=== PATIENT | male | born 1985 | race Caucasian/White ===

== ENCOUNTER 2016-03-21 10:10 | Inpatient (IN) | payer OTHER ==
[2016-03-21] VITALS (12 sets, daily range): BP systolic 77–133; BP diastolic 52–67; PULSE 64–98; RESP 16–22; O2SAT 62–98
[~2016-03-21] VITALS: Ht 172.7 cm; Wt 80.9 kg
[~2016-03-21 10:10] MED LIST: POTA10TA19 PO
--- NOTE | 2016-03-21 11:02 | ED.REPORT ---
HPI-Chest Pain Under 40 Date of Service Mar 21, 2016 ED Provider: Kirk Eubanks MD 30 year old male with a history of renal tubular acidosis, and hypokalemia presents to the ER via EMS with 24-48 hours of left substernal chest pain sudden in onset, worsening today, he has been generally fatigued, somnolent. Patient denies recent immobilization, swelling of the lower extremities, any family history of cardiac problems, history of MT, and illicit drug use. Recently he stopped taking his prescribed potassium supplements. Discussion with the patient's mother he has stopped taking all of his medications because he "no longer wishes to live". The patient admits to suicidal ideation. Nursing Notes Stated Complaint: CHEST PAIN Chief Complaint: Chest Pain-Non Cardiac Nature Nursing Notes Reviewed: Yes Allergies: Coded Allergies: No Known Allergies (Unverified , 02/14/13) Scheduled Potassium Citrate-Expunged Drug, Do Not Renew (Hmpscx-U-Acrbiyao Drug, Do Not Renew!) 10 Meq Tablet.sa 10 MEQ PO QID Miscellaneous Medications Buspirone (Buspirone) 10 Mg Tablet Citalopram (Citalopram) 20 Mg Tablet Potassium Chloride (Potassium Chloride Powder) 20 Meq Packet Spironolactone (Spironolactone) 25 Mg Tablet Trazodone (Trazodone) 100 Mg Tablet General Time Seen by MD: 11:01 Chief Complaint Chest pain Hx Obtained From: Patient Arrived By: Ambulance Sudden in Onset?: Yes Onset Occurred: Yesterday Symptom Duration: Since onset Location: : Chest left: Substernal Quality: Pressure Severity: Current: Moderate Severity: Maximum: Moderate Similar Sx Previous: Yes Past Medical History Past Medical History Renal tubular acidosis Hypokalemia Smoking History Unknown if Ever Smoker Social History Drug Use: THC Ambulatory Status Independent Review of Systems Constitutional: Denies: Chills, Fever Respiratory: Denies: Non-productive cough, Shortness of breath Cardiovascular: Reports: Chest pain GI: Reports: Abdominal pain, Nausea Musculoskeletal: Denies: Back pain, Extremity pain, Extremity swelling, Neck pain Skin: Denies Diaphoresis Complete sys rev & neg: except as marked. Physical Exam Initial Vital Signs Vital Signs (First) Date Time Temp Pulse Resp B/P Pulse Ox O2 Delivery O2 Flow Rate FiO2 03/21/16 11:01 36.5 64 16 104/64 97 Nasal Cannula 2 Initial VS: Reviewed Head / Eyes: Atraumatic, Normocephalic Extremities: Vascular intact, Neuro intact, No swelling, No tenderness Skin: Warm, Dry, No cyanosis Neurologic: Alert, Oriented, Nonfocal General/Constitutional: Awake, Well appearing, Well developed, Well nourished Alertness: Positive: Somnolent Respiratory / Chest: Breath sounds NL, Breath sounds = bilat, No respiratory distress, No rales, No rhonchi, No wheezing, No chest tenderness Cardiovascular: Heart rate NL, Regular rhythm, Heart sounds NL, No murmurs, Peripheral circulation NL, Pulses = bilaterally, No gross BP differential Neck: Supple, Full range of motion, No swelling, Non-tender, No masses, No JVD ENT: Airway patent Mouth: Positive: Mucous membranes dry Interpretation & Diagnostics Lab Results Interpretation Result Diagram: 03/21/16 1131 03/21/16 1619 Test 03/21/16 11:31 03/21/16 14:05 03/21/16 16:19 White Blood Count 29.4th/mm3 (3.8-10.1) Red Blood Count 6.62mil/mm3 (4.40-5.80) Hemoglobin 20.1g/dL (13.8-17.2) Hematocrit 52.0% (41.0-50.0) Mean Corpuscular Volume 76.3fL (81-100) Mean Corpuscular Hemoglobin 30.4pg (27.0-35.0) Mean Corpuscular Hemoglobin Concent 39.8% (32.0-37.0) Red Cell Distribution Width 15.1% (12.3-15.4) Platelet Count 503bil/L (150-400) Neutrophils (%) (Auto) 83.2% (40-74) Lymphocytes (%) (Auto) 6.7% (14-46) Monocytes (%) (Auto) 8.4% (4-12) Eosinophils (%) (Auto) 0.2% (0-5) Basophils (%) (Auto) 0.1% (0-3) Prothrombin Time 10.6sec (8.1-12.5) Prothromb Time International Ratio 0.99ratio Lactic Acid Level 3.0mmol/L (0.4-2.0) Phosphorus Level 1.3mg/dL (2.5-4.9) Total Bilirubin 0.9mg/dL (0.0-1.2) Aspartate Amino Transf (AST/SGOT) 52U/L (0-50) Alanine Aminotransferase (ALT/SGPT) 76U/L (0-44) Alkaline Phosphatase 114U/L (25-150) Troponin T 0.149ug/L (0.0-0.011) Total Protein 8.2g/dL (6.4-8.4) Albumin 4.1g/dL (3.4-5.0) Prealbumin 27mg/dL (20-40) Lipase 98U/L (13-60) Hold Minor Top Tube Received (Received) Urine Color Yellow (YELLOW) Urine Appearance Clear (CLEAR,HAZY) Urine pH 8.0 (5.0-8.0) Urine Specific [place] 1.015 (1.003-1.035) Urine Protein 100mg/dL (NEG,TRACE) Urine Glucose (UA) Negativemg/dL (NEGATIVE) Urine Ketones Negativemg/dL (NEGATIVE) Urine Occult Blood Large (NEGATIVE) Urine Nitrite Negative (NEGATIVE) Urine Bilirubin Negative (NEGATIVE) Urine Urobilinogen Normalmg/dL (NORMAL) Urine Leukocyte Esterase Negative (NEGATIVE) Urine RBC 0-2/hpf (0-2) Urine WBC 0-5/hpf (0-5) Urine Epithelial Cells Occasional/hpf (NONE-MOD) Urine Crystals None seen (NONE SEEN) Urine Bacteria Few/hpf (NONE-FEW) Urine Hyaline Casts None/lpf (NONE) Urine Granular Casts Occasional (NONE SEEN) Urine Waxy Casts None seen (NONE SEEN) Urine Red Blood Cell Casts None seen (NONE SEEN) Urine White Blood Cell Casts None seen (NONE SEEN) Urine Mucus None seen (None Seen) Urine Trichomonas None seen (NONE SEEN) Urine Yeast None (NONE SEEN) Urinalysis Comment None Urine Culture Reflexed Not indicated Urine Random Creatinine 45mg/dL (24-392) Urine Random Sodium 30mEq/L Urine Random Potassium 19.0mEq/L Total Creatine Kinase 828U/L (21-232) Sodium Level 129mEq/L (134-144) Potassium Level 1.5mEq/L (3.5-5.2) Chloride Level 92mEq/L (97-108) Carbon Dioxide Level 18mmol/L (18-29) Blood Urea Nitrogen 15mg/dL (6-20) Creatinine 1.35mg/dL (0.76-1.27) Estimat Glomerular Filtration Rate 67mL/min (>59) Glucose Level 143mg/dL (60-99) Calcium Level 8.4mg/dL (8.5-10.1) Magnesium Level 3.1mg/dL (1.6-2.6) ECG Interpretation ECG Interpretation: Sinus rhythm, rate 61 ST elevation of greater than 2mm anterolateral leads with biphasic appearing T waves throughout. Prolonged MN interval and QT interval. Patient is in 2:1 block. No prior ECG available for comparison. Time: 11:21 Interpreted by: ED physician Re-Eval/Medical Decision Med Decision/Clinical Course In summary, the patient is a 30-year-old male with a known history of renal tubular acidosis and a history of severe hypokalemia for which he has been prescribed potassium supplementation. He presents to the emergency department with generalized chest pain, fatigue, weakness and not taking any of his medications including potassium supplementation in the setting of suicidal ideation. Upon arrival the patient was borderline hypotensive with EKG obtained as above the demonstrated anterolateral ST depressions, 2-1 atrioventricular block and U waves consistent with severe hypokalemia. IV access was obtained, IV fluids were administered and IV potassium repletion was immediately started based upon history and EKG changes. The patient was maintained on continuous cardiac monitoring. Initial laboratory studies were notable as below: Troponin 0.149 K+ 1.5 WBC 29.37 Hct 52 Platelet count 503 Coagulation studies normal Sodium 126 BUN 16 Creatinine 1.3 Mildly elevated transaminases Glucose 146 Lipase 98 UDS positive for THC, opiates. UA positive for blood, without signs of infection. We obtained a previous ECG from [facility] dated 02/25/2016 that demonstrated a similar 2:1 AV block. With IV fluid resuscitation, IV potassium and IV magnesium and the patient's blood pressure stabilized. He reported significant improvement. The patient made statements that he stopped taking his medications because he no longer wanted to live. The social staff worker became involved however given the patient's ongoing immediate medical needs. Psychiatric evaluation was deferred. The patient was discussed with nephrology as well as the admitting hospitalist and he was accepted for further management. Pt was additionally reviewed with cardiology. We discussed the patient's elevated troponin however this was not felt to be due to a focal lesion and they did not feel that he was a candidate for heparinization or cardiac catheterization at this time. Patient remained in the ED for full. Of time during which serial reassessments were reassuring. The patient's vital signs stabilized. The patient when underwent ongoing IV and oral potassium repletion. Pt was admitted to the intensive care unit for further management. Source of Hx: Old records Re-Evaluation/Progress : Time of Eval: 12:16 Re-Evaluation/Progress Note: Mother is now present, at bedside. She reports aggressive noncompliance with his medications and concern for patient's psychiatric history. Consultation #1: Consulted With: Cardiology Call Returned at: 11:37 Software Maintenance Engineer: Will see patient Note: Agrees to consult. Consultation #2: Referral / Consult Name: Duane Mata MD Consulted With: Hospitalist Call Returned at: 11:48 Software Maintenance Engineer: Agrees with eval, Agrees with plan, Accepts admit Counseled Regarding: Diagnosis, Lab results, Need for admission Discharge & Departure Primary Impression: Chest pain Chest pain type: other chest pain Qualified Code: R07.89 - Other chest pain Additional Impressions: Hypokalemia Renal tubular acidosis Hypomagnesemia Hypotension Hypotension type: unspecified hypotension type Qualified Code: I95.9 - Hypotension, unspecified Suicidal ideation Noncompliance with medication regimen Acute kidney injury Leukocytosis Leukocytosis type: unspecified Qualified Code: D72.829 - Elevated white blood cell count, unspecified Severe dehydration Disposition: ADMITTED TO HOSPITAL Discharge Condition All VS Reviewed: Yes Condition: Stable Referrals: NOPCP (PCP) Crit Care Except Billable Proc Time Spent: >225 minutes Services Performed: Patient management by me, Time spent at bedside, Reviewing test results, Reviewing imaging, Discussing patient care, Documentation in record, Time with fam/surrogate Critical Care Notes: Stabilization, management of IV drips, discussion with family and consultants, reassessment. Ander Attestation Portions of this note were transcribed by Mike Randhawa. I, Dr. Eubanks, personally performed the history, physical exam and medical decision-making; I reviewed and confirmed the accuracy of the information in the transcribed note. Signed by: Ander Rios, 03/21/2016 and 13:23 Kirk Eubanks MD Mar 21, 2016 11:02 MIKE RANDHAWA Mar 21, 2016 11:22
[2016-03-21] MEDS ORDERED: Potassium Chloride Inj 30 MEQ in Dextrose 5% 100 ML IV ONE ×2 (11:20→18:05)
[2016-03-21] MEDS: D5 0.9% NaCl + KCl 20 mEq/L 1,000 ML IV SCH ×2 (11:20→15:00)
[2016-03-21] MEDS ORDERED: Potassium Chloride Inj 30 MEQ in Dextrose 5% 500 ML IV ONE (11:27)
[2016-03-21 11:41] LABS: BASOPHILS % (AUTO) 0.1 % (0-3); EOSINOPHILS % (AUTO) 0.2 % (0-5); MONOCYTES % (AUTO) 8.4 % (4-12); Mean Corpuscular Hemoglobin 30.4 pg (27.0-35.0); Mean Corpuscular Volume 76.3 fL (81-100); NEUTROPHILS % (AUTO) 83.2 % (40-74); Platelet Count 503 bil/L (150-400)
[2016-03-21 12:02] LABS: INR 0.99 ratio
[2016-03-21] MEDS ORDERED: Heparin 5,000 Unit/mL Inj IVPUSH ONE (12:15)
[2016-03-21] MEDS ORDERED: Heparin 25K Unit/500mL 0.45 NS 25,000 UNIT in IV Premix 1 EACH IV ONE (12:15)
[2016-03-21] MEDS ORDERED: 0.9% Sodium Chloride 1,000 ML IV ONE ×2 (12:20→12:40)
[2016-03-21 12:24] LABS: Magnesium 2.4 mg/dL (1.6-2.6)
[2016-03-21 12:35] LABS: TROPONIN T 0.149 ug/L (0.0-0.011)
[2016-03-21] MEDS ORDERED: Magnesium Sulf 2 Gm/50mL Water 2 GM in IV Premix 1 EACH IV ONE (12:35)
[2016-03-21] MEDS ORDERED: Sucralfate 100 mg/mL 10 mL Suspension PO ONE (13:20)
[2016-03-21] MEDS ORDERED: Senna-Docusate 8.6-50 mg Tablet PO PRN (13:30)
[2016-03-21] MEDS ORDERED: Polyethylene Glycol (PEG) 17 Gm Powder PO PRN (13:30)
[2016-03-21] MEDS ORDERED: Lactated Ringer's 1,000 ML IV SCH (13:30)
[2016-03-21] MEDS ORDERED: Alum-Mag Hydrox-Simeth 30 mL Suspension PO PRN (13:30)
[2016-03-21] MEDS ORDERED: Potassium Chloride 20 mEq SR Tablet PO ONE (13:40)
--- NOTE | 2016-03-21 13:50 | DRSVH ---
PROCEDURE: X-RAY CHEST ONE VIEW ([id number]) INDICATIONS: leukocytosis TECHNIQUE: One view of the chest was acquired. COMPARISON: None. FINDINGS: Surgical changes and devices: None. Lungs and pleura: No pleural effusions or pneumothorax. There is mild atelectasis at the left base m edially. This could represent early infiltrate. Remainder of lungs clear. Mediastinum: Mediastinal contours appear normal. Heart size is normal. Bones and chest wall: No suspicious bony lesions. Overlying soft tissues appear unremarkable. IMPRESSION: Left basilar atelectasis/infiltrate, correlate clinically for pneumonia. Dictated by: Luis Domínguez M.D. on 03/21/2016 at 13:47 Approved by: Luis Domínguez M.D. on 03/21/2016 at 13:48
[2016-03-21] MEDS ORDERED: Potassium Phos (mEq) Inj 20 MEQ in Dextrose 5% 250 ML IV ONE (14:20)
[2016-03-21] MEDS ORDERED: SPIR25TA3 (14:40)
[2016-03-21] MEDS ORDERED: TRAZ-118 (14:40)
[2016-03-21] MEDS ORDERED: POTA20PA12 (14:40)
[2016-03-21] MEDS ORDERED: BUSP10TA2 (14:40)
[2016-03-21] MEDS ORDERED: CITA20TA11 (14:40)
[2016-03-21 14:45] LABS: APPEARANCE,URINE CLEAR (CLEAR,HAZY); COLOR,URINE YELLOW (YELLOW); OCCULT BLOOD,URINE LARGE (NEGATIVE); UROBILINOGEN,URINE NORMAL (NORMAL)
--- NOTE | 2016-03-21 15:40 | PCM.HPMED ---
Subjective Date of Service Mar 21, 2016 Primary Provider: Admitting Physician: Primary Care Physician: Michael Attending Physician: Chief Complaint: Chest pain, malaise, generalized body aches History of Present Illness: Feliberto Concepcion is a 30 year old male with past medical history significant for proximal renal tubular acidosis and depression who presents with chest pain, malaise, and generalized body aches. Patient has had numerous hospitalizations over the last year with similar symptoms. He states he has been hospitalized over 12 times in the last year. Records from [facility] show that he has had a long history of medication noncompliance and discharging from the hospital against medical advice. Most recent hospitalization was 02/25/16-12/05 for hypokalemia of less than 1.5. Today patient states that the chest pain is substernal and feels like a pressure. He denies any diaphoresis but does endorse nausea, vomiting, and shortness of breath. Chest pain is not relieved by positioning or exacerbated by deep breaths. He states he has had similar chest pain in the past but this is the worst it has ever been. He states the myalgias and malaise have been increasing in intensity over the last 3-4 days. He has had increased urination over the last few days but has had poor oral intake specifically fluids. He denies any sick contacts. Denies dizziness, lightheadedness, fever, chills, dysuria, diarrhea, constipation. Approximately a year ago the patient had been following with Dr. Auguste for his renal tubular acidosis. Due to noncompliance patient has not been seen recently. He states last primary care visit was with Suzette Alvarenga over a year ago. He also was followed by a psychiatrist at [place] but has not been seen in over a year. Patient states he has no desire to follow-up as "nothing seems to help his situation." He states his medication noncompliance is due to the taste and side effects of medications. Patient reports that he is fine with dying but has not actively attempted a suicide attempt besides stopping medications. Patient is currently homeless along with his parents. On presentation to the ED patient's vitals were temperature 36.5, pulse 64, respiratory rate 16, blood pressure 104/64, oxygen saturation 97% on 2 L nasal cannula. Initial labs revealed white blood cell count 29.4, hemoglobin 20.1, hematocrit 52.0, sodium 126, potassium 1.5, carbon dioxide 14, BUN 16, creatinine 1.3 to, and troponin T of 0.149. EKG was significant for U waves consistent with severe hypokalemia in 2-1 atrioventricular block. UDS positive for THC and opiates. Patient was given 30 mEq of potassium chloride 2, magnesium sulfate 2 g, and 2 L NS. Review of Systems: Comprehensive review of systems was conducted with the patient and found to be negative except as noted above in HPI. Allergies Coded Allergies: No Known Allergies (Unverified , 02/14/13) Home Medications Has not taken home medications for the past 12 months. States he was prescribed spironolactone, potassium citrate, magnesium, propranolol, trazodone, Celexa, and BuSpar. PMH Renal tubular acidosis Depression Anxiety Tobacco use Surgical History None Family History Significant cardiovascular disease present on maternal and paternal side. Mother - no known health concerns Father - diabetes Patient has a cousin who has a similar renal disease that is seen by a forklift material handler in [place]. Social History Occupation: unemployed Hx Alcohol Use: Yes (occasional) Hx Substance Use: Yes (daily marijuana use) Hx Tobacco Use: Yes (one pack per day) Smoking Status: Current Every Day Smoker Living Arrangement: Homeless Exam Vital Signs Vital Sign - Last Date Time Temp Pulse Resp B/P Pulse Ox O2 Delivery O2 Flow Rate FiO2 03/21/16 12:47 91 17 101/59 97 Room Air 2 03/21/16 11:01 36.5 Exam General: No acute distress, well-developed, well-nourished, appropriately interactive, poor hygiene HEENT: Normocephalic, atraumatic. External ears without defect. Pupils equal, round, and reactive to light and accommodation. Anicteric sclerae, moist conjunctivae, and no lid lag. Oropharynx free of erythema and cobble stoning. Mucous membranes dry. Neck: Supple with full range of motion. No jugular venous distension. No bruits. No lymphadenopathy or thyromegaly. Cardiovascular: Regular rate and rhythm with no murmurs, rubs, or gallops appreciated Pulmonary: Clear to auscultation bilaterally with no crackles, wheezes, or rhonchi. Normal respiratory effort with no use of accessory muscles. Abdomen: Bowel tones present. Soft, diffuse tenderness, nondistended. No hepatosplenomegaly or masses appreciated. Extremities: No clubbing, cyanosis, edema, or lymphadenopathy appreciated. Skin: Normal temperature, turgor, and texture; no rash, ulcers, or subcutaneous nodules appreciated. Neurological: Cranial nerves grossly intact. Normal muscle strength, tone, and bulk. Reflexes, coordination, and sensory function within normal limits. No known gait impairment. Psychiatric: Alert and oriented to person, place, and time. Lab and Diagnostics Labs Laboratory Tests Test 03/21/16 14:05 Urine Color Yellow Urine Appearance Clear Urine pH 8.0 Urine Specific [place] 1.015 Urine Protein 100mg/dL Urine Glucose (UA) Negativemg/dL Urine Ketones Negativemg/dL Urine Occult Blood Large Urine Nitrite Negative Urine Bilirubin Negative Urine Urobilinogen Normalmg/dL Urine Leukocyte Esterase Negative Urine RBC 0-2/hpf Urine WBC 0-5/hpf Urine Epithelial Cells Occasional/hpf Urine Crystals None seen Urine Bacteria Few/hpf Urine Hyaline Casts None/lpf Urine Granular Casts Occasional Urine Waxy Casts None seen Urine Red Blood Cell Casts None seen Urine White Blood Cell Casts None seen Urine Mucus None seen Urine Trichomonas None seen Urine Yeast None Urinalysis Comment None Urine Culture Reflexed Not indicated Urine Random Creatinine 45mg/dL Urine Random Sodium 30mEq/L Urine Random Potassium 19.0mEq/L UDS positive for THC and opiates. Result Diagram: 03/21/16 1131 03/21/16 1131 X-Rays, CTs and MRIs X-RAY CHEST ONE VIEW IMPRESSION: Left basilar atelectasis/infiltrate, correlate clinically for pneumonia. Dictated by: Luis Domínguez M.D. on 03/21/2016 at 13:47 Approved by: Luis Domínguez M.D. on 03/21/2016 at 13:48 12-lead ECG Sinus rhythm rate of 61 U waves present Assessment & Plan Feliberto Concepcion is a 30 year old male with past medical history significant for proximal renal tubular acidosis and depression who presents with chest pain, malaise, and generalized body aches. Admitted for severe hypokalemia. 1. Severe Hypokalemia, present on admission. Active. - Etiology secondary to renal tubular acidosis and medication noncompliance. - On admission potassium 1.5 and magnesium 2.4 - U waves present on EKG. - Potassium 30 mEq 2 replaced through peripheral line in ED. - Repeat potassium pending. - Monitor on telemetry. - Nephrology consulted. Appreciate time and expertise. 2. Renal tubular acidosis, present on admission. Active. - Patient was followed by Dr. Auguste, nephrology, but has not been seen in approximately year and is noncompliant with medications over the last 12 months. - Patient states she was supposed to be taking potassium and magnesium supplements along with spironolactone and propranolol. - Patient will need to be restarted on home medication regimen that he can be compliant with upon discharge. - Urinalysis and additional urine studies pending. -will hold off bicarbonate drip given severe hypokalemia - Nephrology consulted. Appreciate time and expertise 3. Chest pain due to suspected demand ischemia , present on admission. Active. - Likely secondary to hypokalemia and demand ischemia. - Initial troponin elevated at 0.149. Trending troponins 3. - EKG showed U-waves. - Metoprolol 12.5 mg twice a day. - Chest pain relieved with morphine. - Chest x-ray showed no acute cardiopulmonary process. - Echocardiogram planned for today. - Electrolyte management as above. 4. Leukocytosis, present on admission. Active. - Prior records from [facility] show persistent leukocytosis of unknown etiology. Patient has never completed a workup due to noncompliance. - On admission WBC 29.4. Patient is hemoconcentrated at this time. - Procalcitonin pending. - Repeat labs and we will continue to monitor. -will hold off empiric antibiotics 5. Elevated lactic acid, present on admission. Active. - Lactic acid of 3.0. - Fluids as above. - We will repeat. 6. Concern for suicidal thoughts, present on admission. Active. - Patient states he is fine with dying. He has been noncompliant with medications but no other attempts at suicide. - We will medically stabilized patient initially and then consider psychiatric evaluation. 7. Depression, present on admission. Chronic. - Patient states he was seen [facility] but has not followed up with them in over a year. - He has not taken his medications in over a year. - Medications included BuSpar, Celexa, and trazodone. 8. Hypovolemic, present on admission. Active. - Patient states she has had poor by mouth intake. - Fluids as above. - CBC appears hemoconcentrated. - We will continue to monitor. 9. Tobacco use, present on admission. Active. - Nicotine patch 21 mg daily. 10.hyponatremia,acute -hypovolumic -fluid replacement as above -continue monitor 11.Jonathan -prerenal -IV fluids as above dvt ppx ;lovenox Patient is admitted under inpatient status with expected length of stay greater than 2 minutes due to severity of presenting symptoms, risk of adverse event, and complexity of treatment plan. GI Prophylaxis: Not indicated VTE Prophylaxis: Sub-Q Enoxaparin Resuscitation Status: CPR: Attempt Resuscitation Time spent 60 minutes Attending Statement patient seen and examined with Dr Mays, I agree with the history,exam, impression and plan as outlined above GABO MAYS DO Mar 21, 2016 13:05 Duane Mata MD Mar 21, 2016 16:08
[2016-03-21 17:12] LABS: Magnesium 3.1 mg/dL (1.6-2.6)
[2016-03-21] MEDS ORDERED: Potassium Chloride 20 mEq/15 mL 15mL Oral Soln PO ONE ×2 (17:40→18:05)
[2016-03-21] MEDS ORDERED: KCL IV ONE (17:45)
[2016-03-21] MEDS ORDERED: [UNRECOGNIZED DRUG - OTHER] IV ONE (17:45)
[2016-03-21] MEDS ORDERED: Mag Sulf 4 Gm/100 mL IV Premix (Mag < 1.6 & Creat < 2) IV ONE (18:35)
[2016-03-21] MEDS ORDERED: Potassium Chloride 20 mEq/15 mL Oral Soln (K < 3 Creat <2) TUBE SCH (18:35)
[2016-03-21] MEDS ORDERED: Mag Sulf 2 Gm/50mL IV Premix(Mag < 1.6 & Creat > 2) IV ONE (18:35)
--- NOTE | 2016-03-21 18:36 | PCM.CHPMED ---
Subjective Date of Service: Mar 21, 2016 Provider requesting consult: Kirk Eubanks MD Primary Physician: Admitting Physician: Primary Care Physician: Suzette Alvarenga PA-C Attending Physician: Admit Status: From the Emergency Department, Full Admit Chief Complaint: Chief Complaint: Proximal RTA type II. . History of Present Illness: Nephrology consultation note: Attending Dr. Aguirre Feliberto Concepcion is a 30-year-old male with a past medical history significant for proximal renal tubular acidosis type II with associated hypokalemia who presents [facility] emergency department with complaints of nausea, vomiting, generalized weakness, myalgias and chest pain. The patient reports that he began having generalized weakness with myalgias 2-3 days ago which have been worsening in intensity. He reports that he had nausea and vomiting 4 episodes yesterday with mild diffuse abdominal pain. He had a mild episode of chest pain yesterday that resolved. He reports the chest pain became really "bad "today around 9:30 AM. He describes the chest pain as pressure-like sensation that is located substernally. The chest pain does not radiate. He had associated shortness of breath and diaphoresis. He reports he has had chest pain like this in the past but this is the worst episode he has had. He also reports suicidal ideation without a plan and denies ever attempting to commit suicide in the past. Additionally, he reports that he has been hearing voices, specifically hearing a radio playing in the background all day or hearing someone say something and he continues to hear it repeatedly all day, as well as, delusions. He reports he is homeless and lives out of his vehicle. He has had decreased PO intake and has not taken his medications for over one month. He also reports increased urination despite not drinking much fluid. He denies headache, lightheadedness or dizziness, current shortness of breath, fever, chills, dysuria, diarrhea or constipation. He denies recent NSAID use. He has no rashes. Of note, the patient has had numerous hospitalizations over the last year with similar symptoms. He states he has been hospitalized over 12 times in the last year. Records from [facility] show that he has had a long history of medication noncompliance and discharging from the hospital against medical advice. Most recent hospitalization was 02/25/16-02/29/16 for hypokalemia of less than 1.5. From Dr. Sanchez's note: Approximately a year ago the patient had been following with Dr. Auguste for his renal tubular acidosis. Due to noncompliance patient has not been seen recently. He states last primary care visit was with Suzette Alvarenga over a year ago. He also was followed by a psychiatrist at [place] but has not been seen in over a year. Patient states he has no desire to follow-up as "nothing seems to help his situation." He states his medication noncompliance is due to the taste and side effects of medications. Patient reports that he is fine with dying but has not actively attempted a suicide attempt besides stopping medications. Patient is currently homeless along with his parents. On presentation to the ED patient's vitals were temperature 36.5, pulse 64, respiratory rate 16, blood pressure 104/64, oxygen saturation 97% on 2 L nasal cannula. Initial labs revealed white blood cell count 29.4, hemoglobin 20.1, hematocrit 52.0, sodium 126, potassium 1.5, carbon dioxide 14, BUN 16, creatinine 1.3 to, and troponin T of 0.149. EKG was significant for U waves consistent with severe hypokalemia in 2-1 atrioventricular block. UDS positive for THC and opiates. Patient was given 30 mEq of potassium chloride 2, magnesium sulfate 2 g 1, 1 L NS, and 1 L D5W KCl. . Review of Systems: A comprehensive review of systems was conducted with the patient and found to be negative except as above in the History of Present Illness. . PMH Past Medical History 1. Proximal renal tubular acidosis type II. 2. Depression likely with psychotic features. 3. Anxiety. . Surgical History None. . Home Medications The patient reports he has not taken these medications in over one month: Unknown doses of: Risperidone, BuSpar, Celexa, and propanolol. Potassium citrate 10 mEq 4 times a day. . Allergies: Coded Allergies: No Known Allergies (Unverified , 02/14/13) Family History Family History Mother with unknown type of arthritis otherwise healthy. Father with diabetes mellitus type II and depression. One biological brother who is healthy. One biological sister who was diagnosed with Gittelman syndrome, however, likely RTA. Half-brother who has unknown type of arthritis. Half-sister who is healthy. . Social History Occupation: unemployed Hx Alcohol Use: Yes (occasional)Hx Substance Use: Yes (daily marijuana use)Hx Tobacco Use: Yes (1 PPD 12 years) Smoking Status: Current Every Day Smoker Living Arrangement: Homeless Additional Information The patient is single and has never been . He has no children of his own. He is currently applying for Social Security. He reports in ninth or 10th grade level of education. He currently is homeless and lives out of his vehicle and [place]. . Exam Vital Signs Vital Sign - Last Date Time Temp Pulse Resp B/P Pulse Ox O2 Delivery O2 Flow Rate FiO2 03/21/16 16:20 36.7 98 18 98/52 98 Nasal Cannula 1 General: Alert, Oriented X3, Cooperative Head: Normal Eyes: PERRLA, EOMI Nose: Dry membranes Mouth: Mouth Normal, Mucous Membranes Dry Neck: No Thyromegaly Chest & Lungs: Clear to auscultation & percussion, No adventitious breath sounds Cardiovascular: Regular Rate/Rhythm, Normal S1, Normal S2, No Murmurs/Rubs/ Gallops Pulses: NL carotid, radial, femoral, DP, PT Abdomen: Tender (mild, diffuse), Non-distended, No masses, No hepatosplenomegaly, Soft Genitourinary: Blood Absent Extremities: No cyanosis/clubbing/edma bilat Neurological: Grossly Neurologically Intact, Normal Speech, Strength Normal 4/ 4 ext, Sensation Intact Lab and Diagnostics Labs Item Value Date Time Urine Color Yellow 03/21/16 1405 Urine Appearance Clear 03/21/16 1405 Urine pH 8.0 03/21/16 1405 Urine Specific [place] 1.015 03/21/16 1405 Urine Protein 100 mg/dL 03/21/16 1405 Urine Glucose (UA) Negative mg/dL 03/21/16 1405 Urine Ketones Negative mg/dL 03/21/16 1405 Urine Occult Blood Large 03/21/16 1405 Urine Nitrite Negative 03/21/16 1405 Urine Bilirubin Negative 03/21/16 1405 Urine Urobilinogen Normal mg/dL 03/21/16 1405 Urine Leukocyte Esterase Negative 03/21/16 1405 Urine RBC 0-2 /hpf 03/21/16 1405 Urine WBC 0-5 /hpf 03/21/16 1405 Urine Epithelial Cells Occasional /hpf 03/21/16 1405 Urine Crystals None seen 03/21/16 1405 Urine Bacteria Few /hpf 03/21/16 1405 Urine Hyaline Casts None /lpf 03/21/16 1405 Urine Granular Casts Occasional 03/21/16 1405 Urine Waxy Casts None seen 03/21/16 1405 Urine White Blood Cell Casts None seen 03/21/16 1405 Urine Red Blood Cell Casts None seen 03/21/16 1405 Urine Mucus None seen 03/21/16 1405 Urine Trichomonas None seen 03/21/16 1405 Urine Yeast None 03/21/16 1405 Urinalysis Comment None 03/21/16 1405 Urine Culture Reflexed Not indicated 03/21/16 1405 Urine Random Creatinine 45 mg/dL 03/21/16 1405 Urine Random Sodium 30 mEq/L 03/21/16 1405 Urine Random Potassium 19.0 mEq/L 03/21/16 1405 Item Value Date Time Calcium Level 8.8 mg/dL 03/21/16 1131 Magnesium Level 2.4 mg/dL 03/21/16 1131 Total Bilirubin 0.9 mg/dL 03/21/16 1131 Aspartate Amino Transf (AST/SGOT) 52 U/L H 03/21/16 1131 Alanine Aminotransferase (ALT/SGPT) 76 U/L H 03/21/16 1131 Alkaline Phosphatase 114 U/L 03/21/16 1131 Troponin T 0.149 ug/L *H 03/21/16 1131 Total Protein 8.2 g/dL 03/21/16 1131 Albumin 4.1 g/dL 03/21/16 1131 Lipase 98 U/L H 03/21/16 1131 Prealbumin 27 mg/dL 03/21/16 1131 Phosphorus Level 1.3 mg/dL L 03/21/16 1131 Lactic Acid Level 3.0 mmol/L H 03/21/16 1131 Result Diagram: 03/21/16 1131 03/21/16 1619 X-Rays, CTs and MRIs X-RAY CHEST ONE VIEW IMPRESSION: Left basilar atelectasis/infiltrate, correlate clinically for pneumonia. Dictated by: Luis Domínguez M.D. on 03/21/2016 at 13:47 Approved by: Luis Domínguez M.D. on 03/21/2016 at 13:48 . 12-lead ECG EKG: Sinus rhythm, heart rate 61, normal axis, prolonged MO interval and QT interval, 2-1 AV block, ST elevation greater than 2 mm in anterior leads, u waves. . Assessment & Plan Assessment Feliberto Concepcion is a 30-year-old male with a past medical history significant for proximal renal tubular acidosis type II with associated hypokalemia who presents [facility] emergency department with complaints of nausea, vomiting, generalized weakness, myalgias and chest pain. Impression: 1. Proximal renal tubular acidosis type II. 2. Anion gap metabolic acidosis secondary to lactic acidosis with a underlying non-anion gap metabolic acidosis. 3. Elevated troponin. 4. Acute kidney injury multifactorial and secondary to prerenal azotemia ( hypovolemia) and proximal RTA type II. 5. Suicidal ideation. 6. 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 7. Anxiety. 8. Medication non-compliance. Recommendations: The patient presented with severe hypokalemia secondary to proximal renal tubular acidosis type II. He likely has a familial history with a biological sister who has similar symptoms and has been diagnosed with Gittelman's which is conversely RTA as well. He may need a genetic workup in the future. He will need aggressive fluid resuscitation, as well as, potassium repletion. Recommend avoiding sodium as this will only cause him to excrete and lose more potassium. Also recommend avoiding sodium bicarbonate as this will increase filtration of sodium bicarbonate above the reabsorption capacity and a bicarbonate diuresis will ensue, as well as, enhanced potassium excretion. Will check other electrolytes including phosphate and uric acid as this may represent a Fanconi syndrome. In regards to his elevated troponin and lactic acidosis this is likely secondary to demand ischemia from severe hypokalemia. - Switch IV fluids to D5W with 40 mEq KCl at a rate of 125 mL/hr. - Ordered potassium phosphate 30 mmol concentrated in 250 mL D5W. - Ordered spironolactone 25 mg to be given now and to start daily. - Ordered phosphate, uric acid and urine protein/creatinine ratio. - Placed patient on a 1500 mL fluid restriction. - We will need to recheck a BMP in approximately 4 hours. The above was discussed in detail with Dr. Aguirre of nephrology and he agrees with the assessment and plan. Thank you for this most interesting consult. We will continue to follow along with you. Problems: GI Prophylaxis: Not indicated VTE Prophylaxis: Sub-Q Enoxaparin Resuscitation Status: CPR: Attempt Resuscitation Diya Chery DO Mar 21, 2016 18:36
[2016-03-21] MEDS ORDERED: Potassium Phos (mMol) Inj 30 MMOL in Dextrose 5% 250 ML IV ONE (18:50)
--- NOTE | 2016-03-21 20:15 | NUR ---
Pt admitted from ED to CCU. Transferred from [facility] to bed with some assist. Pt is more weak than normal. A/O x3 but a little demanding at times. RA sats are 97% but pt is insisting on wearing oxygen, states " it makes me feel comfortable". o2 at 2 lpm via NC for pt comfort. Tele: normal sinus rhythm with occ. pvc's. Denies chest pain at this time. Pt appears to have some type of mild contractures to hands but is able to rehab liaison cup and other items. VSS. Will continue to monitor pt closely.
[2016-03-22] VITALS (8 sets, daily range): BP systolic 16–125; BP diastolic 54–70; PULSE 83–106; RESP 15–30; O2SAT 95–99
--- NOTE | 2016-03-22 00:52 | NUR ---
spoke with dr. benavides about replacing potassium. wants to write orders and replace as we get labs back. not to use protocols at this time, she will just write orders. Will start with protocols in am if needed.
[2016-03-22 02:49] LABS: BASOPHILS % (AUTO) 0.1 % (0-3); EOSINOPHILS % (AUTO) 0.3 % (0-5); MONOCYTES % (AUTO) 9.2 % (4-12); Mean Corpuscular Hemoglobin 30.6 pg (27.0-35.0); Mean Corpuscular Volume 77.1 fL (81-100); NEUTROPHILS % (AUTO) 82.8 % (40-74); Platelet Count 461 bil/L (150-400)
[2016-03-22 03:57] LABS: Magnesium 2.4 mg/dL (1.6-2.6); Phosphorus 3.6 mg/dL (2.5-4.9)
[2016-03-22] MEDS ORDERED: Potassium Chloride Inj 30 MEQ in Dextrose 5% 500 ML IV ONE (05:20)
--- NOTE | 2016-03-22 07:22 | NUR ---
Thirst/anx Pt c/o thirst all night, anxious about fluid restriction. Medicated with ativan per pt request and MD orders, and using small amounts of ice chips to moisten mouth. Both effective in keeping pt comfortable.
[2016-03-22] MEDS ORDERED: Potassium Chloride 20 mEq SR Tablet PO ONE ×3 (07:50→22:55)
[2016-03-22] MEDS ORDERED: Sodium Chloride LOK Flush 10 mL Syringe IVFLUSH PRN ×2 (07:50)
--- NOTE | 2016-03-22 09:50 | DRSVH ---
[facility] [address] [place] [address] Echocardiogram Report Name: LEI OCHOA Study Date: 03/22/2016 Height: 68 in Hospital Exam Location: [facility] Weight: 185 lb Gender: Male BSA: 2.0 m2 : 1985 Age: 30 yrs BP: 124/64 mm Hg Reason For Study: HYPOTENSION, HYPOKALEMIA Ordering Physician: HOSPITALIST [facility] Performed By: Wade Ellis Referring Physician: GABO MAYS Interpretation Summary The ejection fraction is estimated to be 65-70%. There is a trivial pericardial effusion noted. There is no significant valvular heart disease. Procedure: A two-dimensional transthoracic echocardiogram with color flow and Doppler was performed. The study quality was technically adequate. There is no prior echocardiogram noted for this patient. The patient was in normal sinus rhythm during the exam. Left Ventricle: The left ventricle is normal in size. Left ventricular wall thickness is borderline increased. The ejection fraction is estimated to be 65-70%. Left ventricular wall motion is normal. Right Ventricle: The right ventricle is normal in size, thickness and function. Atria: The left atrial size is normal. Right atrial size is normal. The interatrial septum is intact with no evidence for an atrial septal defect. Mitral Valve: The mitral valve is normal. There is trace mitral regurgitation. Aortic Valve: The aortic valve is normal in structure and function. No aortic regurgitation is present. Tricuspid Valve: The tricuspid valve is normal. Pulmonary artery pressures cannot be estimated because of the lack of a measurable TR jet velocity. Pulmonic Valve: The pulmonic valve leaflets are thin and pliable; valve motion is normal. There is a trace or physiologic amount of pulmonic regurgitation. Great Vessels: The aortic root is normal size. The dimensions of the ascending aorta are normal. The pulmonary artery is normal size. The IVC is of normal diameter and collapses greater than 50% with a sniff. This suggests a low right atrial pressure of 3 mm Hg. Pericardium/ Pleura There is a trivial pericardial effusion noted. There is no pleural effusion. MMode/2D Measurements & Calculations LVIDd: 4.4 cm RA long axis LVOT diam: 2.2 cm LVIDs: 2.4 cm LA A2 area: 12.2 cm AoV Opening FS: 46.2 % LA A4 area: 12.6 cm RA area IVSd: 0.95 cm LA length (vol) Ao root diam LVPWd: 0.99 cm : 15.0 cm LA vol: 29.0 ml RA vol asc Aorta Diam LA vol index : 43.5 ml RA Ao Arch Diam (Prox : 14.7 ml/m2 : 22.0 mm2 Trans): 2.3 cm LV art. diameter/BSA LV sys. diameter/BSA (cm/m^2): 2.2 (cm/m^2): 1.2 Doppler Measurements & Calculations Ao V2 max MV E max rene MV E/A: 1.4 PA V2 max : 154.7 cm/sec : 75.6 cm/sec Med Peak E' Rene : 110.4 cm/sec Ao max P.6 mmHg MV A max rene PA mean PG Ao mean P.9 mmHg : 54.4 cm/sec E/E' med: 14.1 : 2.9 mmHg LVOT Max Rene Lat Peak E' Rene : 126.3 cm/sec E/E' lat: 7.2 LIANET(I,D): 3.2 cm E/e' average sev ratio: 0.88 MV A dur: 0.12 sec MV dec time: 0.18 sec Ao V2 mean LV V1 max PG PA V2 mean : 105.1 cm/sec : 81.4 cm/sec Ao V2 VTI: 21.6 cmLV V1 VTI: 19.1 cm PA pr(Accel) : 46.3 mmHg LIANET(V,D): 3.0 cm2 LIANET indexed to [facility] (cm^2/m^2): 1.6 Electronically signed by: Davie Hoyos on Reading Physician:03/22/2016 09:49 AM
--- NOTE | 2016-03-22 09:52 | NUR ---
Social Work: Brief Note Data: Pt is a 30 y/o male admitted for RTA/hypokalemia. Pt's PCP is Dr Alvarenga, pt's insurance is [employer]. EMR reviewed. POT FISHER met with pt and confirmed that pt is homeless. Pt states he sometimes stays with family or friends, and usually has a roof over his head, but that he does not have a home. Pt states he is connected with [facility] in [place]. POT FISHER offered homelessness resources, pt declined. No further d/c planning needs anticipated at this time. POT FISHER will continue to follow if needs arise. Assessment: Pt who is independent at baseline, homeless. Plan: Pt will d/c back to community or home with a family member when medically stable. No further d/c planning needs anticipated at this time. POT FISHER will continue to follow if needs arise. FLASH James
[2016-03-22 13:11] LABS: TROPONIN T 0.117 ug/L (0.0-0.011)
[2016-03-22] MEDS ORDERED: KCl 40 mEq/D5W 500 mL 40 MEQ in IV Premix 500 EACH IV ONE (13:15)
[2016-03-22] MEDS: Potassium Chloride 20 mEq SR Tablet PO SCH ×8 (14:00→20:14)
--- NOTE | 2016-03-22 14:25 | PCM.PNMED ---
Subjective Date of Service Mar 22, 2016 Subjective Feliberto Concepcion is a 30 year old male with past medical history significant for proximal renal tubular acidosis and depression who presents with chest pain, malaise, and generalized body aches. Admitted for severe hypokalemia. Hospital day 2. Overnight: Patient transferred to floor and asking for increased pain medication. Patient given Ativan and morphine alternating every 2 hours. Today: Patient is lying in bed. Continues to request something to drink. Patient has one functional peripheral line and has refused PICC placement. Oral and IV potassium continue to be administered. Patient endorses diffuse muscular pain but denies chest pain, shortness of breath, nausea, or palpitations. Remaining review of systems negative. Exam Vital Signs Vital Sign - Last Date Time Temp Pulse Resp B/P Pulse Ox O2 Delivery O2 Flow Rate FiO2 03/22/16 04:42 36.4 83 20 125/66 96 Nasal Cannula 1.00 Intake and Output 03/21/16 03/21/16 03/22/16 Cumulative From/Thru 15:00 23:00 07:00 03/21/16 11:01 - 03/22/16 05:54 Intake Total 3740 ml 460 ml 1488 ml 5688 ml Output Total 700 ml 1200 ml 1325 ml 3225 ml Balance 3040 ml -740 ml 163 ml 2463 ml Intake Oral 240 ml 460 ml 200 ml 900 ml IV Total 3500 ml 1288 ml 4788 ml Output Urine Total 700 ml 1200 ml 1325 ml 3225 ml Exam General: No acute distress, well-developed, well-nourished, poor hygiene HEENT: Normocephalic, atraumatic. External ears without defect. Pupils equal, round, and reactive to light and accommodation. Anicteric sclerae, moist conjunctivae, and no lid lag. Oropharynx free of erythema and cobble stoning. Mucous membranes moist. Neck: Supple with full range of motion. No jugular venous distension. No bruits. No lymphadenopathy or thyromegaly. Cardiovascular: Regular rate and rhythm with no murmurs, rubs, or gallops appreciated Pulmonary: Clear to auscultation bilaterally with no crackles, wheezes, or rhonchi. Normal respiratory effort with no use of accessory muscles. Abdomen: Bowel tones present. Soft, diffuse tenderness, nondistended. No hepatosplenomegaly or masses appreciated. Extremities: No clubbing, cyanosis, edema, or lymphadenopathy appreciated. Skin: Normal temperature, turgor, and texture; no rash, ulcers, or subcutaneous nodules appreciated. Neurological: Cranial nerves grossly intact. Normal muscle strength, tone, and bulk. Reflexes, coordination, and sensory function within normal limits. No known gait impairment. Psychiatric: Alert and oriented to person, place, and time. Lab and Diagnostics Result Diagram: 03/22/166 03/22/166 X-Rays, CTs and MRIs X-RAY CHEST ONE VIEW IMPRESSION: Left basilar atelectasis/infiltrate, correlate clinically for pneumonia. Dictated by: Luis Domínguez M.D. on 03/21/2016 at 13:47 Approved by: Luis Domínguez M.D. on 03/21/2016 at 13:48 12-lead ECG Sinus rhythm rate of 61 U waves present Cardiac Echo Impressions Echocardiogram Report Interpretation Summary The ejection fraction is estimated to be 65-70%. There is a trivial pericardial effusion noted. There is no significant valvular heart disease. Electronically signed by: Davie Hoyos on Reading Physician:03/22/2016 09:49 AM Assessment & Plan Feliberto Concepcion is a 30 year old male with past medical history significant for proximal renal tubular acidosis and depression who presents with chest pain, malaise, and generalized body aches. Admitted for severe hypokalemia. Hospital day 2. 1. Severe Hypokalemia, present on admission. Active. - Etiology secondary to renal tubular acidosis and medication noncompliance. - On admission potassium 1.5 and magnesium 2.4 - U waves present on EKG. - Spironolactone 25 mg daily. - Amiloride 5 mg BID. - Potassium continuing to be replaced orally and intravenously via peripheral line . patient refused PICC line and we are unable to replace potassium as fast as we wanted - Monitor on telemetry. - Nephrology consulted. Appreciate time and expertise. 2. Proximal renal tubular acidosis, present on admission. Active. - Patient was followed by Dr. Auguste, nephrology, but has not been seen in approximately year and is noncompliant with medications over the last 12 months. - Patient states she was supposed to be taking potassium and magnesium supplements along with spironolactone and propranolol. - Patient will need to be restarted on home medication regimen that he can be compliant with upon discharge. - Nephrology consulted. Appreciate time and expertise 3. Chest pain due to suspected demand ischemia , present on admission. Resolved. - Likely secondary to hypokalemia and demand ischemia. - Initial troponin elevated at 0.149. Troponins trending down. - EKG showed U-waves. - Metoprolol 12.5 mg twice a day.c/w ASA - Chest x-ray showed no acute cardiopulmonary process. - Echocardiogram unremarkable. Results above. - Electrolyte management as above. 4. Leukocytosis, present on admission. Active. - Prior records from [facility] show persistent leukocytosis of unknown etiology. Patient has never completed a workup due to noncompliance. - On admission WBC 29.4. Patient is hemoconcentrated at this time. - Procalcitonin 0.43. - Blood smear and path review pending. - Repeat labs and we will continue to monitor. - Will hold off empiric antibiotics 5. Elevated lactic acid, present on admission. Resolved. - Lactic acid of 3.0. Normalized. 6. Concern for suicidal thoughts, present on admission. Active. - Patient states he is fine with dying but has no active thoughts or plans. He has been noncompliant with medications but no other attempts at suicide. - We will medically stabilized patient initially and then consider psychiatric evaluation. 7. Depression, present on admission. Chronic. - Patient states he was [facility] but has not followed up with them in over a year. - He has not taken his medications in over a year. - Medications included BuSpar, Celexa, and trazodone. 8. Tobacco use, present on admission. Active. - Nicotine patch 21 mg daily. 9. Hypovolemic hyponatremia, present on admission. Active. - Patient states he has had poor by mouth intake. - CBC appears hemoconcentrated. - Continue monitor. 10. Acute kidney injury, present on admission. Active. - Prerenal. - Treatment as above. High risk medications: morphine and lorazepam Disposition: Discharge pending potassium and electrolyte replacement and leukocytosis work up. Pain Evaluation: Adequate Pain Control GI Prophylaxis: Not indicated VTE Prophylaxis: Sub-Q Enoxaparin VTE Mechanical Devices: Intermittant Pneumatic CD Resuscitation Status: CPR: Attempt Resuscitation Attending Statement patient seen and examined with Dr Mays, I agree with the history,exam, impression and plan as outlined above GABO MAYS DO Mar 22, 2016 06:56 Duane Mata MD Mar 22, 2016 16:49
--- NOTE | 2016-03-22 16:55 | PCM.PNMED ---
Subjective Date of Service Mar 22, 2016 Subjective Nephrology Progress Note: Attending Dr. 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 Hospital day #2. Overnight: The patient had an episode of anxiety and was given Ativan. Otherwise there are no acute events. Telemetry overnight: Sinus rhythm, heart rate 80s, with occasional PVCs. The patient is resting in bed comfortably and in no acute distress. The patient reports that he feels rather sad. He also endorses myalgias that are improving, as well as, thirst that is chronic in nature and he feels is related to his depression. Otherwise he has no complaints. He denies headache, chest pain, palpitations, shortness of breath, abdominal pain, nausea, vomiting, fever , chills, dysuria, diarrhea or constipation. He is voiding and eliminating without difficulty. Exam Vital Signs Vital Sign - Last Date Time Temp Pulse Resp B/P Pulse Ox O2 Delivery O2 Flow Rate FiO2 03/22/16 12:00 36.8 91 24 114/70 99 Nasal Cannula 2.00 Intake and Output 03/21/16 03/21/16 03/22/16 Cumulative From/Thru 15:00 23:00 07:00 03/21/16 11:01 - 03/22/16 05:54 Intake Total 3740 ml 460 ml 1488 ml 5688 ml Output Total 700 ml 1200 ml 1325 ml 3225 ml Balance 3040 ml -740 ml 163 ml 2463 ml Intake Oral 240 ml 460 ml 200 ml 900 ml IV Total 3500 ml 1288 ml 4788 ml Output Urine Total 700 ml 1200 ml 1325 ml 3225 ml Exam General: Young gentleman lying in bed and in no acute distress, well-developed, well-nourished, appropriately interactive. HEENT: Normocephalic, atraumatic. External ears without defect. Pupils equal, round, and reactive to light. No band keratopathy. Anicteric sclerae, moist conjunctivae, and no lid lag. Oropharynx free of erythema and cobble stoning with moist mucosa. Neck: Supple with full range of motion. No lymphadenopathy or thyromegaly. Cardiovascular: Regular rate and rhythm with no murmurs, rubs, or gallops appreciated Pulmonary: Clear to auscultation bilaterally with no crackles, wheezes, or rhonchi. Normal respiratory effort with no use of accessory muscles. Abdomen: Soft, mild tenderness to palpation diffusely, nondistended, bowel sounds present. No hepatosplenomegaly or masses appreciated. Extremities: No clubbing, cyanosis, or edema. Skin: Normal temperature, turgor, and texture; no rash, ulcers, or subcutaneous nodules appreciated. Neurological: Cranial nerves grossly intact. Psychiatric: Flat affect. Depressed mood. . IVs and Medications Medications Reviewed: Medications were reviewed in detail Lab and Diagnostics Item Value Date Time Troponin T 0.149 ug/L *H 03/21/16 1131 Troponin T 0.136 ug/L *H 03/21/16 2033 Troponin T 0.090 ug/L *H 03/22/16 0236 Troponin T 0.117 ug/L *H 03/22/16 1207 Result Diagram: 03/22/16 0236 03/22/16 1207 Microbiology MRSA screen pending. . X-Rays, CTs and MRIs X-RAY CHEST ONE VIEW IMPRESSION: Left basilar atelectasis/infiltrate, correlate clinically for pneumonia. Dictated by: Luis Domínguez M.D. on 03/21/2016 at 13:47 Approved by: Luis Domínguez M.D. on 03/21/2016 at 13:48 . 12-lead ECG EKG: Sinus rhythm, heart rate 61, normal axis, prolonged AK interval and QT interval, 2-1 AV block, ST elevation greater than 2 mm in anterior leads, u waves. . Cardiac Echo Impressions Echocardiogram Report Interpretation Summary The ejection fraction is estimated to be 65-70%. There is a trivial pericardial effusion noted. There is no significant valvular heart disease. Electronically signed by: Davie Hoyos on Reading Physician:03/22/2016 09:49 AM . 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 Hospital day #2. 1. Proximal renal tubular acidosis type II. 2. Mixed anion gap metabolic acidosis secondary to lactic acidosis and non- anion gap metabolic acidosis secondary to proximal RTA type II. 3. Elevated troponin. 4. Mild acute kidney injury multifactorial and secondary to prerenal azotemia ( hypovolemia) and proximal RTA type II. 5. Hypophosphatemia. Resolved. 6. Suicidal ideation. 7. 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 8. Anxiety. 9. Medication non-compliance. Recommendations: The patient presented with severe hypokalemia secondary to proximal renal tubular acidosis type II. He likely has a genetic component as he has a biological sister who has similar symptoms and has been diagnosed with Gittelman 's which is conversely likely RTA as well. He may need a genetic workup in the future. He will need aggressive fluid resuscitation, as well as, potassium repletion. Recommend avoiding sodium as this will only cause him to excrete and lose more potassium. Also recommend avoiding sodium bicarbonate as this will increase filtration of sodium bicarbonate above the reabsorption capacity and a bicarbonate diuresis will ensue, as well as, enhanced potassium excretion. Will check other electrolytes including phosphate and uric acid as this may represent a Fanconi syndrome. In regards to his elevated troponin and lactic acidosis this is likely secondary to demand ischemia from severe hypokalemia. - Started amiloride 5 mg twice a day to block ENaC channel in DCT and consequently sodium reabsorption/potassium excretion. - Continue IV fluids with D5W 40 mEq KCl at a rate of 125 mL/hr. - Continue aggressive potassium repletion with a KCl 40 mEq IV 1, and KCl 40 mEq PO 4 doses every 30 minutes. We will repeat a potassium level 2 hours after. - Continue spironolactone 25 mg daily. - Continue to monitor magnesium and phosphate daily. - Continue 1500 mL fluid restriction. - Continue to monitor potassium level periodically throughout the next several days as we aggressively replete. - Renal function slowly improving and returning to baseline. Continue to monitor urine output and renal function daily. . GI Prophylaxis: Not indicated VTE Prophylaxis: Sub-Q Enoxaparin VTE Mechanical Devices: Intermittant Pneumatic CD Resuscitation Status: CPR: Attempt Resuscitation Attending Statement She was seen and examined along with the internal medicine resident Dr. Chery, patient continues to have persistent hypokalemia despite nearly around-the- clock potassium supplementation. May be a component of psychogenic polydipsia which may be adding to the hypokalemia. Discussed therapeutic plan is as detailed above. Diya Chery DO Mar 22, 2016 16:55 Jose J Aguirre DO Mar 22, 2016 18:16
[2016-03-22 17:14] LABS: TROPONIN T 0.109 ug/L (0.0-0.011)
[2016-03-22 17:15] LABS: Magnesium 2.1 mg/dL (1.6-2.6)
[2016-03-22] MEDS: Ondansetron 2 mg/mL 2 mL Inj IVPUSH PRN (17:34)
[2016-03-22] MEDS ORDERED: KCl 40 mEq/D5W 500 mL 40 MEQ in IV Premix 1 EACH IV SCH (18:00)
--- NOTE | 2016-03-22 18:36 | NUR ---
Peripheral line/K+ replacement/noncompliance Pt's 2 PIV that were infusing the potassium this AM started started getting red, puffy and painful. D/Cd them, put hot packs on and called IV therapy. Pt refusing PICC line, so 2 PIV replaced by IV therapy. Pt tolerating IV K+ at rate of 131 with no trouble. Pt taking oral K+ per order, but not very happy about it. In afternoon, pt's K+ still critically low, went into room with MD and discussed with patient the need to place a PICC because of risk of such low potassium and high risk of cardiac arrhythmias. Also discussed it with patient and parents present per his request. Pt kept asking why we couldn't just put more lines in with more potassium and didn't seem to understand when we explained that it had to go in at a fairly slow rate with a lot of fluid in order to not ruin the veins and cause more problems. He finally consented to a PICC with his parents present and helping him understand the importance of getting the IV K+ in quickly. Finally he decided to get the PICC, but he didn't want to take his PO K+ until he was done with PICC placement. Report passed to oncoming RN. Frequent rounding continues. IV ativan given PRN anxiety.
--- NOTE | 2016-03-22 19:20 | DRSVH ---
PROCEDURE: X-RAY PICC LINE PLACEMENT BY NURSE ([id number]) INDICATIONS: PICC line placement COMPARISON: None. FINDINGS: PICC was placed by the intravenous therapy team from the right side. Fluoroscopic spot fi lm demonstrates tip of PICC in the distal SVC. IMPRESSION: Tip of PICC lies within the distal SVC. Dictated by: Kayy Monteolngo MD, PhD on 03/22/2016 at 19:18 Approved by: Kayy Montelongo MD, PhD on 03/22/2016 at 19:18
[2016-03-22] MEDS: KCl 40 mEq/100 mL (CENTRAL) 40 MEQ in IV Premix 1 EACH IV SCH (20:11)
[2016-03-22 22:40] LABS: Phosphorus 3.9 mg/dL (2.5-4.9)
[2016-03-22] MEDS ORDERED: KCl 40 mEq/100 mL (CENTRAL) 40 MEQ in IV Premix 1 EACH IV ONE (22:55)
[2016-03-23] MEDS: KCl 40 mEq/100 mL (CENTRAL) 40 MEQ in IV Premix 1 EACH IV SCH ×6 (01:31→23:14)
[2016-03-23 01:43] LABS: Magnesium 2.2 mg/dL (1.6-2.6)
[2016-03-23 03:40] VITALS: BP 100/59; PULSE 83; RESP 17; O2SAT 97
[2016-03-23 05:49] LABS: BASOPHILS % (AUTO) 0.1 % (0-3); EOSINOPHILS % (AUTO) 0.8 % (0-5); MONOCYTES % (AUTO) 9.9 % (4-12); Mean Corpuscular Hemoglobin 30.4 pg (27.0-35.0); Mean Corpuscular Volume 79.4 fL (81-100); NEUTROPHILS % (AUTO) 82.9 % (40-74); Platelet Count 386 bil/L (150-400)
--- NOTE | 2016-03-23 06:33 | NUR ---
Cardiac/GI/ Patient stable this shift, no ectopy noted other than occasional PVC's, Multiple K riders and PO potassium given this shift, K 2.4 and then 1.9, AM K pending at this time, nausea and vomited x1 1300ml this shift, 2 BM's liquid diarrhea, voiding in urinal, c/o abd pain and MS 4mg given x1, patient sleeping well after pain medication, patient c/o mild pain at 0530 and said he wanted MS to help him go back to sleep, reassessed 10 min later and patient was snoring and sleeping well, no s/sx of pain, will continue to monitor. no distress noted. Addendum: 03/23/16 at 0642 by YESSI DE SOUZA RN Amended: Links added.
[2016-03-23] MEDS ORDERED: KCl 40 mEq/100 mL (CENTRAL) 40 MEQ in IV Premix 1 EACH IV SCH (07:00)
[2016-03-23 07:33] VITALS: BP 109/59; PULSE 89; RESP 19; O2SAT 98
[2016-03-23] MEDS: Ondansetron 2 mg/mL 2 mL Inj IVPUSH PRN (07:45)
--- NOTE | 2016-03-23 09:12 | NUR ---
Nausea/med refusal Patient had 500ml of light brown/green emesis after having a loose BM. Antiemetic was offered but initially patient declined medication. Patient stated that his nausea did not resolved but proceeded to order a large breakfast. After some persuading patient agreed to receive IV antiemetic- Zofran 8mg IV was given. Patient denied having any chest pain this morning, he stated felling tired and wanted to be left alone. Patient refused morning dose of metoprolol PO- MD aware- heart rate 80s-90s- BP stable please refer to CCU flow sheet. Patient stated this morning the he was "discussed with the poor hygiene and unsanitary environment around him." Patient misplaced/through on the floor several dirty/soiled item, clothing and towels. Patient was asked to stop throwing things on the floor and was asked to use his call light to asked staff to help him with placing such items in linen bin- patient reluctantly agreed. Call light was placed within patients reach and patient was reminded that he can also use nurse buttons on the side of the bed which were functioning- continue assessment and frequent rounds.
[2016-03-23 10:55] LABS: Magnesium 1.9 mg/dL (1.6-2.6)
[2016-03-23] MEDS: Acetaminophen IV 1,000 MG in IV Premix 1 EACH IV PRN ×2 (11:14→16:48)
[2016-03-23 11:20] LABS: TROPONIN T 0.041 ug/L (0.0-0.011)
--- NOTE | 2016-03-23 11:22 | PCM.PNMED ---
Subjective Date of Service Mar 23, 2016 Subjective Nephrology Progress Note: Attending Dr. 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 Hospital day #3. Overnight: Overnight the patient had one episode of nausea and vomiting with approximately 1300 mL out, 2 episodes of diarrhea, and abdominal pain for which he was given 4 mg of IV morphine with relief. Otherwise there are no acute events. Telemetry overnight: Sinus rhythm, heart rate 70 to 90s, with occasional PVCs and occasional ST runs. The patient is resting in bed comfortably and in no acute distress. The patient is reluctant to talk to us today. He reports that he did not take his medications when he left the hospital in the past because he did not want to. He is voiding and eliminating without difficulty. . Exam Vital Signs Vital Sign - Last Date Time Temp Pulse Resp B/P Pulse Ox O2 Delivery O2 Flow Rate FiO2 03/23/16 07:33 37.1 89 19 109/59 98 Nasal Cannula 2.00 Intake and Output 03/22/16 03/22/16 03/23/16 Cumulative From/Thru 15:00 23:00 07:00 03/21/16 11:01 - 03/23/16 05:19 Intake Total 3379 ml 2570 ml 72396 ml Output Total 1500 ml 3125 ml 7850 ml Balance 1879 ml -555 ml 3787 ml Intake Oral 700 ml 900 ml 2500 ml IV Total 2679 ml 1670 ml 9137 ml Output Urine Total 1500 ml 1825 ml 6550 ml Emesis 1300 ml 1300 ml # Bowel Movements 2 2 Exam General: Young gentleman lying in bed and in no acute distress, well-developed, well-nourished, appropriately interactive. HEENT: Normocephalic, atraumatic. External ears without defect. Pupils equal, round, and reactive to light. No band keratopathy. Anicteric sclerae, moist conjunctivae, and no lid lag. Oropharynx free of erythema and cobble stoning with moist mucosa. Neck: Supple with full range of motion. No lymphadenopathy or thyromegaly. Cardiovascular: Regular rate and rhythm with no murmurs, rubs, or gallops appreciated Pulmonary: Clear to auscultation bilaterally with no crackles, wheezes, or rhonchi. Normal respiratory effort with no use of accessory muscles. Abdomen: Soft, nontender, nondistended, bowel sounds present. No hepatosplenomegaly or masses appreciated. Extremities: No clubbing, cyanosis, or edema. Skin: Normal temperature, turgor, and texture; no rash, ulcers, or subcutaneous nodules appreciated. Neurological: Cranial nerves grossly intact. Psychiatric: Flat affect. Depressed mood. IVs and Medications Medications Reviewed: Medications were reviewed in detail Lab and Diagnostics Item Value Date Time Calcium Level 8.6 mg/dL 03/23/16 0500 Magnesium Level 2.0 mg/dL 03/23/16 0500 Total Bilirubin 0.9 mg/dL 03/23/16 0500 Aspartate Amino Transf (AST/SGOT) 61 U/L H 03/23/16 0500 Alanine Aminotransferase (ALT/SGPT) 51 U/L H 03/23/16 0500 Alkaline Phosphatase 94 U/L 03/23/16 0500 Total Protein 6.5 g/dL 03/23/16 0500 Albumin 3.7 g/dL 03/23/16 0500 Result Diagram: 03/23/16 0500 03/23/16 0500 Microbiology MRSA screen negative. Influenza screen negative. Respiratory viral PCR negative. . X-Rays, CTs and MRIs X-RAY CHEST ONE VIEW IMPRESSION: Left basilar atelectasis/infiltrate, correlate clinically for pneumonia. Dictated by: Luis Domínguez M.D. on 03/21/2016 at 13:47 Approved by: Luis Domínguez M.D. on 03/21/2016 at 13:48 . 12-lead ECG EKG: Sinus rhythm, heart rate 61, normal axis, prolonged [place] interval and QT interval, 2-1 AV block, ST elevation greater than 2 mm in anterior leads, u waves. . Cardiac Echo Impressions Echocardiogram Report Interpretation Summary The ejection fraction is estimated to be 65-70%. There is a trivial pericardial effusion noted. There is no significant valvular heart disease. Electronically signed by: Davie Hoyos on Reading Physician:03/22/2016 09:49 AM . 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 Hospital day #2. 1. Proximal renal tubular acidosis type II. 2. Mixed anion gap metabolic acidosis secondary to lactic acidosis and non- anion gap metabolic acidosis secondary to proximal RTA type II. 3. Elevated troponin. 4. Mild acute kidney injury multifactorial and secondary to prerenal azotemia ( hypovolemia) and proximal RTA type II. 5. Hypophosphatemia. Resolved. 6. Suicidal ideation. 7. 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 8. Anxiety. 9. Medication non-compliance. Recommendations: The patient presented with severe hypokalemia secondary to proximal renal tubular acidosis type II. He likely has a genetic component as he has a biological sister who has similar symptoms and has been diagnosed with Gittelman 's which is conversely likely RTA as well. He may need a genetic workup in the future. He will need aggressive fluid resuscitation, as well as, potassium repletion. Recommend avoiding sodium as this will only cause him to excrete and lose more potassium. Also recommend avoiding sodium bicarbonate as this will increase filtration of sodium bicarbonate above the reabsorption capacity and a bicarbonate diuresis will ensue, as well as, enhanced potassium excretion. Will check other electrolytes including phosphate and uric acid as this may represent a Fanconi syndrome. In regards to his elevated troponin and lactic acidosis this is likely secondary to demand ischemia from severe hypokalemia. - Increase amiloride from 5 mg twice a day to 10 mg twice a day to block ENaC channel in DCT and consequently sodium reabsorption/potassium excretion. - Continue IV fluids with D5W 40 mEq KCl at a rate of 125 mL/hr. - Continue aggressive potassium repletion with a KCl 40 mEq IV 3 doses. We will repeat a potassium level 2 hours after complete. - Continue spironolactone 25 mg daily. - Continue to monitor magnesium and phosphate daily. - Continue 1500 mL fluid restriction. - Continue to monitor potassium level periodically throughout the next several days as we aggressively replete. - Renal function slowly improving and returning to baseline. Continue to monitor urine output and renal function daily. . GI Prophylaxis: Not indicated VTE Prophylaxis: Sub-Q Enoxaparin VTE Mechanical Devices: Intermittant Pneumatic CD Resuscitation Status: CPR: Attempt Resuscitation Attending Statement Nephrology attending: The patient has been examined and interviewed along with the internal medicine resident. We have discussed the plan and this is detailed above which I agree with. Diya Chery DO Mar 23, 2016 11:22 Jose J Aguirre DO Mar 23, 2016 15:50
[2016-03-23 11:37] VITALS: BP 89/54; PULSE 96; RESP 21; O2SAT 98
--- NOTE | 2016-03-23 12:05 | PCM.PNMED ---
Subjective Date of Service Mar 23, 2016 Subjective Feliberto Concepcion is a 30 year old male with past medical history significant for proximal renal tubular acidosis and depression who presents with chest pain, malaise, and generalized body aches. Admitted for severe hypokalemia. Hospital day 3. Overnight: PICC line placed and potassium replacement rate able to increase started last night. Patient nauseous last night with two episodes of emesis. Today: Patient is lying in bed. Continues to complain of diffuse muscle aches but denies chest pain. Patient developed loose stool and some nausea. Potassium continuing to infuse. Remaining review of systems negative. Exam Vital Signs Vital Sign - Last Date Time Temp Pulse Resp B/P Pulse Ox O2 Delivery O2 Flow Rate FiO2 03/23/16 03:40 Supplement Oxygen 03/23/16 03:40 37.0 83 17 100/59 97 2.00 Intake and Output 03/22/16 03/22/16 03/23/16 Cumulative From/Thru 15:00 23:00 07:00 03/21/16 11:01 - 03/23/16 05:19 Intake Total 3379 ml 2570 ml 14452 ml Output Total 1500 ml 3125 ml 7850 ml Balance 1879 ml -555 ml 3787 ml Intake Oral 700 ml 900 ml 2500 ml IV Total 2679 ml 1670 ml 9137 ml Output Urine Total 1500 ml 1825 ml 6550 ml Emesis 1300 ml 1300 ml # Bowel Movements 2 2 Exam General: No acute distress, well-developed, well-nourished, poor hygiene HEENT: Normocephalic, atraumatic. External ears without defect. Pupils equal, round, and reactive to light and accommodation. Anicteric sclerae, moist conjunctivae, and no lid lag. Oropharynx free of erythema and cobble stoning. Mucous membranes moist. Neck: Supple with full range of motion. No jugular venous distension. No bruits. No lymphadenopathy or thyromegaly. Cardiovascular: Regular rate and rhythm with no murmurs, rubs, or gallops appreciated Pulmonary: Clear to auscultation bilaterally with no crackles, wheezes, or rhonchi. Normal respiratory effort with no use of accessory muscles. Abdomen: Bowel tones present. Soft, diffuse tenderness, nondistended. No hepatosplenomegaly or masses appreciated. Extremities: No clubbing, cyanosis, edema, or lymphadenopathy appreciated. Skin: Normal temperature, turgor, and texture; no rash, ulcers, or subcutaneous nodules appreciated. Neurological: Cranial nerves grossly intact. Normal muscle strength, tone, and bulk. Reflexes, coordination, and sensory function within normal limits. No known gait impairment. Psychiatric: Alert and oriented to person, place, and time. Lines: Right PICC line. Bilaterally peripherals. Lab and Diagnostics Result Diagram: 03/23/16 0500 03/23/16 0500 Microbiology MRSA screen pending. . X-Rays, CTs and MRIs X-RAY CHEST ONE VIEW IMPRESSION: Left basilar atelectasis/infiltrate, correlate clinically for pneumonia. Dictated by: Luis Domínguez M.D. on 03/21/2016 at 13:47 Approved by: Luis Domínguez M.D. on 03/21/2016 at 13:48 . 12-lead ECG EKG: Sinus rhythm, heart rate 61, normal axis, prolonged [place] interval and QT interval, 2-1 AV block, ST elevation greater than 2 mm in anterior leads, u waves. . Cardiac Echo Impressions Echocardiogram Report Interpretation Summary The ejection fraction is estimated to be 65-70%. There is a trivial pericardial effusion noted. There is no significant valvular heart disease. Electronically signed by: Davie Hoyos on Reading Physician:03/22/2016 09:49 AM . Assessment & Plan Feliberto Concepcion is a 30 year old male with past medical history significant for proximal renal tubular acidosis and depression who presents with chest pain, malaise, and generalized body aches. Admitted for severe hypokalemia. Hospital day 3. 1. Severe Hypokalemia, present on admission. Active. - Etiology secondary to renal tubular acidosis and medication noncompliance. - On admission potassium 1.5 and magnesium 2.4. - U waves present on initial EKG. - Potassium this morning 2.3. - Spironolactone 25 mg daily. - Amiloride 10 mg BID. - Potassium replaced through PICC line that was placed last night. - Monitor on telemetry. - Nephrology consulted. Appreciate time and expertise. 2. Proximal renal tubular acidosis, present on admission. Active. - Patient was followed by Dr. Auguste, nephrology, but has not been seen in approximately year and is noncompliant with medications over the last 12 months. - Patient states she was supposed to be taking potassium and magnesium supplements along with spironolactone and propranolol. - Patient will need to be restarted on home medication regimen that he can be compliant with upon discharge. - Nephrology consulted. Appreciate time and expertise 3. Leukocytosis, present on admission. Improving. - Prior records from [facility] show persistent leukocytosis of unknown etiology. Patient has never completed a workup due to noncompliance. - On admission WBC 29.4. Patient is hemoconcentrated at this time. - WBC currently 15.9. - Procalcitonin 0.43. - Blood smear showed no schistocytes and path review pending. - Repeat labs and we will continue to monitor. - Will hold off empiric antibiotics 3. Chest pain due to suspected demand ischemia , present on admission. Resolved. - Likely secondary to hypokalemia and demand ischemia. - Initial troponin elevated at 0.149. Troponins trending down. - EKG showed U-waves. - Metoprolol 12.5 mg twice a day.c/w ASA - Chest x-ray showed no acute cardiopulmonary process. - Echocardiogram unremarkable. Results above. - Electrolyte management as above. 5. Elevated lactic acid, present on admission. Resolved. - Lactic acid of 3.0. Normalized. 6. Concern for suicidal thoughts, present on admission. Active. - Patient states he is fine with dying but has no active thoughts or plans. He has been noncompliant with medications but no other attempts at suicide. - We will medically stabilized patient initially and then consider psychiatric evaluation. -denies suicidal ideation currently 7. Depression, present on admission. Chronic. - Patient states he was seen [facility] but has not followed up with them in over a year. - He has not taken his medications in over a year. - Medications included BuSpar, Celexa, and trazodone. 8. Tobacco use, present on admission. Active. - Nicotine patch 21 mg daily. 9. Hypovolemic hyponatremia, present on admission. Active. - Patient states he has had poor by mouth intake. - CBC appears hemoconcentrated. - Continue monitor. 10. Acute kidney injury, present on admission. Active. - Prerenal. - Treatment as above. 11. Diarrhea, not present on admission. Active. - Likely secondary to large amounts of electrolyte replacement. - Imodium Q6H PRN. Disposition: Discharge pending potassium and electrolyte replacement and leukocytosis work up. GI Prophylaxis: Not indicated VTE Prophylaxis: Sub-Q Enoxaparin VTE Mechanical Devices: Intermittant Pneumatic CD Resuscitation Status: CPR: Attempt Resuscitation Attending Statement patient seen and examined with Dr Mays ,I agree with history,exam ,assessment and plan as outlined above . GABO MAYS DO Mar 23, 2016 07:00 Duane Mata MD Mar 23, 2016 16:45
[2016-03-23 16:07] VITALS: BP 115/73; PULSE 108; RESP 19; O2SAT 98
--- NOTE | 2016-03-23 17:13 | NUR ---
Refusal of antiemetic/pain management Patient continued to have loose stool /diarrhea 5 timed so far today- Imodium PO was offered to prevent farther diarrhea and excretion of potassium through loose stool- patient continue to decline med. Patient was asking for morphine IV several times earlier today for abdominal pain. Consulted with MD- MD asked specifically asked that morphine not be given to the patient and discontinued med from patients med list. This was explained to the patient and Tylenol IV dose was given- patient was able to relax and slept for more than 3h following Tylenol IV. Patient asked for morphine again this evening he was reminded that morphine is no longer on his medication list patient became agitated and anxious this time- Ativan 0.5mg IV was given X1 patient was able to relax. Tylenol IV was also given to the patient- continue assessment.
[2016-03-23 20:35] VITALS: BP 102/60; PULSE 94; RESP 20; O2SAT 99
[2016-03-24 00:35] VITALS: BP 92/60; PULSE 97; RESP 22; O2SAT 99
[2016-03-24] MEDS: Acetaminophen IV 1,000 MG in IV Premix 1 EACH IV PRN (01:50)
[2016-03-24 04:11] LABS: BASOPHILS % (AUTO) 0.3 % (0-3); MONOCYTES % (AUTO) 8.1 % (4-12); Mean Corpuscular Hemoglobin 30.7 pg (27.0-35.0); Mean Corpuscular Volume 80.6 fL (81-100); NEUTROPHILS % (AUTO) 71.1 % (40-74); Platelet Count 369 bil/L (150-400)
[2016-03-24 04:35] VITALS: BP 94/61; PULSE 90; RESP 22; O2SAT 97
[2016-03-24 04:40] LABS: TROPONIN T 0.015 ug/L (0.0-0.011)
[2016-03-24 04:50] LABS: Phosphorus 3.5 mg/dL (2.5-4.9)
[2016-03-24] MEDS: KCl 40 mEq/100 mL (CENTRAL) 40 MEQ in IV Premix 1 EACH IV SCH ×5 (06:00→21:24)
--- NOTE | 2016-03-24 07:35 | NUR ---
Pain/Care refusal Pt continues to report myalgia pain. States this is the pain he feels at home, and normally does not take anything for it. Specifically requesting IV narcotics to treat pain and is frustrated we are not providing narcotics for pain, despite being given IV acetaminophen multiple times. Was also given ativan when requested. Started to refuse care, including f/u blood draw. Continued to kink arm and pull off leads and cords on purpose. MD aware of pt attitude. Finally got pt to agree to care after he threatened to leave AMA (mom refued to drive him home). Will continue to monitor. Care ongoing
[2016-03-24 08:08] VITALS: BP 99/56; PULSE 87; PULSE 88; RESP 22; O2SAT 99
[2016-03-24] MEDS ORDERED: 0.9% Sodium Chloride 1,000 ML IV ONE (09:20)
[2016-03-24] MEDS: 0.9% NaCl + KCl 20 mEq/L 1,000 ML IV SCH (09:59)
--- NOTE | 2016-03-24 10:32 | DRSVH ---
PROCEDURE: US ABDOMEN INDICATIONS: elevated liver enzymes TECHNIQUE: Real-time scanning was performed of the abdominal and retroperitoneal organs, with image documentatio n. COMPARISON: None. FINDINGS: Liver length: 17.87 cm Gallbladder Wall Thickness: 1.20 mm CHD: 3 mm CBD: 3.70 mm Spleen length: 14.11 cm Right kidney length: 12.35 cm Left kidney length: 11.02 cm Aorta(Proximal): 1.65 cm Aorta(Mid): 1.97 cm, 1.54 cm Aorta(Distal): 1.67 cm RCIA: 1.41 cm LCIA: 1.41 cm Liver: Liver is diffusely increased in echogenicity. No focal hepatic abnormalities identified. No rmal hepatic size. Gallbladder: Normal gallbladder. Biliary ducts: Intrahepatic bile ducts are non-dilated. Extrahepatic bile duct caliber is normal. Normal is 6-7 mm or less in diameter, or 10 mm or less post-cholecystectomy. Pancreas: Visualized portions of the pancreas are sonographically normal. Spleen: Spleen is normal in size and homogeneous in echotexture. Kidneys: Kidneys are normal in size and echotexture. No hydronephrosis or nephrolithiasis. No chapincito d masses. Aorta: Visualized aorta is normal in caliber at less than 3 cm. Iliacs: Proximal common iliac arteries are normal in caliber at less than 2.5 cm. IVC: Intrahepatic inferior vena cava is patent. Miscellaneous: No free abdominal fluid. IMPRESSION: Increased hepatic echogenicity noted likely related to fatty infiltration of the liver b ut other sources of hepatocellular disease cannot be excluded. Recommend clinical correlation. Dictated by: Justin Briceno [facility] Interpreted: Kayy Montelongo MD on 03/24/2016 at 10:31 Transcribed by: ALLISON on 03/24/2016 at 10:32 Approved by: Kayy Montelongo MD, PhD on 03/24/2016 at 16:47
--- NOTE | 2016-03-24 11:51 | PCM.PNMED ---
Subjective Date of Service Mar 24, 2016 Subjective Nephrology Progress Note: Attending Dr. Timothy Nyeemir is a 30-year-old male with a past medical history significant for proximal renal tubular acidosis type II with associated hypokalemia who presents [facility] emergency department with complaints of nausea, vomiting, generalized weakness, myalgias and chest pain who is now being treated for severe hypokalemia secondary to proximal renal tubular acidosis type II. Hospital day #3. Overnight: The patient continued to request narcotics for myalgias. He also refused nursing care and threatened to leave AMA. Otherwise there are no acute events. Telemetry overnight: Sinus rhythm, heart rate 80 to 90s, with occasional ST runs. The patient is resting in bed comfortably and in no acute distress. The patient is continues to be reluctant to talk to us. He is voiding and eliminating without difficulty. . Exam Vital Signs Vital Sign - Last Date Time Temp Pulse Resp B/P Pulse Ox O2 Delivery O2 Flow Rate FiO2 03/24/16 08:08 37.2 87 22 99/56 99 Room Air 03/23/16 07:33 2.00 Intake and Output 03/23/16 03/23/16 03/24/16 Cumulative From/Thru 15:00 23:00 07:00 03/21/16 11:01 - 03/24/16 06:28 Intake Total 3665 ml 1857 ml 60136 ml Output Total 4500 ml 1900 ml 11247 ml Balance -835 ml -43 ml 2909 ml Intake Oral 2160 ml 1400 ml 6060 ml IV Total 1505 ml 457 ml 31259 ml Output Urine Total 6550 ml Urine/Stool Mix 4500 ml 1900 ml 6400 ml Emesis 1300 ml # Voids 1 1 # Bowel Movements 5 1 8 IVs and Medications Medications Reviewed: Medications were reviewed in detail Lab and Diagnostics Item Value Date Time Calcium Level 8.9 mg/dL 03/24/16 0350 Phosphorus Level 3.5 mg/dL 03/24/16 0350 Magnesium Level 2.0 mg/dL 03/24/16 0350 Total Bilirubin 0.5 mg/dL 03/24/16 0350 Aspartate Amino Transf (AST/SGOT) 92 U/L H 03/24/16 0350 Alanine Aminotransferase (ALT/SGPT) 57 U/L H 03/24/16 0350 Alkaline Phosphatase 101 U/L 03/24/16 0350 Troponin T 0.015 ug/L H 03/24/16 0350 Total Protein 6.9 g/dL 03/24/16 0350 Albumin 3.8 g/dL 03/24/16 0350 Prealbumin 23 mg/dL 03/24/16 0350 Result Diagram: 03/24/16 0350 03/24/16 0350 Microbiology MRSA screen negative. Influenza screen negative. Respiratory viral PCR negative. . X-Rays, CTs and MRIs X-RAY CHEST ONE VIEW IMPRESSION: Left basilar atelectasis/infiltrate, correlate clinically for pneumonia. Dictated by: Luis Domínguez M.D. on 03/21/2016 at 13:47 Approved by: Luis Domínguez M.D. on 03/21/2016 at 13:48 . 12-lead ECG EKG: Sinus rhythm, heart rate 61, normal axis, prolonged [place] interval and QT interval, 2-1 AV block, ST elevation greater than 2 mm in anterior leads, u waves. . Echocardiogram Report Interpretation Summary The ejection fraction is estimated to be 65-70%. There is a trivial pericardial effusion noted. There is no significant valvular heart disease. Electronically signed by: Davie Hoyos on Reading Physician:03/22/2016 09:49 AM . 12-lead ECG EKG: Sinus rhythm, heart rate 61, normal axis, prolonged NM interval and QT interval, 2-1 AV block, ST elevation greater than 2 mm in anterior leads, u waves. . Cardiac Echo Impressions Echocardiogram Report Interpretation Summary The ejection fraction is estimated to be 65-70%. There is a trivial pericardial effusion noted. There is no significant valvular heart disease. Electronically signed by: Davie Hoyos on Reading Physician:03/22/2016 09:49 AM . Assessment & Plan Feliberto Concepcion is a 30-year-old male with a past medical history significant for proximal renal tubular acidosis type II with associated hypokalemia who presents [facility] emergency department with complaints of nausea, vomiting, generalized weakness, myalgias and chest pain who is now being treated for severe hypokalemia secondary to proximal renal tubular acidosis type II. Hospital day #3. 1. Proximal renal tubular acidosis type II. 2. Mixed anion gap metabolic acidosis secondary to lactic acidosis and non- anion gap metabolic acidosis secondary to proximal RTA type II. 3. Elevated troponin. 4. Mild acute kidney injury multifactorial and secondary to prerenal azotemia ( hypovolemia) and proximal RTA type II. 5. Nephrotic syndrome. 6. Suicidal ideation. 7. 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 8. Anxiety. 9. Medication non-compliance. Recommendations: The patient presented with severe hypokalemia secondary to proximal renal tubular acidosis type II. He likely has a genetic component as he has a biological sister who has similar symptoms and has been diagnosed with Gittelman 's which is conversely likely RTA as well. He may need a genetic workup in the future. He will need aggressive fluid resuscitation, as well as, potassium repletion. Recommend avoiding sodium as this will only cause him to excrete and lose more potassium. Also recommend avoiding sodium bicarbonate as this will increase filtration of sodium bicarbonate above the reabsorption capacity and a bicarbonate diuresis will ensue, as well as, enhanced potassium excretion. Will check other electrolytes including phosphate and uric acid as this may represent a Fanconi syndrome. In regards to his elevated troponin and lactic acidosis this is likely secondary to demand ischemia from severe hypokalemia. - Urine protein to creatinine ratio was 3.23 indicating nephrotic syndrome. - Increase amiloride from 10 mg twice a day to 15 mg twice a day to block ENaC channel in DCT and consequently sodium reabsorption/potassium excretion. - Continue IV fluids with D5W 40 mEq KCl at a rate of 125 mL/hr. - Continue aggressive potassium repletion with a KCl 40 mEq IV 2 doses. We will repeat a potassium level 2 hours after complete. - Stopped spironolactone 25 mg daily. - Continue to monitor magnesium and phosphate daily. - Continue 1500 mL fluid restriction. - Continue to monitor potassium level periodically throughout the next several days as we aggressively replete. - Renal function slowly improving and returning to baseline. Continue to monitor urine output and renal function daily. . GI Prophylaxis: Not indicated VTE Prophylaxis: Sub-Q Enoxaparin VTE Mechanical Devices: Intermittant Pneumatic CD Resuscitation Status: CPR: Attempt Resuscitation [place],Diya Block DO Mar 24, 2016 11:51
[2016-03-24 12:01] VITALS: BP 112/68; PULSE 97; O2SAT 100
[2016-03-24] MEDS ORDERED: Potassium Phos (mEq) Inj 40 MEQ in Dextrose 5% 500 ML IV ONE ×4 (14:30)
--- NOTE | 2016-03-24 14:37 | PCM.PNMED ---
Subjective Date of Service Mar 24, 2016 Subjective Feliberto Concepcion is a 30 year old male with past medical history significant for proximal renal tubular acidosis and depression who presents with chest pain, malaise, and generalized body aches. Admitted for severe hypokalemia. Hospital day 4. Overnight: No acute events. Today: Patient is lying in bed. Purposefully bending arm to occlude IV. No complaints of pain. Denies shortness of breath, chest pain, nausea, or vomiting at this time. Remaining review of systems negative. Exam Vital Signs Vital Sign - Last Date Time Temp Pulse Resp B/P Pulse Ox O2 Delivery O2 Flow Rate FiO2 03/24/16 12:01 37.0 97 112/68 100 Room Air 03/24/16 08:08 22 03/23/16 07:33 2.00 Intake and Output 03/23/16 03/23/16 03/24/16 Cumulative From/Thru 15:00 23:00 07:00 03/21/16 11:01 - 03/24/16 06:28 Intake Total 3665 ml 1857 ml 22513 ml Output Total 4500 ml 1900 ml 65719 ml Balance -835 ml -43 ml 2909 ml Intake Oral 2160 ml 1400 ml 6060 ml IV Total 1505 ml 457 ml 04551 ml Output Urine Total 6550 ml Urine/Stool Mix 4500 ml 1900 ml 6400 ml Emesis 1300 ml # Voids 1 1 # Bowel Movements 5 1 8 Exam General: No acute distress, well-developed, well-nourished, poor hygiene HEENT: Normocephalic, atraumatic. External ears without defect. Pupils equal, round, and reactive to light and accommodation. Anicteric sclerae, moist conjunctivae, and no lid lag. Oropharynx free of erythema and cobble stoning. Mucous membranes moist. Neck: Supple with full range of motion. No jugular venous distension. No bruits. No lymphadenopathy or thyromegaly. Cardiovascular: Regular rate and rhythm with no murmurs, rubs, or gallops appreciated Pulmonary: Clear to auscultation bilaterally with no crackles, wheezes, or rhonchi. Normal respiratory effort with no use of accessory muscles. Abdomen: Bowel tones present. Soft, diffuse tenderness, nondistended. No hepatosplenomegaly or masses appreciated. Extremities: No clubbing, cyanosis, edema, or lymphadenopathy appreciated. Skin: Normal temperature, turgor, and texture; no rash, ulcers, or subcutaneous nodules appreciated. Neurological: Cranial nerves grossly intact. Normal muscle strength, tone, and bulk. Reflexes, coordination, and sensory function within normal limits. No known gait impairment. Psychiatric: Alert and oriented to person, place, and time. Lines: Right PICC line. Bilaterally peripherals. Lab and Diagnostics Result Diagram: 03/24/16 0350 03/24/16 1311 Microbiology MRSA screen negative. Influenza screen negative. Respiratory viral PCR negative. . X-Rays, CTs and MRIs X-RAY CHEST ONE VIEW IMPRESSION: Left basilar atelectasis/infiltrate, correlate clinically for pneumonia. Dictated by: Luis Domínguez M.D. on 03/21/2016 at 13:47 Approved by: Luis Domínguez M.D. on 03/21/2016 at 13:48 . 12-lead ECG EKG: Sinus rhythm, heart rate 61, normal axis, prolonged CT interval and QT interval, 2-1 AV block, ST elevation greater than 2 mm in anterior leads, u waves. . Echocardiogram Report Interpretation Summary The ejection fraction is estimated to be 65-70%. There is a trivial pericardial effusion noted. There is no significant valvular heart disease. Electronically signed by: Davie Hoyos on Reading Physician:03/22/2016 09:49 AM . 12-lead ECG EKG: Sinus rhythm, heart rate 61, normal axis, prolonged CT interval and QT interval, 2-1 AV block, ST elevation greater than 2 mm in anterior leads, u waves. . Cardiac Echo Impressions Echocardiogram Report Interpretation Summary The ejection fraction is estimated to be 65-70%. There is a trivial pericardial effusion noted. There is no significant valvular heart disease. Electronically signed by: Davie Hoyos on Reading Physician:03/22/2016 09:49 AM . Assessment & Plan Feliberto Concepcion is a 30 year old male with past medical history significant for proximal renal tubular acidosis and depression who presents with chest pain, malaise, and generalized body aches. Admitted for severe hypokalemia. Hospital day 4. 1. Severe Hypokalemia, present on admission. Active. - Etiology secondary to renal tubular acidosis and medication noncompliance. - On admission potassium 1.5 and magnesium 2.4. - U waves present on initial EKG. - Potassium this morning 2.6. - Spironolactone 25 mg daily discontinued. - Amiloride increased to 15 mg BID. - Continuing aggressive potassium replacement. - Monitor on telemetry. - Nephrology following. Appreciate time and expertise. 2. Proximal renal tubular acidosis, present on admission. Active. - Patient was followed by Dr. Auguste, nephrology, but has not been seen in approximately year and is noncompliant with medications over the last 12 months. - Patient states she was supposed to be taking potassium and magnesium supplements along with spironolactone and propranolol. - Patient will need to be restarted on home medication regimen that he can be compliant with upon discharge. - Nephrology consulted. Appreciate time and expertise 3. Leukocytosis, present on admission. Active. - Prior records from [facility] show persistent leukocytosis of unknown etiology. Patient has never completed a workup due to noncompliance. - On admission WBC 29.4. Patient is hemoconcentrated at this time. - Procalcitonin 0.43. - Blood smear showed no schistocytes and path review pending. - Repeat labs and we will continue to monitor. - Will hold off empiric antibiotics. 3. Chest pain due to suspected demand ischemia , present on admission. Resolved. - Likely secondary to hypokalemia and demand ischemia. - Initial troponin elevated at 0.149. Troponins trending down. - EKG showed U-waves. - Metoprolol 12.5 mg twice a day.c/w ASA - Chest x-ray showed no acute cardiopulmonary process. - Echocardiogram unremarkable. Results above. - Electrolyte management as above. 5. Elevated lactic acid, present on admission. Resolved. - Lactic acid of 3.0. Normalized. 6. Concern for suicidal thoughts, present on admission. Active. - Patient states he is fine with dying but has no active thoughts or plans. He has been noncompliant with medications but no other attempts at suicide. - We will medically stabilized patient initially and then consider psychiatric evaluation. - Denies suicidal ideation currently. 7. Depression, present on admission. Chronic. - Patient states he was seen [facility] but has not followed up with them in over a year. - He has not taken his medications in over a year. - Medications included BuSpar, Celexa, and trazodone. - Citalopram 20 mg daily restarted. 8. Tobacco use, present on admission. Active. - Nicotine patch 21 mg daily. 9. Hypovolemic hyponatremia, present on admission. Resolved. - Patient states he has had poor by mouth intake. - CBC appears hemoconcentrated. - Continue monitor. 10. Acute kidney injury, present on admission. Improving. - Prerenal. - Treatment as above. 11. Diarrhea, not present on admission. Improving. - Likely secondary to large amounts of electrolyte replacement. - Imodium Q6H PRN. 12.Transaminitis -persistent since admission -due to fatty liver disease -continue to monitor Disposition: Discharge pending potassium and electrolyte replacement. GI Prophylaxis: Not indicated VTE Prophylaxis: Sub-Q Enoxaparin VTE Mechanical Devices: Intermittant Pneumatic CD Resuscitation Status: CPR: Attempt Resuscitation Attending Statement patient seen and examined with Dr Mays .I agree with the history,exam, impression and plan as outlined above GABO MAYS DO Mar 24, 2016 14:36 Duane Mata MD Mar 24, 2016 14:47
[2016-03-24 15:42] VITALS: BP 116/73; PULSE 100; RESP 20; O2SAT 98
--- NOTE | 2016-03-24 17:40 | NUR ---
Social Work: Continued Discharge Planning D: Pt discussed in am rounds. Pt has been refusing care during admission. Per nephrology resident, pt had expressed suicidal ideation with attempts to leave AMA. MD is requested a 72 hour hold for the pt. [employer] staffed situation with counseling case manager who states that if the pt is refusing care and attempting to leave AMA with active suicidal ideation, a DMHP can be dispatched if the pt's medical conditions are not impeding/influencing his cognitive/mental health decision making. Pt has not reported suicidal ideation to senior staff psychologist. [employer] met with pt at bedside to discuss current thoughts of suicide and leaving AMA. Pt resting comfortably in bed and very hard to rouse. Pt engaged with [employer] with only one word responses. Pt showing no overt signs that he intends to leave AMA and states to [employer] that he is not having suicidal ideations. Pt would not engage further with [employer] but agreed that he would stay until medically stable. [employer] updated nephrology MD to notify that pt is not endorsing current SI. She has also consulted with psychiatry who states they will see the pt during admission. A: Pt who is I at baseline and is homeless. P: [employer] to continue to follow. Pt not currently endorsing SI however will be evaluated by psychiatry. [employer] to follow up with psych recommendations for pt. and follow up with pt. on safety/discharge planning FLASH Orosco
--- NOTE | 2016-03-24 18:46 | NUR ---
Behavior Patient continued to refuse care and meds today. Patient was behaving in a childish manner: If I am not going to have anything more to drink I do not want to take my pill. Patient remained on PO fluid restriction of 1500ml in 24h and by 1700 he already had 1450ml for the day. Patient was remained that for the night he can only have 50ml total and trough out the day patient was asked to restrained himself from drinking too much at one time. For example for lunch patient ordered two cartons of milk and drank both in quick succession, following that patient was asking for additional fluids. Several times during the shift the reasons for PO fluid restrictions were explained to the patient and to patients mother by nursing and medical staff. When told that he cannot have any more liquids PO for the time patient refused to talk or answer questions regarding his care. Patient soiled his linens while urinating and some loose stool was also smeared on the sheets -patient refused to be touch or for anyone to change his linens. Patient would say in an angry voice: do not touch me! as he was holding on to his linens and bed covers. IV pumps were alarming frequently because patient was occluding flow. He was repeatedly placing his arm above or behind his head which resulted in occlusion alarms starting. Patient was also kinking the tubing by folding it and pressing with his arm to stop the flow. Patient was asked by staff and his mother to stop this activity- consulted with MD regarding patients behavior. Patient has stated that he wanted to leave the hospital AMA because he was fed up with his treatment. Patient cannot leave the hospital until he medically clear and has psychiatric evaluation per attending hospitalist statement. This evening as a telemetry patient was offered a shower and he agreed to that. His linens were change while he was showering and the patient did not object to that at the time. However after returning to bed patient continued this behavior as described above. During the shift patient was treated for agitation/anxiety with Ativan IV with varied results. Patient continued to complain of chronic myalgia pain- consulted with MD and MD resumed morphine IV as means of reliving pain/discomfort- dose was given this evening- continue assessment/monitoring.
--- NOTE | 2016-03-24 19:01 | CONS ---
[address] [address] CONSULTATION REPORT PATIENT: LEI OCHOA : 1985 MR#: [id number] ADMIT: 03/21/2016 JOB ID: [id number] DATE OF SERVICE: 03/24/2016 INITIAL PSYCHIATRIC CONSULTATION: IDENTIFYING DATA: The patient is a 30-year-old male with a history of proximal renal tubular acidosis type 2 with associated hypokalemia who presented to the [facility] Emergency Department with severe hypokalemia. The patient was referred due to the initial report of depression and suicidal ideation. REFERRED BY: Dr. Aguirre with nephrology. CHIEF COMPLAINT: "I have a little depression." HISTORY OF PRESENT ILLNESS: The patient was admitted to the hospital and initially reported suicidal ideation according to the records, but this appears to have been passive in nature, with medication nonadherence as the mode of action. He also has a reported history of depression and had been seen by [facility] but had not followed up with them in over a year. The patient was essentially noncompliant with the interview and closed his eyes although was awake and declined to proceed with the interview. He would not answer whether he were having suicidal or homicidal thoughts, but did deny anxiety attacks and reported his sleep and appetite were "so-so." The patient's urine tox screen was positive for marijuana and opiates on intake and that during a previous admission in 2012 he had reported to the psychiatrist that he used spice on a daily basis and had used meth intravenously. Current use is unknown, although obviously positive for marijuana and opiates. PAST PSYCHIATRIC HISTORY: Inpatient: Unknown. Outpatient: Most recently at [facility]. MEDICATIONS: Most recently received citalopram 20 mg daily, buspirone 10 mg twice daily, and trazodone 100 mg at bedtime. Suicide attempt history is unknown but he did report passive suicidal ideation around his medication. PAST MEDICAL HISTORY: Severe hypokalemia, proximal renal tubular acidosis, leukocytosis, chest pain due to suspected demand ischemia, elevated lactic acid, tobacco use, hypovolemic hyponatremia, acute kidney injury, diarrhea, and transaminitis. CURRENT MEDICATIONS: 1. Lorazepam 0.5 mg q.4 h. p.r.n. anxiety or agitation. 2. Citalopram 20 mg p.o. daily. 3. Potassium chloride 1000 mL 75 mL/hour. 4. Enoxaparin 40 mg daily. 5. Metoprolol 12.5 mg twice daily. 6. Aspirin 81 mg daily. 7. Loperamide 2 mg q.6 h. p.r.n. 8. Nicotine 21 mg patch. 9. Ondansetron 4-8 mg q.4 h. p.r.n. 10. MiraLAX 17 g daily p.r.n. 11. Senna two tablets twice daily p.r.n. ALLERGIES: No known drug allergies. LABORATORY FINDINGS: Labs from March 24, 2016: WBC of 18.8, MCV of 80.6, MCH of 38.1, RDW 15.9. Potassium 2.5, carbon dioxide 16, calcium 8.2. AST of 91, ALT of 57. Urine random total protein 142. Brain CT from February 14, 2013 showed no acute intracranial findings. MEDICATION ALLERGIES: No known drug allergies. SUBSTANCE USE AND ALCOHOL HISTORY: The patient has a history of smoking spice in the past and IV methamphetamine use. The patient's urine tox screen was positive for marijuana and opiates. MENTAL STATUS EXAMINATION: Appearance: The patient is a well-nourished male appearing stated age, wearing a hospital issued gown, lying in bed. Behavior: The patient makes eye contact for the first few minutes of the interview then closes his eyes, fluttering them during the remainder of the interview. Mood: "A little depressed." Affect: Restricted. Speech: Minimal. Soft tone, low volume. Content of thought: Denies anxiety and reports depression. Would not answer other questions. According to documents had denied suicidality, but this cannot be confirmed. Thought processes: Poverty of speech. Difficult to assess. Insight and judgment: Difficult to assess. Memory and concentration: Unable to assess. Intelligence: Unable to assess. Orientation: Unable to assess. Sensorium: The patient was alert and did not appear to be suffering from a dementia, but delirium could not be ruled out. IMPRESSION: The patient is a 30-year-old male with a history of depression who was admitted due to hypokalemia related to his proximal renal tubular acidosis. The patient is only minimally cooperative with the evaluation. He has been restarted on citalopram. Given the context of repeated episodes of depression, restarting citalopram is reasonable; however, there is hyponatremia associated with the SSRIs and if this is a concern Psychiatry should be reconsulted for suggested alternate medications. PROVISIONAL DIAGNOSES: [place] I: 1. Major depression, recurrent by history. 2. Substance use disorder by history, with marijuana, spice, and methamphetamine. Current use of marijuana and opiates. [place] II: Deferred. Pear[place] III: See past medical history. [place] IV: Unknown. [place] V: Global Assessment of Functionin. PLAN: 1. Would continue with citalopram 20 mg daily. 2. Social work should work on reconnecting the patient with [facility] for outpatient treatment. 3. Should anxiety become prominent, restarting buspirone would not be unreasonable. 4. Given his substance use history avoiding lorazepam while where possible would be ideal, although may not be practical in the current situation; 0.5 mg seems an appropriate dose in this circumstance. 5. Please feel free to contact Psychiatry when the patient is more cooperative and we will be happy to see him for followup. 6. Social work should assess the patient at the time of discharge to determine whether the [facility] should be contacted regarding ongoing suicidality. ELIZABETHD
[2016-03-24 20:43] VITALS: BP 102/71; PULSE 91; RESP 16; O2SAT 98
[2016-03-25] VITALS (8 sets, daily range): BP systolic 91–107; BP diastolic 56–71; PULSE 74–98; RESP 16–20; O2SAT 97–98
[2016-03-25] MEDS ORDERED: KCl 40 mEq/100 mL (CENTRAL) 40 MEQ in IV Premix 1 EACH IV ONE (00:25)
[2016-03-25] MEDS: 0.9% NaCl + KCl 20 mEq/L 1,000 ML IV SCH ×2 (01:15→15:57)
[2016-03-25 01:27] LABS: Hepatitis A Antibody IgM Negative (Negative); Hepatitis B Core Antibody IgM Negative (Negative)
--- NOTE | 2016-03-25 01:29 | NUR ---
Fluid Restriction/Diet/Behavior Pt had ordered fluids with his dinner tray and the fluid restriction was discussed. Pt was told that he only had 50cc of PO fluids left until tomorrow morning and that if he wanted more fluids that he could sign a waiver that says he is aware of the fluid restriction and refuses to follow it. Pt refused to sign the waiver and then proceeded to gulp the fluids that were on his dinner tray and move the fluids away from me when I tried to remove them from the pt's room to assist the pt in keeping to the 1500cc fluid restriction. In order to assist the pt with his 1500cc fluid restriction it is recommended that the pt have a host assist in ordering all future meals and that the tray be left outside of the pt's room so that fluids can be monitored more stringently. Pt refuses to speak most of the time and instead closes his eyes, shakes his head, and grits his teeth. Pt did c/o chest pain and an EKG was ordered but then the pt said that his chest no longer hurt him so the EKG was cancelled.
[2016-03-25 05:31] LABS: BASOPHILS % (AUTO) 0.4 % (0-3); MONOCYTES % (AUTO) 6.4 % (4-12); Mean Corpuscular Hemoglobin 29.9 pg (27.0-35.0); Mean Corpuscular Volume 82.1 fL (81-100); NEUTROPHILS % (AUTO) 69.2 % (40-74); Platelet Count 337 bil/L (150-400)
[2016-03-25 05:58] LABS: Magnesium 1.9 mg/dL (1.6-2.6); Phosphorus 2.8 mg/dL (2.5-4.9)
--- NOTE | 2016-03-25 06:21 | NUR ---
Critical Lab Value: Potassium Lab called with critical lab value: Potassium of 2.7 at 0600 and MD was paged at 0615 with the results. called and said they were placing an order for more potassium to be hung. Pt still has a 40mEq KCl rider hanging at 25ml/hr.
[2016-03-25] MEDS ORDERED: Potassium Phos (mEq) Inj 40 MEQ in Dextrose 5% 500 ML IV ONE (08:05)
--- NOTE | 2016-03-25 09:32 | PCM.PNMED ---
Subjective Date of Service Mar 25, 2016 Subjective Feliberto Concepcion is a 30 year old male with past medical history significant for proximal renal tubular acidosis and depression who presents with chest pain, malaise, and generalized body aches. Admitted for severe hypokalemia. Hospital day 5. Overnight: Patient complained of chest pain then reversed statement and said he had no chest pain. EKG was cancelled. Patient rested comfortably the rest of the night. Today: Patient is lying in bed and sleeping. Wakes to voice. Denies any chest pain, shortness breath, palpitations. States nausea and vomiting has resolved. Discussed that he needs to get out of bed and walks today. Patient reluctantly agrees. Remaining review of systems negative. Exam Vital Signs Vital Sign - Last Date Time Temp Pulse Resp B/P Pulse Ox O2 Delivery O2 Flow Rate FiO2 03/25/16 05:37 90 03/25/16 05:11 16 107/70 98 Room Air 03/24/16 20:43 36.9 03/23/16 07:33 2.00 Intake and Output 03/24/16 03/24/16 03/25/16 Cumulative From/Thru 15:00 23:00 07:00 03/21/16 11:01 - 03/25/16 05:54 Intake Total 3155 ml 1876 ml 94583 ml Output Total 3050 ml 2400 ml 85366 ml Balance 105 ml -524 ml 2490 ml Intake Oral 1450 ml 800 ml 8310 ml IV Total 1705 ml 1076 ml 24019 ml Output Urine Total 2500 ml 1550 ml 22683 ml Stool Total 550 ml 850 ml 1400 ml Urine/Stool Mix 6400 ml Emesis 1300 ml # Voids 3 4 # Bowel Movements 8 Exam General: No acute distress, well-developed, well-nourished, poor hygiene HEENT: Normocephalic, atraumatic. External ears without defect. Pupils equal, round, and reactive to light and accommodation. Anicteric sclerae, moist conjunctivae, and no lid lag. Oropharynx free of erythema and cobble stoning. Mucous membranes moist. Neck: Supple with full range of motion. No jugular venous distension. No bruits. No lymphadenopathy or thyromegaly. Cardiovascular: Regular rate and rhythm with no murmurs, rubs, or gallops appreciated Pulmonary: Clear to auscultation bilaterally with no crackles, wheezes, or rhonchi. Normal respiratory effort with no use of accessory muscles. Abdomen: Bowel tones present. Soft, diffuse tenderness, nondistended. No hepatosplenomegaly or masses appreciated. Extremities: No clubbing, cyanosis, edema, or lymphadenopathy appreciated. Skin: Normal temperature, turgor, and texture; no rash, ulcers, or subcutaneous nodules appreciated. Neurological: Cranial nerves grossly intact. Normal muscle strength, tone, and bulk. Reflexes, coordination, and sensory function within normal limits. No known gait impairment. Psychiatric: Alert and oriented to person, place, and time. Lines: Right PICC line. Bilaterally peripherals. Lab and Diagnostics Result Diagram: 03/25/16 0500 03/25/16 0500 Microbiology MRSA screen negative. Influenza screen negative. Respiratory viral PCR negative. . X-Rays, CTs and MRIs X-RAY CHEST ONE VIEW IMPRESSION: Left basilar atelectasis/infiltrate, correlate clinically for pneumonia. Dictated by: Luis Domínguez M.D. on 03/21/2016 at 13:47 Approved by: Luis Domínguez M.D. on 03/21/2016 at 13:48 . 12-lead ECG EKG: Sinus rhythm, heart rate 61, normal axis, prolonged [place] interval and QT interval, 2-1 AV block, ST elevation greater than 2 mm in anterior leads, u waves. . Echocardiogram Report Interpretation Summary The ejection fraction is estimated to be 65-70%. There is a trivial pericardial effusion noted. There is no significant valvular heart disease. Electronically signed by: Davie Hoyos on Reading Physician:03/22/2016 09:49 AM . 12-lead ECG EKG: Sinus rhythm, heart rate 61, normal axis, prolonged [place] interval and QT interval, 2-1 AV block, ST elevation greater than 2 mm in anterior leads, u waves. . Cardiac Echo Impressions Echocardiogram Report Interpretation Summary The ejection fraction is estimated to be 65-70%. There is a trivial pericardial effusion noted. There is no significant valvular heart disease. Electronically signed by: Davie Hoyos on Reading Physician:03/22/2016 09:49 AM . Additional Diagnostics US ABDOMEN IMPRESSION: Increased hepatic echogenicity noted likely related to fatty infiltration of the liver but other sources of hepatocellular disease cannot be excluded. Recommend clinical correlation. Dictated by: Justin Briceno [facility] Interpreted: Kayy Montelongo MD on 03/24/2016 at 10:31 Transcribed by: ALLISON on 03/24/2016 at 10:32 Approved by: Kayy Montelongo MD, PhD on 03/24/2016 at 16:47 Assessment & Plan Feliberto Concepcion is a 30 year old male with past medical history significant for proximal renal tubular acidosis and depression who presents with chest pain, malaise, and generalized body aches. Admitted for severe hypokalemia. Hospital day 5. 1. Severe Hypokalemia, present on admission. Active. - Etiology secondary to renal tubular acidosis and medication noncompliance. - On admission potassium 1.5 and magnesium 2.4. - U waves present on initial EKG. - Potassium this morning 2.7. - Spironolactone 25 mg daily discontinued. - Amiloride increased to 15 mg BID. nephrology planning to increase further to 20 bid - Continuing aggressive potassium replacement. - Monitor on telemetry. - Nephrology following. Appreciate time and expertise. 2. Proximal renal tubular acidosis, present on admission. Active. - Patient was followed by Dr. Auguste, nephrology, but has not been seen in approximately year and is noncompliant with medications over the last 12 months. - Patient states she was supposed to be taking potassium and magnesium supplements along with spironolactone and propranolol. - Patient will need to be restarted on home medication regimen that he can be compliant with upon discharge. - Nephrology consulted. Appreciate time and expertise -acidosis improving 3. Leukocytosis, present on admission. Active. - Prior records from [facility] show persistent leukocytosis of unknown etiology. Patient has never completed a workup due to noncompliance. - On admission WBC 29.4. White blood cell count currently 16.4. - Procalcitonin 0.43. - Blood smear showed no schistocytes and path review pending. - Repeat labs and we will continue to monitor. - Will hold off empiric antibiotics. 3. Chest pain due to suspected demand ischemia , present on admission. Resolved. - Likely secondary to hypokalemia and demand ischemia. - Initial troponin elevated at 0.149. Troponins trended down. - EKG showed U-waves. - Metoprolol 12.5 mg twice a day. - Aspirin 81 mg daily. - Chest x-ray showed no acute cardiopulmonary process. - Echocardiogram unremarkable. Results above. - Electrolyte management as above. 5. Elevated lactic acid, present on admission. Resolved. - Lactic acid of 3.0. Normalized. 6. Concern for suicidal thoughts, present on admission. Active. - Patient states he is fine with dying but has no active thoughts or plans. He has been noncompliant with medications but no other attempts at suicide. - We will medically stabilized patient initially and then consider psychiatric evaluation. - Denies suicidal ideation currently. 7. Depression, present on admission. Chronic. - Patient states he was seen at [facility] but has not followed up with them in over a year. - He has not taken his medications in over a year. - Medications included BuSpar, Celexa, and trazodone. - Citalopram 20 mg daily restarted. Patient refused yesterday we will attempt again today. - Psychiatry consulted. Appreciate recommendations. 8. Tobacco use, present on admission. Active. - Nicotine patch 21 mg daily. 9. Hypovolemic hyponatremia, present on admission. Resolved. - Patient states he has had poor by mouth intake. - CBC appears hemoconcentrated. - Continue monitor. 10. Acute kidney injury, present on admission. Improving. - Prerenal. - Treatment as above. 11. Diarrhea, not present on admission. Resolved. - Likely secondary to large amounts of electrolyte replacement. - Imodium Q6H PRN. 12.Transaminitis, present on admission. Active. - Persistent since admission. - Due to fatty liver disease. - Hepatitis panel negative. - Continue to monitor Disposition: Discharge pending potassium and electrolyte replacement. GI Prophylaxis: Not indicated VTE Prophylaxis: Sub-Q Enoxaparin VTE Mechanical Devices: Intermittant Pneumatic CD Resuscitation Status: CPR: Attempt Resuscitation Attending Statement patient seen and examined with Dr Mays .I agree with the history,exam, impression and plan as outlined above GABO MAYS DO Mar 25, 2016 06:37 Duane Mata MD Mar 25, 2016 12:27
[2016-03-25] MEDS: KCl 40 mEq/100 mL (CENTRAL) 40 MEQ in IV Premix 1 EACH IV SCH ×2 (10:23→15:58)
--- NOTE | 2016-03-25 10:39 | NUR ---
Pain pt moaning, grinding teeth, restless, c/o generalized pain of 7/10. prn morphine 2mg given per md order. follow up pain rating 4/10, pt appears calmer. will continue to monitor.
--- NOTE | 2016-03-25 11:23 | PCM.PNMED ---
Subjective Date of Service Mar 25, 2016 Subjective Nephrology Progress Note: Attending Dr. Timothy Nyeemir is a 30-year-old male with a past medical history significant for proximal renal tubular acidosis type II with associated hypokalemia who presents [facility] emergency department with complaints of nausea, vomiting, generalized weakness, myalgias and chest pain who is now being treated for severe hypokalemia secondary to proximal renal tubular acidosis type II. Hospital day #3. Overnight: There were no acute events. Telemetry overnight: Sinus rhythm, heart rate 80 to 90s, without ectopy. The patient is resting in bed comfortably and in no acute distress. The patient continues to be reluctant to talk to us. He denies chest pain, shortness of breath, abdominal pain, nausea, vomiting, diarrhea. He is voiding and eliminating without difficulty. . Exam Vital Signs Vital Sign - Last Date Time Temp Pulse Resp B/P Pulse Ox O2 Delivery O2 Flow Rate FiO2 03/25/16 10:13 96 03/25/16 09:54 36.5 20 106/71 98 Room Air 03/23/16 07:33 2.00 Intake and Output 03/24/16 03/24/16 03/25/16 Cumulative From/Thru 15:00 23:00 07:00 03/21/16 11:01 - 03/25/16 05:54 Intake Total 3155 ml 1876 ml 19913 ml Output Total 3050 ml 2400 ml 46611 ml Balance 105 ml -524 ml 2490 ml Intake Oral 1450 ml 800 ml 8310 ml IV Total 1705 ml 1076 ml 66122 ml Output Urine Total 2500 ml 1550 ml 34342 ml Stool Total 550 ml 850 ml 1400 ml Urine/Stool Mix 6400 ml Emesis 1300 ml # Voids 3 4 # Bowel Movements 8 Exam General: Young gentleman lying in bed and in no acute distress, well-developed, well-nourished, appropriately interactive. HEENT: Normocephalic, atraumatic. External ears without defect. Pupils equal, round, and reactive to light. No band keratopathy. Anicteric sclerae, moist conjunctivae, and no lid lag. Oropharynx free of erythema and cobble stoning with moist mucosa. Neck: Supple with full range of motion. No lymphadenopathy or thyromegaly. Cardiovascular: Regular rate and rhythm with no murmurs, rubs, or gallops appreciated Pulmonary: Clear to auscultation bilaterally with no crackles, wheezes, or rhonchi. Normal respiratory effort with no use of accessory muscles. Abdomen: Soft, nontender, nondistended, bowel sounds present. No hepatosplenomegaly or masses appreciated. Extremities: No clubbing, cyanosis, or edema. Skin: Normal temperature, turgor, and texture; no rash, ulcers, or subcutaneous nodules appreciated. Neurological: Cranial nerves grossly intact. Psychiatric: Flat affect. Depressed mood. . IVs and Medications Medications Reviewed: Medications were reviewed in detail Lab and Diagnostics Item Value Date Time Calcium Level 8.9 mg/dL 03/25/16 0500 Phosphorus Level 2.8 mg/dL 03/25/16 0500 Magnesium Level 1.9 mg/dL 03/25/16 0500 Total Bilirubin 0.3 mg/dL 03/25/16 0500 Aspartate Amino Transf (AST/SGOT) 95 U/L H 03/25/16 0500 Alanine Aminotransferase (ALT/SGPT) 62 U/L H 03/25/16 0500 Alkaline Phosphatase 111 U/L 03/25/16 0500 Total Protein 7.0 g/dL 03/25/16 0500 Albumin 4.0 g/dL 03/25/16 0500 Result Diagram: 03/25/16 0500 03/25/16 0500 Microbiology MRSA screen negative. Influenza screen negative. Respiratory viral PCR negative. . X-Rays, CTs and MRIs X-RAY CHEST ONE VIEW IMPRESSION: Left basilar atelectasis/infiltrate, correlate clinically for pneumonia. Dictated by: Luis Domínguez M.D. on 03/21/2016 at 13:47 Approved by: Luis Domínguez M.D. on 03/21/2016 at 13:48 . 12-lead ECG EKG: Sinus rhythm, heart rate 61, normal axis, prolonged [place] interval and QT interval, 2-1 AV block, ST elevation greater than 2 mm in anterior leads, u waves. . Echocardiogram Report Interpretation Summary The ejection fraction is estimated to be 65-70%. There is a trivial pericardial effusion noted. There is no significant valvular heart disease. Electronically signed by: Davie Hoyos on Reading Physician:03/22/2016 09:49 AM . 12-lead ECG EKG: Sinus rhythm, heart rate 61, normal axis, prolonged [place] interval and QT interval, 2-1 AV block, ST elevation greater than 2 mm in anterior leads, u waves. . Cardiac Echo Impressions Echocardiogram Report Interpretation Summary The ejection fraction is estimated to be 65-70%. There is a trivial pericardial effusion noted. There is no significant valvular heart disease. Electronically signed by: Davie Hoyos on Reading Physician:03/22/2016 09:49 AM . Additional Diagnostics US ABDOMEN IMPRESSION: Increased hepatic echogenicity noted likely related to fatty infiltration of the liver but other sources of hepatocellular disease cannot be excluded. Recommend clinical correlation. Dictated by: Justin Briceno RRA Interpreted: Kayy Montelongo MD on 03/24/2016 at 10:31 Transcribed by: ALLISON on 03/24/2016 at 10:32 Approved by: Kayy Montelongo MD, PhD on 03/24/2016 at 16:47 Assessment & Plan Feliberto Concepcion is a 30-year-old male with a past medical history significant for proximal renal tubular acidosis type II with associated hypokalemia who presents [facility] emergency department with complaints of nausea, vomiting, generalized weakness, myalgias and chest pain who is now being treated for severe hypokalemia secondary to proximal renal tubular acidosis type II. Hospital day #3. 1. Proximal renal tubular acidosis type II. 2. Mixed anion gap metabolic acidosis secondary to lactic acidosis and non- anion gap metabolic acidosis secondary to proximal RTA type II. 3. Elevated troponin. 4. Mild acute kidney injury multifactorial and secondary to prerenal azotemia ( hypovolemia) and proximal RTA type II. 5. Nephrotic syndrome. 6. Suicidal ideation. 7. 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 8. Anxiety. 9. Medication non-compliance. 10. Proteinuria. 11. Mild transaminitis. Recommendations: The patient presented with severe hypokalemia secondary to proximal renal tubular acidosis type II. He likely has a genetic component as he has a biological sister who has similar symptoms and has been diagnosed with Gittelman 's which is conversely likely RTA as well. He may need a genetic workup in the future. He will need aggressive fluid resuscitation, as well as, potassium repletion. Recommend avoiding sodium as this will only cause him to excrete and lose more potassium. Also recommend avoiding sodium bicarbonate as this will increase filtration of sodium bicarbonate above the reabsorption capacity and a bicarbonate diuresis will ensue, as well as, enhanced potassium excretion. Will check other electrolytes including phosphate and uric acid as this may represent a Fanconi syndrome. In regards to his elevated troponin and lactic acidosis this is likely secondary to demand ischemia from severe hypokalemia. - Urine protein to creatinine ratio was 3.23 indicating nephrotic syndrome. Ordered workup for proteinuria including: ESR, and a with reflex, C3 and C4, ANCA panel, SPEP, UPEP - Order GGT to assess mild transaminitis. - Increase amiloride from 15 mg twice a day to 20 mg twice a day to block ENaC channel in DCT and consequently sodium reabsorption/potassium excretion. - Continue IV fluids with D5W 40 mEq KCl at a rate of 125 mL/hr. - Continue aggressive potassium repletion with a KCl 40 mEq IV 2 doses. We will repeat a potassium level 2 hours after complete. - Stopped spironolactone 25 mg daily as this has the same activity as amiloride with likely unnecessary side effects including hypotension.. - Continue to monitor magnesium and phosphate daily. - Continue 1500 mL fluid restriction. - Continue to monitor potassium level periodically throughout the next several days as we aggressively replete. - Renal function slowly improving and returning to baseline. Continue to monitor urine output and renal function daily. Avoid nephrotoxic agents . GI Prophylaxis: Not indicated VTE Prophylaxis: Sub-Q Enoxaparin VTE Mechanical Devices: Intermittant Pneumatic CD Resuscitation Status: CPR: Attempt Resuscitation Attending Statement Nephrology attending:. The patient was seen and examined along with the internal medicine resident whose note is detailed above. He has a significant amount of protein in his urine. I discussed the case with the internal medicine resident and I agree with her note and her plan to up workup for proteinuria Diya Chery DO Mar 25, 2016 11:23 Jose J Aguirre DO Mar 25, 2016 12:25
[2016-03-25 14:18] LABS: Phosphorus 3.1 mg/dL (2.5-4.9)
[2016-03-25] MEDS: oxyCODONE-Acetamin 5-325 mg Tablet PO PRN (16:28)
[2016-03-26] VITALS (10 sets, daily range): BP systolic 99–119; BP diastolic 65–79; PULSE 74–103; RESP 12–16; O2SAT 96–99
[2016-03-26] MEDS: 0.9% NaCl + KCl 20 mEq/L 1,000 ML IV SCH ×3 (05:24→21:22)
[2016-03-26 05:26] LABS: Magnesium 1.9 mg/dL (1.6-2.6); Phosphorus 3.3 mg/dL (2.5-4.9)
--- NOTE | 2016-03-26 07:31 | NUR ---
Chest Pain/AMA Pt c/o chest pain and not feeling right this AM and a 12-lead EKG was ordered. The EKG showed T abnormalities and the MD was made aware. Pt's AM labs came back and pt's K+ is 2.9. Pt is wanting to leave AMA and doesn't like the fluid restrictions put into place and says "that it is just not right for someone to let me feel so dehydrated." MD came into the pt's room and discussed why it is in the pt's best interest to stay and be compliant with medications and care both as inpatient and as outpatient.
[2016-03-26 08:07] LABS: Gamma Glutamyl Transpeptidase 42 IU/L (0-65)
[2016-03-26] MEDS: oxyCODONE-Acetamin 5-325 mg Tablet PO PRN ×2 (09:52→22:20)
--- NOTE | 2016-03-26 13:10 | PCM.PNMED ---
Subjective Date of Service Mar 26, 2016 Subjective The patient's potassium level slowly is improving. He remains profoundly depressed and minimally interactive. I explained to him about the desire to get a percutaneous renal biopsy to follow up on the protein in his urine and he states that he is going to think about it". Exam Vital Signs Vital Sign - Last Date Time Temp Pulse Resp B/P Pulse Ox O2 Delivery O2 Flow Rate FiO2 03/26/16 12:31 37.1 96 104/79 96 Room Air 03/26/16 07:59 12 03/23/16 07:33 2.00 Intake and Output 03/25/16 03/25/16 03/26/16 Cumulative From/Thru 15:00 23:00 07:00 03/21/16 11:01 - 03/26/16 06:31 Intake Total 2080 ml 1708 ml 66168 ml Output Total 2200 ml 900 ml 21451 ml Balance -120 ml 808 ml 3178 ml Intake Oral 940 ml 560 ml 9810 ml IV Total 1140 ml 1148 ml 77438 ml Output Urine Total 2200 ml 900 ml 34823 ml Stool Total 1400 ml Urine/Stool Mix 6400 ml Emesis 1300 ml # Voids 4 # Bowel Movements 2 10 Exam Neck is supple without adenopathy thyromegaly or venous distention. Lungs are clear. Heart is regular and rhythmical with a soft systolic murmur. Abdomen soft. Tenderness rebound guarding masses or hepatosplenomegaly. Extremities an attorney lawyer evidence of any clubbing cyanosis or edema. Lab and Diagnostics Result Diagram: 03/25/16 0500 03/26/16 0500 Microbiology MRSA screen negative. Influenza screen negative. Respiratory viral PCR negative. . X-Rays, CTs and MRIs X-RAY CHEST ONE VIEW IMPRESSION: Left basilar atelectasis/infiltrate, correlate clinically for pneumonia. Dictated by: Luis Domínguez M.D. on 03/21/2016 at 13:47 Approved by: Luis Domínguez M.D. on 03/21/2016 at 13:48 . 12-lead ECG EKG: Sinus rhythm, heart rate 61, normal axis, prolonged [place] interval and QT interval, 2-1 AV block, ST elevation greater than 2 mm in anterior leads, u waves. . Echocardiogram Report Interpretation Summary The ejection fraction is estimated to be 65-70%. There is a trivial pericardial effusion noted. There is no significant valvular heart disease. Electronically signed by: Davie Hoyos on Reading Physician:03/22/2016 09:49 AM . 12-lead ECG EKG: Sinus rhythm, heart rate 61, normal axis, prolonged [place] interval and QT interval, 2-1 AV block, ST elevation greater than 2 mm in anterior leads, u waves. . Cardiac Echo Impressions Echocardiogram Report Interpretation Summary The ejection fraction is estimated to be 65-70%. There is a trivial pericardial effusion noted. There is no significant valvular heart disease. Electronically signed by: Davie Hoyos on Reading Physician:03/22/2016 09:49 AM . Additional Diagnostics US ABDOMEN IMPRESSION: Increased hepatic echogenicity noted likely related to fatty infiltration of the liver but other sources of hepatocellular disease cannot be excluded. Recommend clinical correlation. Dictated by: Justin Briceno [facility] Interpreted: Kayy Montelongo MD on 03/24/2016 at 10:31 Transcribed by: ALLISON on 03/24/2016 at 10:32 Approved by: Kayy Montelongo MD, PhD on 03/24/2016 at 16:47 Assessment & Plan Impression #1 paroxysmal type II renal tubular acidosis with improving hypokalemia and Nephrotic Range Proteinuria Recommendation #1. Plan for percutaneous renal biopsy on Sunday. In the meantime I will check an INR, PTT and lipid profile. His other serologies are pending at time of this dictation. GI Prophylaxis: Not indicated VTE Prophylaxis: Sub-Q Enoxaparin VTE Mechanical Devices: Intermittant Pneumatic CD Resuscitation Status: CPR: Attempt Resuscitation Jose J Aguirre DO Mar 26, 2016 13:09
--- NOTE | 2016-03-26 13:26 | PCM.PNMED ---
Subjective Date of Service Mar 26, 2016 Subjective No new complaints or events. Potassium 2.9 today, sodium 132. We will continue to replace potassium. Nephrology planning to do kidney biopsy on Sunday due to proteinuria C Exam Vital Signs Vital Sign - Last Date Time Temp Pulse Resp B/P Pulse Ox O2 Delivery O2 Flow Rate FiO2 03/26/16 12:31 37.1 96 104/79 96 Room Air 03/26/16 07:59 12 03/23/16 07:33 2.00 Intake and Output 03/25/16 03/25/16 03/26/16 Cumulative From/Thru 15:00 23:00 07:00 03/21/16 11:01 - 03/26/16 06:31 Intake Total 2080 ml 1708 ml 79713 ml Output Total 2200 ml 900 ml 93712 ml Balance -120 ml 808 ml 3178 ml Intake Oral 940 ml 560 ml 9810 ml IV Total 1140 ml 1148 ml 05702 ml Output Urine Total 2200 ml 900 ml 17674 ml Stool Total 1400 ml Urine/Stool Mix 6400 ml Emesis 1300 ml # Voids 4 # Bowel Movements 2 10 Exam General: No acute distress, well-developed, well-nourished, poor hygiene HEENT: Normocephalic, atraumatic. External ears without defect. Pupils equal, round, and reactive to light and accommodation. Anicteric sclerae, moist conjunctivae, and no lid lag. Oropharynx free of erythema and cobble stoning. Mucous membranes moist. Neck: Supple with full range of motion. No jugular venous distension. No bruits. No lymphadenopathy or thyromegaly. Cardiovascular: Regular rate and rhythm with no murmurs, rubs, or gallops appreciated Pulmonary: Clear to auscultation bilaterally with no crackles, wheezes, or rhonchi. Normal respiratory effort with no use of accessory muscles. Abdomen: Bowel tones present. Soft, diffuse tenderness, nondistended. No hepatosplenomegaly or masses appreciated. Extremities: No clubbing, cyanosis, edema, or lymphadenopathy appreciated. Skin: Normal temperature, turgor, and texture; no rash, ulcers, or subcutaneous nodules appreciated. Neurological: Cranial nerves grossly intact. Normal muscle strength, tone, and bulk. Reflexes, coordination, and sensory function within normal limits. No known gait impairment. Psychiatric: Alert and oriented to person, place, and time. Lines: Right PICC line. Bilaterally peripherals. IVs and Medications Medications Reviewed: Medications were reviewed in detail Lab and Diagnostics Result Diagram: 03/25/16 0500 03/26/16 0500 Microbiology MRSA screen negative. Influenza screen negative. Respiratory viral PCR negative. . X-Rays, CTs and MRIs X-RAY CHEST ONE VIEW IMPRESSION: Left basilar atelectasis/infiltrate, correlate clinically for pneumonia. Dictated by: Luis Domínguez M.D. on 03/21/2016 at 13:47 Approved by: Luis Domínguez M.D. on 03/21/2016 at 13:48 . 12-lead ECG EKG: Sinus rhythm, heart rate 61, normal axis, prolonged NJ interval and QT interval, 2-1 AV block, ST elevation greater than 2 mm in anterior leads, u waves. . Echocardiogram Report Interpretation Summary The ejection fraction is estimated to be 65-70%. There is a trivial pericardial effusion noted. There is no significant valvular heart disease. Electronically signed by: Davie Hoyos on Reading Physician:03/22/2016 09:49 AM . 12-lead ECG EKG: Sinus rhythm, heart rate 61, normal axis, prolonged NJ interval and QT interval, 2-1 AV block, ST elevation greater than 2 mm in anterior leads, u waves. . Cardiac Echo Impressions Echocardiogram Report Interpretation Summary The ejection fraction is estimated to be 65-70%. There is a trivial pericardial effusion noted. There is no significant valvular heart disease. Electronically signed by: Davie Hoyos on Reading Physician:03/22/2016 09:49 AM . Additional Diagnostics US ABDOMEN IMPRESSION: Increased hepatic echogenicity noted likely related to fatty infiltration of the liver but other sources of hepatocellular disease cannot be excluded. Recommend clinical correlation. Dictated by: Justin Briceno [facility] Interpreted: Kayy Montelongo MD on 03/24/2016 at 10:31 Transcribed by: ALLISON on 03/24/2016 at 10:32 Approved by: Kayy Montelongo MD, PhD on 03/24/2016 at 16:47 Assessment & Plan Feliberto Concepcion is a 30 year old male with past medical history significant for proximal renal tubular acidosis and depression who presents with chest pain, malaise, and generalized body aches. Admitted for severe hypokalemia. Hospital day 5. 1. Severe Hypokalemia, present on admission. Active. - Etiology secondary to renal tubular acidosis and medication noncompliance. - On admission potassium 1.5 and magnesium 2.4. - U waves present on initial EKG. - Potassium this morning 2.9. - Spironolactone 25 mg daily discontinued. - Amiloride increased to 15 mg BID. nephrology planning to increase further to 20 bid - Continuing aggressive potassium replacement. - Monitor on telemetry. - Nephrology following. Appreciate time and expertise. 2. Proximal renal tubular acidosis, present on admission. Active. - Patient was followed by Dr. Auguste, nephrology, but has not been seen in approximately year and is noncompliant with medications over the last 12 months. - Patient states she was supposed to be taking potassium and magnesium supplements along with spironolactone and propranolol. - Reinforced the need to be compliant with upon discharge. - Nephrology consulted. Appreciate time and expertise -acidosis improving 3. Proteinuria, acute,poa -Random urine creatinine to protein ratio pending -Nephrology planning to do renal biopsy on Sunday 4. Chest pain due to suspected demand ischemia , present on admission. Resolved. - Likely secondary to hypokalemia and demand ischemia. - Initial troponin elevated at 0.149. Troponins trended down. - EKG showed U-waves. - Metoprolol 12.5 mg twice a day. - Aspirin 81 mg daily. - Chest x-ray showed no acute cardiopulmonary process. - Echocardiogram unremarkable. Results above. - Electrolyte management as above. 5. Elevated lactic acid, present on admission. Resolved. - Lactic acid of 3.0. Normalized. 6. Concern for suicidal thoughts, present on admission. Active. - Patient states he is fine with dying but has no active thoughts or plans. He has been noncompliant with medications but no other attempts at suicide. - We will medically stabilized patient initially and then consider psychiatric evaluation. - Denies suicidal ideation currently. 7. Depression, present on admission. Chronic. - Patient states he was [facility] but has not followed up with them in over a year. - He has not taken his medications in over a year. - Medications included BuSpar, Celexa, and trazodone. - Citalopram 20 mg daily restarted. - Psychiatry consulted. Appreciate recommendations. 8. Tobacco use, present on admission. Active. - Nicotine patch 21 mg daily. 9. Hypovolemic hyponatremia, present on admission. Resolved. - Patient states he has had poor by mouth intake. - CBC appears hemoconcentrated. - Continue monitor. 10. Acute kidney injury, present on admission. Improving. - Prerenal. - Treatment as above. 11. Diarrhea, not present on admission. Resolved. - Likely secondary to large amounts of electrolyte replacement. - Imodium Q6H PRN. 12.Transaminitis, present on admission. Active. - Persistent since admission. - Due to fatty liver disease. - Hepatitis panel negative. - Continue to monitor 13. Leukocytosis, present on admission. Active. - Prior records from [facility] show persistent leukocytosis of unknown etiology. Patient has never completed a workup due to noncompliance. - On admission WBC 29.4. White blood cell count currently 16.4. - Procalcitonin 0.43. - Blood smear showed no schistocytes and path review pending. - Repeat labs and we will continue to monitor. - Will hold off empiric antibiotics. Disposition: Discharge pending potassium and electrolyte replacement. And workup of proteinuria GI Prophylaxis: Not indicated VTE Prophylaxis: Sub-Q Enoxaparin VTE Mechanical Devices: Intermittant Pneumatic CD Resuscitation Status: CPR: Attempt Resuscitation Duane Mata MD Mar 26, 2016 13:26
[2016-03-26 15:34] LABS: Magnesium 2.2 mg/dL (1.6-2.6)
--- NOTE | 2016-03-26 19:58 | NUR ---
SOB/Chest pressure Pt reported SOB late this am, Pt encouraged to reposition in the bed and do deep breathing/coughing exercises, Pt reported breathing improved, Pt encouraged to continue these interventions throughout the day. power lineman technician called and Pt had brief run of PSVT in the 150s/160s this afternoon. Pt also reporting lightheadedness when getting up to BSC and reported chest pressure had returned, paged BMP and Mg2+ labs ordered, labs all returned WNL, Pt's symptoms also resolved without intervention, made aware.
[2016-03-27] VITALS (7 sets, daily range): BP systolic 98–123; BP diastolic 57–83; PULSE 77–106; RESP 15–20; O2SAT 95–98
--- NOTE | 2016-03-27 05:14 | NUR ---
Anxiety/Pain/Fluid Restriction Pt had some anxiety and generalized pain 5/10 at HS and was given PO pain medication and IV Ativan. The medication helped the pt to get some rest. Pt has been compliant with the fluid restriction of 1500cc/day.
[2016-03-27 07:17] LABS: Magnesium 2.1 mg/dL (1.6-2.6); Phosphorus 3.4 mg/dL (2.5-4.9)
[2016-03-27] MEDS: oxyCODONE-Acetamin 5-325 mg Tablet PO PRN ×3 (07:36→20:03)
[2016-03-27 10:30] LABS: Mean Corpuscular Hemoglobin 29.9 pg (27.0-35.0); Mean Corpuscular Volume 84.6 fL (81-100); Platelet Count 372 bil/L (150-400)
[2016-03-27 11:10] LABS: EOSINOPHILS % (AUTO) 1 % (0-5); MONOCYTES % (AUTO) 9 % (4-12); NEUTROPHILS % (AUTO) 60 % (40-74)
[2016-03-27 11:11] LABS: BASOPHILS % (AUTO) 1 % (0-3)
[2016-03-27] MEDS: 0.9% NaCl + KCl 20 mEq/L 1,000 ML IV SCH (12:35)
--- NOTE | 2016-03-27 12:50 | PCM.PNMED ---
Subjective Date of Service Mar 27, 2016 Subjective no acute issue overnight. stable BP. has flat affect, answered only yes and no questions. Exam Vital Signs Vital Sign - Last Date Time Temp Pulse Resp B/P Pulse Ox O2 Delivery O2 Flow Rate FiO2 03/27/16 12:22 36.7 98 18 111/72 97 Room Air 03/23/16 07:33 2.00 Intake and Output 03/26/16 03/26/16 03/27/16 Cumulative From/Thru 15:00 23:00 07:00 03/21/16 11:01 - 03/27/16 06:45 Intake Total 1511 ml 1664 ml 25088 ml Output Total 2250 ml 1525 ml 26632 ml Balance -739 ml 139 ml 2578 ml Intake Oral 540 ml 850 ml 10220 ml IV Total 971 ml 814 ml 66138 ml Output Urine Total 2250 ml 1525 ml 62355 ml Stool Total 1400 ml Urine/Stool Mix 6400 ml Emesis 1300 ml # Voids 4 # Bowel Movements 1 11 Exam General: AAOx3, NAD. HEENT: atraumatic. PERRLA, anicteric sclerae, moist mucous membrane. Neck: Supple with full range of motion. No lymphadenopathy or thyromegaly. Cardiovascular: Regular rate and rhythm with no murmurs, rubs, or gallops appreciated Pulmonary: Clear to auscultation bilaterally with no crackles, wheezes, or rhonchi. Normal respiratory effort with no use of accessory muscles. Abdomen: Soft, nontender, nondistended, bowel sounds present. No hepatosplenomegaly or masses appreciated. Extremities: No clubbing, cyanosis, or edema. Skin: Normal temperature, turgor, and texture; no rash, ulcers, or subcutaneous nodules appreciated. Psychiatric: Flat affect. Depressed mood. . Lab and Diagnostics Result Diagram: 03/27/1652603/27/16526 Microbiology MRSA screen negative. Influenza screen negative. Respiratory viral PCR negative. . X-Rays, CTs and MRIs X-RAY CHEST ONE VIEW IMPRESSION: Left basilar atelectasis/infiltrate, correlate clinically for pneumonia. Dictated by: Luis Domínguez M.D. on 03/21/2016 at 13:47 Approved by: Luis Domínguez M.D. on 03/21/2016 at 13:48 . 12-lead ECG EKG: Sinus rhythm, heart rate 61, normal axis, prolonged WA interval and QT interval, 2-1 AV block, ST elevation greater than 2 mm in anterior leads, u waves. . Echocardiogram Report Interpretation Summary The ejection fraction is estimated to be 65-70%. There is a trivial pericardial effusion noted. There is no significant valvular heart disease. Electronically signed by: Davie Hoyos on Reading Physician:03/22/2016 09:49 AM . 12-lead ECG EKG: Sinus rhythm, heart rate 61, normal axis, prolonged WA interval and QT interval, 2-1 AV block, ST elevation greater than 2 mm in anterior leads, u waves. . Cardiac Echo Impressions Echocardiogram Report Interpretation Summary The ejection fraction is estimated to be 65-70%. There is a trivial pericardial effusion noted. There is no significant valvular heart disease. Electronically signed by: Davie Hoyos on Reading Physician:03/22/2016 09:49 AM . Additional Diagnostics US ABDOMEN IMPRESSION: Increased hepatic echogenicity noted likely related to fatty infiltration of the liver but other sources of hepatocellular disease cannot be excluded. Recommend clinical correlation. Dictated by: Justin Briceno [facility] Interpreted: Kayy Montelongo MD on 03/24/2016 at 10:31 Transcribed by: ALLISON on 03/24/2016 at 10:32 Approved by: Kayy Montelongo MD, PhD on 03/24/2016 at 16:47 Assessment & Plan 1. Proximal renal tubular acidosis type II. - severe hypokalemia, metabolic acidosism hypophosphatemia. 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 2. Mixed anion gap metabolic acidosis secondary to lactic acidosis and non- anion gap metabolic acidosis secondary to proximal RTA type II. 3. ANN, resolved. 4. Nephrotic syndrome. 5. Transminitis with increased hepatic echogenicity. 6. 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 7. Anxiety. 8. Medication non-compliance. Plan: Check serum ceruloplasmin r/o Subhash disease. add K-citrate 20 meq TID. kidney biopsy in am. NPO AMN. GI Prophylaxis: Not indicated VTE Prophylaxis: Sub-Q Enoxaparin VTE Mechanical Devices: Intermittant Pneumatic CD Resuscitation Status: CPR: Attempt Resuscitation Eliana Snyder MD Mar 27, 2016 12:50
[2016-03-27] MEDS: Potassium Citrate ER 10 mEq ER24 Tablet PO SCH ×2 (15:10→18:04)
--- NOTE | 2016-03-27 15:23 | NUR ---
FLUID RESTRICTION/PAIN P-Patient on 1500ml fluid restriction and c/o generalized pain. I- At this point in shift patient has 1200 ml PO fluid in and nurse made patient aware of consumption. At 1200 patient given one Percocet for pain. E- Patient verbalized understanding of fluid remaining to be consumed, he will be NPO at midnight for u/s guided biopsy of kidney. Patient appears not pleased with fluid restriction. Patient states his pain is 3/10 and made aware that nest pain medication is due 1800. LABS= WBC 16.1, K+ 3.2 NEURO- Flat affect, LOC X3 CVS-SR 60-70'S PLUM- RA GI-Fluid restriction 1500ml general diet -Urinal SKIN- No issues PAIN- See above note IV-NS 20K 100 PLAN- U/S guided biopsy of kidney Tues. 03/28, NPO at midnight tonight.
--- NOTE | 2016-03-27 18:46 | PCM.PNMED ---
Subjective Date of Service Mar 27, 2016 Subjective Feliberto Concepcion is a 30 year old male with past medical history significant for proximal renal tubular acidosis and depression who presents with chest pain, malaise, and generalized body aches. Admitted for severe hypokalemia due to medication noncompliance. Hospital day 6. Overnight events: No acute overnight events. Today: No new complaints or events. Potassium improving today along with sodium. Nephrology planning to do kidney biopsy tomorrow and patient agrees to treatment plan. Patient angry today during interview and exam. Exam Vital Signs Vital Sign - Last Date Time Temp Pulse Resp B/P Pulse Ox O2 Delivery O2 Flow Rate FiO2 03/27/16 16:30 36.7 90 16 101/57 95 Room Air 03/23/16 07:33 2.00 Intake and Output 03/26/16 03/26/16 03/27/16 Cumulative From/Thru 15:00 23:00 07:00 03/21/16 11:01 - 03/27/16 06:45 Intake Total 1511 ml 1664 ml 58362 ml Output Total 2250 ml 1525 ml 58154 ml Balance -739 ml 139 ml 2578 ml Intake Oral 540 ml 850 ml 24990 ml IV Total 971 ml 814 ml 00691 ml Output Urine Total 2250 ml 1525 ml 35244 ml Stool Total 1400 ml Urine/Stool Mix 6400 ml Emesis 1300 ml # Voids 4 # Bowel Movements 1 11 Exam General: Patient lying in bed in no acute distress visibly angry, actively grinding teeth when asked questions. well-developed, well-nourished, poor hygiene HEENT: Normocephalic, atraumatic. External ears without defect. Pupils equal, round, and reactive to light and accommodation. Anicteric sclerae, moist conjunctivae, and no lid lag. Oropharynx free of erythema and cobble stoning. Mucous membranes moist. Neck: Supple with full range of motion. No jugular venous distension. No bruits. No lymphadenopathy or thyromegaly. Cardiovascular: Regular rate and rhythm with no murmurs, rubs, or gallops appreciated Pulmonary: Clear to auscultation bilaterally with no crackles, wheezes, or rhonchi. Normal respiratory effort with no use of accessory muscles. Abdomen: Bowel tones present. Soft, diffuse tenderness, nondistended. No hepatosplenomegaly or masses appreciated. Extremities: No clubbing, cyanosis, edema, or lymphadenopathy appreciated. Skin: Normal temperature, turgor, and texture; no rash, ulcers, or subcutaneous nodules appreciated. Neurological: Cranial nerves grossly intact. Normal muscle strength, tone, and bulk. Reflexes, coordination, and sensory function within normal limits. No known gait impairment. Psychiatric: Alert and oriented to person, place, and time. IVs and Medications Medications Reviewed: Medications were reviewed in detail Lab and Diagnostics Result Diagram: 03/27/1652603/27/16526 Microbiology MRSA screen negative. Influenza screen negative. Respiratory viral PCR negative. . X-Rays, CTs and MRIs X-RAY CHEST ONE VIEW IMPRESSION: Left basilar atelectasis/infiltrate, correlate clinically for pneumonia. Dictated by: Luis Domínguez M.D. on 03/21/2016 at 13:47 Approved by: Luis Domínguez M.D. on 03/21/2016 at 13:48 . 12-lead ECG EKG: Sinus rhythm, heart rate 61, normal axis, prolonged PA interval and QT interval, 2-1 AV block, ST elevation greater than 2 mm in anterior leads, u waves. . Echocardiogram Report Interpretation Summary The ejection fraction is estimated to be 65-70%. There is a trivial pericardial effusion noted. There is no significant valvular heart disease. Electronically signed by: Davie Hoyos on Reading Physician:03/22/2016 09:49 AM . 12-lead ECG EKG: Sinus rhythm, heart rate 61, normal axis, prolonged PA interval and QT interval, 2-1 AV block, ST elevation greater than 2 mm in anterior leads, u waves. . Cardiac Echo Impressions Echocardiogram Report Interpretation Summary The ejection fraction is estimated to be 65-70%. There is a trivial pericardial effusion noted. There is no significant valvular heart disease. Electronically signed by: Davie Hoyos on Reading Physician:03/22/2016 09:49 AM . Additional Diagnostics US ABDOMEN IMPRESSION: Increased hepatic echogenicity noted likely related to fatty infiltration of the liver but other sources of hepatocellular disease cannot be excluded. Recommend clinical correlation. Dictated by: Justin LONGORIA Interpreted: Kayy Montelongo MD on 03/24/2016 at 10:31 Transcribed by: ALLISON on 03/24/2016 at 10:32 Approved by: Kayy Montelongo MD, PhD on 03/24/2016 at 16:47 Assessment & Plan Feliberto Concepcion is a 30 year old male with past medical history significant for proximal renal tubular acidosis and depression who presents with chest pain, malaise, and generalized body aches. Admitted for severe hypokalemia. Hospital day 6. 1. Proximal renal tubular acidosis type II. - severe hypokalemia, metabolic acidosism hypophosphatemia. 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 - Nephrology planning renal biopsy 03/28/2016. 2. Severe acute on chronic Hypokalemia, present on admission. Resolving. - Etiology secondary to renal tubular acidosis and medication noncompliance. - On admission potassium 1.5 and magnesium 2.4. - U waves present on initial EKG. - K+ 3.2, Mag 2.1 - Spironolactone 25 mg daily discontinued. - Amiloride 20 mg BID. - Continuing aggressive potassium replacement. - Nephrology following. Appreciate time and expertise. 3. Proximal renal tubular acidosis, present on admission. Improving. - Patient was followed by Dr. Auguste, nephrology, but has not been seen in approximately year and is noncompliant with medications over the last 12 months. - Patient states she was supposed to be taking potassium and magnesium supplements along with spironolactone and propranolol. - Reinforced the need to be compliant with upon discharge. - Nephrology consulted. Appreciate time and expertise 4. Acute Nephrotic syndrome, present on admission, Active. -Random urine creatinine to protein ratio pending -Nephrology planning to do renal biopsy on Sunday 5. Chest pain due to suspected demand ischemia , present on admission. Resolved. - Likely secondary to hypokalemia and demand ischemia. - Initial troponin elevated at 0.149. Troponins trended down. - EKG showed U-waves. - Metoprolol 12.5 mg twice a day. - Aspirin 81 mg daily. - Chest x-ray showed no acute cardiopulmonary process. - Echocardiogram unremarkable. Results above. - Electrolyte management as above. 6. Elevated lactic acid, present on admission. Resolved. - Lactic acid of 3.0. Normalized. 7. Concern for suicidal thoughts, present on admission. Stable. - Patient states he is fine with dying but has no active thoughts or plans. He has been noncompliant with medications but no other attempts at suicide. - We will medically stabilized patient initially and then consider psychiatric evaluation. - Denies suicidal ideation currently. 8. Depression, present on admission. Chronic. - Patient states he was [facility] but has not followed up with them in over a year. - He has not taken his medications in over a year. - Medications included BuSpar, Celexa, and trazodone. - Citalopram 20 mg daily restarted. - Psychiatry consulted 03/24/2016, agree citalopram as appropriate choice. Reinforced the need for compliance with all medications. 9. Tobacco use, present on admission. Active. - Nicotine patch 21 mg daily. 10. Hypovolemic hyponatremia, present on admission. Resolved. - Patient states he has had poor by mouth intake. - CBC appears hemoconcentrated. - Continue monitor. 11. Acute kidney injury, present on admission. Improving. - Prerenal. - Treatment as above. 12. Diarrhea, not present on admission. Resolved. - Likely secondary to large amounts of electrolyte replacement. - Imodium Q6H PRN. 13. Transaminitis, present on admission. Active. - Persistent since admission. - Due to fatty liver disease. - Hepatitis panel negative. - Continue to monitor 14. Leukocytosis, present on admission. Improving. - Prior records from [facility] show persistent leukocytosis of unknown etiology. Patient has never completed a workup due to noncompliance. - On admission WBC 29.4. White blood cell count currently 16.1. - Procalcitonin initially 0.43. Currently 0.37. - Blood smear showed no schistocytes and path review pending. - Repeat labs and we will continue to monitor. - Will hold off empiric antibiotics. Acetaminophen for mild pain when necessary. Bowel regimen Senna and MiraLAX scheduled and PRN. Zofran when necessary for nausea and vomiting. SubQ heparin held for now. SCDs in place. Subcutaneous Lovenox. High-risk medications: Disposition: Likely discharge tomorrow following renal biopsy. Dependent upon overnight electrolyte stability. Will be discharged home with recommendations to follow-up with psychiatric care and medication compliance. Pain Evaluation: Adequate Pain Control GI Prophylaxis: Not indicated VTE Prophylaxis: Sub-Q Enoxaparin VTE Mechanical Devices: Intermittant Pneumatic CD Resuscitation Status: CPR: Attempt Resuscitation Attending Statement The patient was seen and examined together with Dr. Becerra on 03/27/2016 and I agree with the history, exam and plan as outlined in the note above. . JEWELL BECERRA DO Mar 27, 2016 18:46 Tommy Barajas MD Mar 27, 2016 21:07
--- NOTE | 2016-03-27 23:11 | NUR ---
Pain/anxiety Pt states he has back pain. He also states that the back pain increases with his anxiety Given PO percocet and IV ativan. Pt resting comfortably. No complaints.
[2016-03-28] MEDS: 0.9% NaCl + KCl 20 mEq/L 1,000 ML IV SCH (01:18)
[2016-03-28 04:14] LABS: Mean Corpuscular Hemoglobin 30.2 pg (27.0-35.0); Mean Corpuscular Volume 84.1 fL (81-100); Platelet Count 356 bil/L (150-400)
[2016-03-28 04:33] LABS: Phosphorus 3.2 mg/dL (2.5-4.9)
[2016-03-28 04:36] LABS: NEUTROPHILS % (AUTO) 34 % (40-74)
[2016-03-28 04:37] LABS: BASOPHILS % (AUTO) 1 % (0-3); EOSINOPHILS % (AUTO) 1 % (0-5); MONOCYTES % (AUTO) 6 % (4-12)
[2016-03-28 04:50] VITALS: BP 95/61; PULSE 86; RESP 18; O2SAT 98
[2016-03-28 07:39] VITALS: BP 100/60; PULSE 83; RESP 16; O2SAT 98
[2016-03-28] MEDS: Potassium Citrate ER 10 mEq ER24 Tablet PO SCH ×3 (07:44→17:50)
[2016-03-28] MEDS: oxyCODONE-Acetamin 5-325 mg Tablet PO PRN ×2 (07:45→20:39)
[2016-03-28] MEDS: Ondansetron 2 mg/mL 2 mL Inj IVPUSH PRN (07:50)
[2016-03-28] MEDS ORDERED: Potassium Chloride Inj 40 MEQ in 0.9% Sodium Chloride 500 ML IV ONE (09:00)
--- NOTE | 2016-03-28 10:12 | DRSVH ---
PROCEDURE: US AORTA RETROPERITONEAL LIMITED INDICATIONS: Proteinuria. Pre-procedural for renal biopsy. TECHNIQUE: Real time scanning was performed of the aorta and iliac arteries, with image documentatio n. COMPARISON: [facility], US, RETROPERITONEAL SONOGRAM, 02/17/2013, 8:48. [facility], US, US ABDOMEN, 03/24/2016, 7:40. FINDINGS: The kidneys are suboptimally visualized on ultrasound. Renal biopsy could not be performed safely under ultrasound guidance. IMPRESSION: Renal ultrasound could not be performed safely under ultrasound guidance. Dictated by: Amber Pitts M.D. on 03/28/2016 at 10:08 Approved by: Amber Pitts M.D. on 03/28/2016 at 10:11
[2016-03-28 11:52] VITALS: BP 104/49; PULSE 84; RESP 16; O2SAT 98
--- NOTE | 2016-03-28 17:04 | PCM.PNMED ---
Subjective Date of Service Mar 28, 2016 Subjective The kidneys are suboptimally visualized on ultrasound. Renal biopsy was cancelled. CT-guided kidney biopsy was planned for tomorrow. K level is again trending down despite oral and IV K supplement. Exam Vital Signs Vital Sign - Last Date Time Temp Pulse Resp B/P Pulse Ox O2 Delivery O2 Flow Rate FiO2 03/28/16 11:52 36.8 84 16 104/49 98 Room Air 03/23/16 07:33 2.00 Intake and Output 03/27/16 03/27/16 03/28/16 Cumulative From/Thru 15:00 23:00 07:00 03/21/16 11:01 - 03/28/16 05:32 Intake Total 976 ml 2060 ml 63808 ml Output Total 1150 ml 3094 ml 51288 ml Balance -174 ml -1034 ml 1370 ml Intake Oral 976 ml 1160 ml 44824 ml IV Total 900 ml 96967 ml Output Urine Total 1150 ml 3094 ml 45230 ml Stool Total 1400 ml Urine/Stool Mix 6400 ml Emesis 1300 ml # Voids 4 # Bowel Movements 3 14 Exam General: AAOx3, NAD. HEENT: atraumatic. PERRLA, anicteric sclerae, moist mucous membrane. Neck: Supple with full range of motion. No lymphadenopathy or thyromegaly. Cardiovascular: Regular rate and rhythm with no murmurs, rubs, or gallops appreciated Pulmonary: Clear to auscultation bilaterally with no crackles, wheezes, or rhonchi. Normal respiratory effort with no use of accessory muscles. Abdomen: Soft, nontender, nondistended, bowel sounds present. No hepatosplenomegaly or masses appreciated. Extremities: No clubbing, cyanosis, or edema. Skin: Normal temperature, turgor, and texture; no rash, ulcers, or subcutaneous nodules appreciated. Psychiatric: Flat affect. Depressed mood. Lab and Diagnostics Result Diagram: 03/28/16 0330 03/28/16 033 Microbiology MRSA screen negative. Influenza screen negative. Respiratory viral PCR negative. . X-Rays, CTs and MRIs X-RAY CHEST ONE VIEW IMPRESSION: Left basilar atelectasis/infiltrate, correlate clinically for pneumonia. Dictated by: Luis Domínguez M.D. on 03/21/2016 at 13:47 Approved by: Luis Domínguez M.D. on 03/21/2016 at 13:48 . 12-lead ECG EKG: Sinus rhythm, heart rate 61, normal axis, prolonged [place] interval and QT interval, 2-1 AV block, ST elevation greater than 2 mm in anterior leads, u waves. . Echocardiogram Report Interpretation Summary The ejection fraction is estimated to be 65-70%. There is a trivial pericardial effusion noted. There is no significant valvular heart disease. Electronically signed by: Davie Hoyos on Reading Physician:03/22/2016 09:49 AM . 12-lead ECG EKG: Sinus rhythm, heart rate 61, normal axis, prolonged [place] interval and QT interval, 2-1 AV block, ST elevation greater than 2 mm in anterior leads, u waves. . Cardiac Echo Impressions Echocardiogram Report Interpretation Summary The ejection fraction is estimated to be 65-70%. There is a trivial pericardial effusion noted. There is no significant valvular heart disease. Electronically signed by: Davie Hoyos on Reading Physician:03/22/2016 09:49 AM . Additional Diagnostics US ABDOMEN IMPRESSION: Increased hepatic echogenicity noted likely related to fatty infiltration of the liver but other sources of hepatocellular disease cannot be excluded. Recommend clinical correlation. Dictated by: Justin Briceno RR Interpreted: Kayy Montelongo MD on 03/24/2016 at 10:31 Transcribed by: ALLISON on 03/24/2016 at 10:32 Approved by: Kayy Montelongo MD, PhD on 03/24/2016 at 16:47 Assessment & Plan 1. Proximal renal tubular acidosis type II. - severe hypokalemia, metabolic acidosis, hypophosphatemia. 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 2. Mixed anion gap metabolic acidosis secondary to lactic acidosis and non- anion gap metabolic acidosis secondary to proximal RTA type II. 3. ANN, resolved. 4. Nephrotic syndrome. 5. Transminitis with increased hepatic echogenicity. 6. 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 7. Anxiety. 8. Medication non-compliance. Plan: Increase K-citrate to 30 meq TID. Start NS+KCL 40 meq IV over 4 hr. repeat K level in at 1800. CT-guided kidney biopsy on 03/29/16. NPO AMN. GI Prophylaxis: Not indicated VTE Prophylaxis: Sub-Q Enoxaparin VTE Mechanical Devices: Intermittant Pneumatic CD Resuscitation Status: CPR: Attempt Resuscitation Eliana Snyder MD Mar 28, 2016 17:04
--- NOTE | 2016-03-28 17:30 | PCM.PNMED ---
Subjective Date of Service Mar 28, 2016 Subjective Feliberto Concepcion is a 30 year old gentleman with past medical history significant for proximal renal tubular acidosis and depression with psychotic features, anxiety, medication noncompliance who presents with chest pain, malaise, and generalized body aches. Admitted for severe hypokalemia due to medication noncompliance. Hospital day 8. Overnight events: No acute overnight events. Today: No new complaints or events. Potassium worsening today. Nephrology planning to do kidney biopsy today and patient agrees to treatment plan. Patient continues to be aggravated in general and especially regarding his current state of health and hospital stay. Exam Vital Signs Vital Sign - Last Date Time Temp Pulse Resp B/P Pulse Ox O2 Delivery O2 Flow Rate FiO2 03/28/16 11:52 36.8 84 16 104/49 98 Room Air 03/23/16 07:33 2.00 Intake and Output 03/27/16 03/27/16 03/28/16 Cumulative From/Thru 15:00 23:00 07:00 03/21/16 11:01 - 03/28/16 05:32 Intake Total 976 ml 2060 ml 96341 ml Output Total 1150 ml 3094 ml 13297 ml Balance -174 ml -1034 ml 1370 ml Intake Oral 976 ml 1160 ml 39393 ml IV Total 900 ml 76210 ml Output Urine Total 1150 ml 3094 ml 54162 ml Stool Total 1400 ml Urine/Stool Mix 6400 ml Emesis 1300 ml # Voids 4 # Bowel Movements 3 14 Exam General: Patient lying in bed in no acute distress visibly angry, actively grinding teeth when asked questions. well-developed, well-nourished, poor hygiene HEENT: Normocephalic, atraumatic. External ears without defect. Pupils equal, round, and reactive to light and accommodation. Anicteric sclerae, moist conjunctivae, and no lid lag. Oropharynx free of erythema and cobble stoning. Mucous membranes moist. Neck: Supple with full range of motion. No jugular venous distension. No bruits. No lymphadenopathy or thyromegaly. Cardiovascular: Regular rate and rhythm with no murmurs, rubs, or gallops appreciated Pulmonary: Clear to auscultation bilaterally with no crackles, wheezes, or rhonchi. Normal respiratory effort with no use of accessory muscles. Abdomen: Bowel tones present. Soft, diffuse tenderness, nondistended. No hepatosplenomegaly or masses appreciated. Extremities: No clubbing, cyanosis, edema, or lymphadenopathy appreciated. Skin: Normal temperature, turgor, and texture; no rash, ulcers, or subcutaneous nodules appreciated. Neurological: Cranial nerves grossly intact. Normal muscle strength, tone, and bulk. Reflexes, coordination, and sensory function within normal limits. No known gait impairment. Psychiatric: Alert and oriented to person, place, and time. IVs and Medications Medications Reviewed: Medications were reviewed in detail Lab and Diagnostics Result Diagram: 03/28/16 0330 03/28/16 033 Microbiology MRSA screen negative. Influenza screen negative. Respiratory viral PCR negative. . X-Rays, CTs and MRIs X-RAY CHEST ONE VIEW IMPRESSION: Left basilar atelectasis/infiltrate, correlate clinically for pneumonia. Dictated by: Lusi Domínguez M.D. on 03/21/2016 at 13:47 Approved by: Luis Domínguez M.D. on 03/21/2016 at 13:48 . 12-lead ECG EKG: Sinus rhythm, heart rate 61, normal axis, prolonged [place] interval and QT interval, 2-1 AV block, ST elevation greater than 2 mm in anterior leads, u waves. . Echocardiogram Report Interpretation Summary The ejection fraction is estimated to be 65-70%. There is a trivial pericardial effusion noted. There is no significant valvular heart disease. Electronically signed by: Davie Hoyos on Reading Physician:03/22/2016 09:49 AM . 12-lead ECG EKG: Sinus rhythm, heart rate 61, normal axis, prolonged [place] interval and QT interval, 2-1 AV block, ST elevation greater than 2 mm in anterior leads, u waves. . Cardiac Echo Impressions Echocardiogram Report Interpretation Summary The ejection fraction is estimated to be 65-70%. There is a trivial pericardial effusion noted. There is no significant valvular heart disease. Electronically signed by: Davie Hoyos on Reading Physician:03/22/2016 09:49 AM . Additional Diagnostics US ABDOMEN IMPRESSION: Increased hepatic echogenicity noted likely related to fatty infiltration of the liver but other sources of hepatocellular disease cannot be excluded. Recommend clinical correlation. Dictated by: Justin LONGORIA Interpreted: Kayy Montelongo MD on 03/24/2016 at 10:31 Transcribed by: ALLISON on 03/24/2016 at 10:32 Approved by: Kayy Montelongo MD, PhD on 03/24/2016 at 16:47 Assessment & Plan Feliberto Concepcion is a 30 year old male with past medical history significant for proximal renal tubular acidosis and depression who presents with chest pain, malaise, and generalized body aches. Admitted for severe hypokalemia. Hospital day 8. 1. Proximal renal tubular acidosis type II. Present on admission. Active. 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 - Severe hypokalemia, metabolic acidosis, hypophosphatemia. - Patient was followed by Dr. Auguste, nephrology, but has not been seen in approximately year and is noncompliant with medications over the last 12 months. - Patient states he was supposed to be taking potassium and magnesium supplements along with spironolactone and propranolol. - Reinforced the need to be compliant with upon discharge. - Nephrology consulted. Appreciate time and expertise - Ultrasound-guided renal biopsy 03/28/2016 could not successfully visualized kidneys and will proceed with CT-guided ultrasound 03/29/2016 in the morning. Lovenox being held. Nothing by mouth after midnight 2. Severe acute on chronic Hypokalemia, present on admission. Resolving. - Etiology secondary to renal tubular acidosis and medication noncompliance. - On admission potassium 1.5 and magnesium 2.4. - U waves present on initial EKG. - K+ 2.9, Mag 2.0. - Amiloride 20 mg BID. - Continuing aggressive potassium replacement. - Nephrology following. Appreciate time and expertise. 3. Acute Nephrotic syndrome, present on admission, Active. -Random urine creatinine to protein ratio pending - Ultrasound-guided renal biopsy 03/28/2016 could not successfully visualized kidneys and will proceed with CT-guided ultrasound 03/29/2016 in the morning. Lovenox being held. Nothing by mouth after midnight 4. Chest pain due to suspected demand ischemia , present on admission. Resolved. - Likely secondary to hypokalemia and demand ischemia. - Initial troponin elevated at 0.149. Troponins trended down. - EKG showed U-waves. - Metoprolol 12.5 mg twice a day. - Aspirin 81 mg daily. - Chest x-ray showed no acute cardiopulmonary process. - Echocardiogram unremarkable. Results above. - Electrolyte management as above. 5. Concern for suicidal thoughts, present on admission. Stable. - Patient states he is fine with dying but has no active thoughts or plans. He has been noncompliant with medications but no other attempts at suicide. - We will medically stabilized patient initially and then consider psychiatric evaluation. - Denies suicidal ideation currently. 6. Depression, present on admission. Chronic. - Patient states he was seen [facility] but has not followed up with them in over a year. - He has not taken his medications in over a year. - Medications included BuSpar, Celexa, and trazodone. - Citalopram 20 mg daily restarted. - Psychiatry consulted 03/24/2016, agree citalopram as appropriate choice. Reinforced the need for compliance with all medications. 7. Tobacco use, present on admission. Active. - Nicotine patch 21 mg daily. 8. Hypovolemic hyponatremia, present on admission. Resolved. - Patient states he has had poor by mouth intake. - CBC appears hemoconcentrated. - Continue monitor. 9. Acute kidney injury, present on admission. Improving. - Prerenal. - Treatment as above. 10. Diarrhea, not present on admission. Resolved. - Likely secondary to large amounts of electrolyte replacement. - Imodium Q6H PRN. 11. Transaminitis, present on admission. Active. - Persistent since admission. - Due to fatty liver disease. - Hepatitis panel negative. - Continue to monitor 12. Leukocytosis, present on admission. Improving. - Prior records from [facility] show persistent leukocytosis of unknown etiology. Patient has never completed a workup due to noncompliance. - On admission WBC 29.4. White blood cell count currently 16.1. - Procalcitonin initially 0.43. Currently 0.37. - Blood smear showed no schistocytes and path review pending. - Repeat labs and we will continue to monitor. - Will hold off empiric antibiotics. Acetaminophen for mild pain when necessary. Bowel regimen Senna and MiraLAX scheduled and PRN. Zofran when necessary for nausea and vomiting. SubQ heparin held for now. SCDs in place. Subcutaneous Lovenox currently held for biopsy tomorrow. High-risk medications: Disposition: Likely discharge tomorrow following renal biopsy. Dependent upon overnight electrolyte stability. Will be discharged home with recommendations to follow-up with psychiatric care and medication compliance. Pain Evaluation: Adequate Pain Control GI Prophylaxis: Not indicated VTE Prophylaxis: Sub-Q Enoxaparin VTE Mechanical Devices: Intermittant Pneumatic CD Resuscitation Status: CPR: Attempt Resuscitation Attending Statement The patient was seen and examined together with Dr. Becerra on 03/28/2016 I agree with the history, exam and plan as outlined in the note above. . JEWELL BECERRA DO Mar 28, 2016 14:52 Tommy Barajas MD Mar 29, 2016 08:27
--- NOTE | 2016-03-28 17:35 | NUR ---
K+/ Behavior K+ level low this AM at 2.9, oral and IV replacements given but K+ remains 2.9 on redraw. Patient not responding to this RN when I ask questions or explain care. He will ask for beverages and tell me he has to go to the bathroom. Patient refused to have his vital signs taken by CNC SET UP OPERATOR.
[2016-03-28 20:31] VITALS: BP 97/64; PULSE 92; RESP 16; O2SAT 96
[2016-03-28 23:33] VITALS: BP 105/68; PULSE 84; RESP 16; O2SAT 98
[2016-03-29] MEDS ORDERED: KCl 40 mEq/100 mL (CENTRAL) 40 MEQ in IV Premix 1 EACH IV ONE (00:15)
[2016-03-29 03:11] LABS: Mean Corpuscular Hemoglobin 30.4 pg (27.0-35.0); Mean Corpuscular Volume 83.2 fL (81-100)
[2016-03-29 03:19] VITALS: BP 100/65; PULSE 67; RESP 16; O2SAT 97
[2016-03-29 03:35] LABS: Magnesium 2.1 mg/dL (1.6-2.6); Phosphorus 3.3 mg/dL (2.5-4.9)
--- NOTE | 2016-03-29 04:19 | NUR ---
Non-compliance Refused 1st rnd VS, Stated wouldn't take anything from RN , Mother in room assisting w ADL and communication, , pt refused eye contact, RN informed him that we were only there to help him. Gave Percocet x1, Ativan .5 Mg IV x1, pt relaxed and allowed limited interventions. PICC line doesn't draw for labs, K-2.6, Dr Davison ordered 40 Meq K IV per central line . Not on telemetry, on room air, Biopsy in AM . suspect underlying depression exacerbated by lifestyle .
[2016-03-29 07:41] VITALS: BP 106/68; PULSE 82; RESP 18; O2SAT 97
[2016-03-29] MEDS: Potassium Citrate ER 10 mEq ER24 Tablet PO SCH (07:50)
[2016-03-29] MEDS ORDERED: Potassium Chloride 20 mEq/15 mL 15mL Oral Soln PO ONE (09:30)
--- NOTE | 2016-03-29 11:37 | PCM.PNMED ---
Subjective Date of Service Mar 29, 2016 Subjective no acute issue overnight. NPO for a kidney biopsy today. Exam Vital Signs Vital Sign - Last Date Time Temp Pulse Resp B/P Pulse Ox O2 Delivery O2 Flow Rate FiO2 03/29/16 07:41 36.9 82 18 106/68 97 Room Air 03/23/16 07:33 2.00 Intake and Output 03/28/16 03/28/16 03/29/16 Cumulative From/Thru 15:00 23:00 07:00 03/21/16 11:01 - 03/29/16 06:17 Intake Total 1760 ml 279 ml 65972 ml Output Total 1650 ml 2050 ml 43209 ml Balance 110 ml -1771 ml -291 ml Intake Oral 1360 ml 200 ml 60178 ml IV Total 400 ml 79 ml 93323 ml Output Urine Total 1650 ml 2050 ml 11331 ml Stool Total 1400 ml Urine/Stool Mix 6400 ml Emesis 1300 ml # Voids 4 # Bowel Movements 1 0 15 Exam General: AAOx3, NAD. HEENT: atraumatic. PERRLA, anicteric sclerae, moist mucous membrane. Neck: Supple with full range of motion. No lymphadenopathy or thyromegaly. Cardiovascular: Regular rate and rhythm with no murmurs, rubs, or gallops appreciated Pulmonary: Clear to auscultation bilaterally with no crackles, wheezes, or rhonchi. Normal respiratory effort with no use of accessory muscles. Abdomen: Soft, nontender, nondistended, bowel sounds present. No hepatosplenomegaly or masses appreciated. Extremities: No clubbing, cyanosis, or edema. Skin: Normal temperature, turgor, and texture; no rash, ulcers, or subcutaneous nodules appreciated. Psychiatric: Flat affect. Depressed mood. Lab and Diagnostics Result Diagram: 03/29/16 0240 03/29/16 0240 Microbiology MRSA screen negative. Influenza screen negative. Respiratory viral PCR negative. . X-Rays, CTs and MRIs X-RAY CHEST ONE VIEW IMPRESSION: Left basilar atelectasis/infiltrate, correlate clinically for pneumonia. Dictated by: Luis Domínguez M.D. on 03/21/2016 at 13:47 Approved by: Luis Domínguez M.D. on 03/21/2016 at 13:48 . 12-lead ECG EKG: Sinus rhythm, heart rate 61, normal axis, prolonged [place] interval and QT interval, 2-1 AV block, ST elevation greater than 2 mm in anterior leads, u waves. . Echocardiogram Report Interpretation Summary The ejection fraction is estimated to be 65-70%. There is a trivial pericardial effusion noted. There is no significant valvular heart disease. Electronically signed by: Davie Hoyos on Reading Physician:03/22/2016 09:49 AM . 12-lead ECG EKG: Sinus rhythm, heart rate 61, normal axis, prolonged [place] interval and QT interval, 2-1 AV block, ST elevation greater than 2 mm in anterior leads, u waves. . Cardiac Echo Impressions Echocardiogram Report Interpretation Summary The ejection fraction is estimated to be 65-70%. There is a trivial pericardial effusion noted. There is no significant valvular heart disease. Electronically signed by: Davie Hoyos on Reading Physician:03/22/2016 09:49 AM . Additional Diagnostics US ABDOMEN IMPRESSION: Increased hepatic echogenicity noted likely related to fatty infiltration of the liver but other sources of hepatocellular disease cannot be excluded. Recommend clinical correlation. Dictated by: Justin Briceno [facility] Interpreted: Kayy Montelongo MD on 03/24/2016 at 10:31 Transcribed by: ALLISON on 03/24/2016 at 10:32 Approved by: Kayy Montelongo MD, PhD on 03/24/2016 at 16:47 Assessment & Plan 1. Proximal renal tubular acidosis type II. - severe hypokalemia, metabolic acidosis, hypophosphatemia. 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 2. Mixed anion gap metabolic acidosis secondary to lactic acidosis and non- anion gap metabolic acidosis secondary to proximal RTA type II. 3. ANN, resolved. 4. Nephrotic syndrome. 5. Transminitis with increased hepatic echogenicity. -Serum ceruloplasmin was sent to rule out Subhash's disease. 6. 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 7. Anxiety. 8. Medication non-compliance. Plan: Increase K-citrate to [address]-guided kidney biopsy today. NPO. Repeat H&H 6 hr after biopsy, if stable can be d/c'd. f/u with renal in 1 week. hold ASA. GI Prophylaxis: Not indicated VTE Prophylaxis: Sub-Q Enoxaparin VTE Mechanical Devices: Intermittant Pneumatic CD Resuscitation Status: CPR: Attempt Resuscitation Eliana Snyder MD Mar 29, 2016 11:37
[2016-03-29] MEDS ORDERED: Potassium Citrate ER 10 mEq ER24 Tablet PO SCH (12:00)
--- NOTE | 2016-03-29 12:19 | PCM.DIMED ---
MARIAMJEWELL Luis 03/29/16 1219: Discharge Instructions Date of Service Mar 29, 2016 Dates of Hospitalization Mar 21, 2016 at 17:56 Discharge Diagnosis Discharge Diagnosis 1. Proximal renal tubular acidosis type II. Present on admission. Active. 2. Severe acute on chronic Hypokalemia, present on admission. Resolving. 3. Acute Nephrotic syndrome, present on admission, Active. 4. Chest pain due to suspected demand ischemia , present on admission. Resolved. 5. Concern for suicidal thoughts, present on admission. Stable. 6. Depression, present on admission. Chronic. 7. Tobacco use, present on admission. Active. 8. Hypovolemic hyponatremia, present on admission. Resolved. 9. Acute kidney injury, present on admission. Improving. 10. Diarrhea, not present on admission. Resolved. 11. Transaminitis, present on admission. Active. 12. Leukocytosis, present on admission. Improving. Medication Instructions Medication changes. Increase K-citrate to 40 meq three times per day. Do not take Aspirin for [address] guided renal biopsy results are pending. Diet Diabetic, Renal Diet (low protein, high potassium. ) Patient Instructions Follow-up plan Do not hesitate to call emergency services or your primary care physician if you experience any of the following. -High unrelenting fevers. -Uncontrolled vomiting. -Severe hypertension. -Syncope or loss of consciousness. -Chest pain or severe shortness of breath. Follow up with your primary care physician in 1-2 weeks time following your emergency department visit for medication checks and general well-being. CT-guided kidney biopsy today will discuss results during follow up appointment. Follow up with Nephrology in 1 week. Follow-up Provider: Eliana Snyder MD Follow-up with PCP in: 1 week Tino Montero 03/29/16 1626: Discharge Instructions Diet Renal Diet (low protein, high potassium. ) Patient Instructions Follow up with Dr. Cook in 1 week Take Potassium citrate 3 times per day Do not hesitate to call emergency services or your primary care physician if you experience any of the following. -High unrelenting fevers. -Uncontrolled vomiting. -Severe hypertension. -Syncope or loss of consciousness. -Chest pain or severe shortness of breath. Follow up with your primary care physician in 1-2 weeks time following your emergency department visit for medication checks and general well-being. Follow-up with PCP in: 1 week Tommy Barajas MD 03/31/16 1733: Discharge Instructions Attending's Statement The patient was seen and examined together with Dr. Becerra on 03/29/2016 and I agree with the history, exam and plan as outlined in the note above. . JEWELL BECERRA DO Mar 29, 2016 12:19 Tino Montero Mar 29, 2016 16:26 Tommy Barajas MD Mar 31, 2016 17:33
[2016-03-29] MEDS ORDERED: fentaNYL-PF 50 mCg/mL 2 mL Inj ONE (13:00)
[2016-03-29] MEDS ORDERED: 0.9% Sodium Chloride 500 ML ONE (13:00)
--- NOTE | 2016-03-29 14:21 | NUR ---
Procedure/Care Pt ordered for CT guided biopsy of kidneys, pt npo and pre- medicated per MD order. Pt left unit at about 1300, alert and oriented via bed. procedure deferred to 03/30 for further testing. pt informed. pt returned to room at about 1400. Pt cooperative with care today, allowing vs and assessments. using urinal. pt continues to be withdrawn with minimally talking. family at bedside.
--- NOTE | 2016-03-29 14:52 | DRSVH ---
PROCEDURE: CT-GUIDED RENAL BIOPSY BY RADIOLOGIST ([id number]) Sedation analgesia for zero minutes. INDICATIONS: RENAL TUBULAR ACIDOSIS TECHNIQUE: The indications, alternatives, benefits, risks, and possible complications of the procedure were comm unicated to the patient. Informed written consent from the patient was obtained and placed in the art. Continuous EKG and hemodynamic monitoring was started by trained personnel. For radiation dose reduction, the following was used: automated exposure control, adjustment of mA and/or kV according to patient size. The patient was brought to the CT suite and mental health advanced practice nurse spiral CT imaging was performed with localization g rid COMPARISON: None. FINDINGS: Localization imaging demonstrated subtle, straight hypo-densities in the kidneys bilaterally suspicio us for pyelonephritis. Numerous small nonobstructing bilateral renal stones are noted. No hydronephro sis. IMPRESSION: CT-guided renal biopsy was not performed due to the imaging appearance of the kidneys [facility] is suggestive of pyelonephritis. Urinalysis should be performed to exclude pyelonephritis prior to biopsy. Dictated by: Kayy Montelongo MD, PhD on 03/29/2016 at 14:47 Approved by: Kayy Montelongo MD, PhD on 03/29/2016 at 14:50
--- NOTE | 2016-03-29 15:14 | NUR ---
Social Work: Continued Discharge Planning Data & Assessment: EMR. Patient discussed in am rounds. Patient was scheduled for biopsy today, but it was deferred until 03/30/16 due to further testing being needed. SW attempted to meet with patient at bedside to follow-up on suicidal ideation reported when he admitted to the hospital. Patient was in bed with eyse closed when SW arrived. Patient dis not open eyes, but he answered SW by nodding his head no when SW asked if she could talk with him. Patient would not engage further with Hydraulic Lift Driver. SW attempted to call patient's mother [phone] to discuss discharge plan, but there was no answer. SW left a message with her name and number requesting a call back. SW notified patient's CM. Plan: Hydraulic Lift Driver will continue to follow patient for safety/discharge planning. Elizabeth Jim LMSW, ACM
[2016-03-29 16:10] VITALS: BP 117/72; PULSE 92; RESP 16; O2SAT 98
--- NOTE | 2016-03-29 16:24 | NUR ---
NUTRITION ASSESSMENT Assess: 30 yo male admitted w/ renal tubular acidosis and hypokalemia. Nephrology is consulted and plans to perform a CT guided biopsy of the kidneys to assess cause of RTA. CT postponed until 03/30. Pt continues to have hypokalemia and metabolic acidosis. MD ordered low protein (0.8 g/kg), high potassium diet. Pt states feeling hungry and thirsty. Encouraged pt to order food when NPO status is changed. PMHx: Renal tubular acidosis, Depression, Anxiety, Tobacco Use LABS: Na 131, K 3.0, Cl 91, Gluc 103, ALT 72 MEDICATIONS: Reviewed. Scott Liriano CURRENT DIET: General PO Refused-100% GI symptoms/stool: BMx4 (03/28) SKIN: Tomer 18 ANTHROPOMETRICS: Current Wt: 80.9 kg BMI: 27.1 kg/m2 IBW: 68.4 kg Admit Wt: 85.4 kg ESTIMATED NEEDS: Calories: 5766-8633 kcal/day (25-30 kcal/kg Current BW) Protein: 65-80 g/day (0.8-1.0 g/kg Current BW) NUTRITION DIAGNOSIS: 1) Altered nutrition-related lab values related to renal tubular acidosis as evidenced by low potassium values. INTERVENTION: 1) Provided pt a list of high potassium foods to use when ordering meals. Encouraged pt to consume one high potassium food per meal. 2) Limit protein to 65 g per day as requested per MD. MONITOR/EVALUATE: PO intake, labs, wt, GI, nutrition status, POC. Will follow per moderate nutrition risk guidelines. Addendum: 03/29/16 at [address] Student documentation reviewed and I agree with the above assessment. Helena Del Valle, MS, RDN, CD
[2016-03-29] MEDS ORDERED: POTA10TA19 PO (16:28)
[2016-03-29 17:16] LABS: APPEARANCE,URINE HAZY (CLEAR,HAZY); COLOR,URINE STRAW (YELLOW); OCCULT BLOOD,URINE NEGATIVE (NEGATIVE); PH,URINE 7.5 (5.0-8.0); UROBILINOGEN,URINE NORMAL (NORMAL)
--- NOTE | 2016-03-29 18:15 | NUR ---
Discharge pt ordered for discharge home with family. discharge instructions and medications reviewed with patient. pt ambulated out with steady gait and all belongings at about 1810.
[2016-03-30 14:10] LABS: Antiproteinase 3 (PR-3) Abs <3.5 U/mL (0.0-3.5); Perinuclear (P-ANCA) <1:20 titer (Neg:<1:20)
--- NOTE | 2016-04-01 15:13 | PCM.DC.MED ---
Discharge Summary Date of Service Apr 01, 2016 Dates of Hospitalization Date of Hospital Admission Mar 21, 2016 at 17:56 Date of Discharge: Mar 29, 2016 Providers: Admitting Physician: Duane Mata MD Primary Care Physician: Suzette Alvarenga PA-C Attending Physician: Duane Mata MD Diagnosis at Time of Discharge Diagnosis at Time of Discharge 1. Proximal renal tubular acidosis type II. Present on admission. Active. 2. Severe acute on chronic Hypokalemia, present on admission. Resolving. 3. Acute Nephrotic syndrome, present on admission, Active. 4. Chest pain due to suspected demand ischemia , present on admission. Resolved. 5. Concern for suicidal thoughts, present on admission. Stable. 6. Depression, present on admission. Chronic. 7. Tobacco use, present on admission. Active. 8. Hypovolemic hyponatremia, present on admission. Resolved. 9. Acute kidney injury, present on admission. Improving. 10. Diarrhea, not present on admission. Resolved. 11. Transaminitis, present on admission. Active. 12. Leukocytosis, present on admission. Improving. Procedures XRay, CTs & MRIs X-RAY CHEST ONE VIEW IMPRESSION: Left basilar atelectasis/infiltrate, correlate clinically for pneumonia. Dictated by: Luis Domínguez M.D. on 03/21/2016 at 13:47 Approved by: Luis Domínguez M.D. on 03/21/2016 at 13:48 . 12-lead ECG EKG: Sinus rhythm, heart rate 61, normal axis, prolonged AK interval and QT interval, 2-1 AV block, ST elevation greater than 2 mm in anterior leads, u waves. . Echocardiogram Report Interpretation Summary The ejection fraction is estimated to be 65-70%. There is a trivial pericardial effusion noted. There is no significant valvular heart disease. Electronically signed by: Davie Hoyos on Reading Physician:03/22/2016 09:49 AM . ECG 12 Lead EKG: Sinus rhythm, heart rate 61, normal axis, prolonged AK interval and QT interval, 2-1 AV block, ST elevation greater than 2 mm in anterior leads, u waves. . Cardiac Echo Impression Echocardiogram Report Interpretation Summary The ejection fraction is estimated to be 65-70%. There is a trivial pericardial effusion noted. There is no significant valvular heart disease. Electronically signed by: Davie Hoyos on Reading Physician:03/22/2016 09:49 AM . Other Diagnostics US ABDOMEN IMPRESSION: Increased hepatic echogenicity noted likely related to fatty infiltration of the liver but other sources of hepatocellular disease cannot be excluded. Recommend clinical correlation. Dictated by: Justin Briceno Yue Interpreted: Kayy Montelongo MD on 03/24/2016 at 10:31 Transcribed by: ALLISON on 03/24/2016 at 10:32 Approved by: Kayy Montelongo MD, PhD on 03/24/2016 at 16:47 Brief History Feliberto Concepcion is a 30-year-old male with a past medical history significant for proximal renal tubular acidosis type II with associated hypokalemia who presents [facility] emergency department with complaints of nausea, vomiting, generalized weakness, myalgias and chest pain. The patient reports that he began having generalized weakness with myalgias 2-3 days ago which have been worsening in intensity. He reports that he had nausea and vomiting 4 episodes yesterday with mild diffuse abdominal pain. He had a mild episode of chest pain yesterday that resolved. He reports the chest pain became really "bad "today around 9:30 AM. He describes the chest pain as pressure-like sensation that is located substernally. The chest pain does not radiate. He had associated shortness of breath and diaphoresis. He reports he has had chest pain like this in the past but this is the worst episode he has had. He also reports suicidal ideation without a plan and denies ever attempting to commit suicide in the past. Additionally, he reports that he has been hearing voices, specifically hearing a radio playing in the background all day or hearing someone say something and he continues to hear it repeatedly all day, as well as, delusions. He reports he is homeless and lives out of his vehicle. He has had decreased PO intake and has not taken his medications for over one month. He also reports increased urination despite not drinking much fluid. He denies headache, lightheadedness or dizziness, current shortness of breath, fever, chills, dysuria, diarrhea or constipation. He denies recent NSAID use. He has no rashes. Of note, the patient has had numerous hospitalizations over the last year with similar symptoms. He states he has been hospitalized over 12 times in the last year. Records from [facility] show that he has had a long history of medication noncompliance and discharging from the hospital against medical advice. Most recent hospitalization was 02/25/16-02/29/16 for hypokalemia of less than 1.5. From Dr. Sanchez's note: Approximately a year ago the patient had been following with Dr. Auguste for his renal tubular acidosis. Due to noncompliance patient has not been seen recently. He states last primary care visit was with Suzette Alvarenga over a year ago. He also was followed by a psychiatrist at [place] but has not been seen in over a year. Patient states he has no desire to follow-up as "nothing seems to help his situation." He states his medication noncompliance is due to the taste and side effects of medications. Patient reports that he is fine with dying but has not actively attempted a suicide attempt besides stopping medications. Patient is currently homeless along with his parents. On presentation to the ED patient's vitals were temperature 36.5, pulse 64, respiratory rate 16, blood pressure 104/64, oxygen saturation 97% on 2 L nasal cannula. Initial labs revealed white blood cell count 29.4, hemoglobin 20.1, hematocrit 52.0, sodium 126, potassium 1.5, carbon dioxide 14, BUN 16, creatinine 1.3 to, and troponin T of 0.149. EKG was significant for U waves consistent with severe hypokalemia in 2-1 atrioventricular block. UDS positive for THC and opiates. Patient was given 30 mEq of potassium chloride 2, magnesium sulfate 2 g 1, 1 L NS, and 1 L D5W KCl. . Hospital Course Feliberto Concepcion is a 30 year old male with past medical history significant for proximal renal tubular acidosis and depression who presents with chest pain, malaise, and generalized body aches. Admitted for severe hypokalemia. Hospital day 8. 1. Proximal renal tubular acidosis type II. Present on admission. Active. 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 - Severe hypokalemia, metabolic acidosis, hypophosphatemia. - Patient was followed by Dr. Auguste, nephrology, but has not been seen in approximately year and is noncompliant with medications over the last 12 months. - Patient states he was supposed to be taking potassium and magnesium supplements along with spironolactone and propranolol. - Reinforced the need to be compliant with upon discharge. - Nephrology consulted. Appreciate time and expertise - Ultrasound-guided renal biopsy 03/28/2016 could not successfully visualized kidneys and will proceed with CT-guided ultrasound 03/29/2016 in the morning. Lovenox being held. Nothing by mouth after midnight 2. Severe acute on chronic Hypokalemia, present on admission. Resolving. - Etiology secondary to renal tubular acidosis and medication noncompliance. - On admission potassium 1.5 and magnesium 2.4. - U waves present on initial EKG. - K+ 2.9, Mag 2.0. - Amiloride 20 mg BID. - Continuing aggressive potassium replacement. - Nephrology following. Appreciate time and expertise. 3. Acute Nephrotic syndrome, present on admission, Active. -Random urine creatinine to protein ratio pending - Ultrasound-guided renal biopsy 03/28/2016 could not successfully visualized kidneys and will proceed with CT-guided ultrasound 03/29/2016 in the morning. Lovenox being held. Nothing by mouth after midnight 4. Chest pain due to suspected demand ischemia , present on admission. Resolved. - Likely secondary to hypokalemia and demand ischemia. - Initial troponin elevated at 0.149. Troponins trended down. - EKG showed U-waves. - Metoprolol 12.5 mg twice a day. - Aspirin 81 mg daily. - Chest x-ray showed no acute cardiopulmonary process. - Echocardiogram unremarkable. Results above. - Electrolyte management as above. 5. Concern for suicidal thoughts, present on admission. Stable. - Patient states he is fine with dying but has no active thoughts or plans. He has been noncompliant with medications but no other attempts at suicide. - We will medically stabilized patient initially and then consider psychiatric evaluation. - Denies suicidal ideation currently. 6. Depression, present on admission. Chronic. - Patient states he was [facility] but has not followed up with them in over a year. - He has not taken his medications in over a year. - Medications included BuSpar, Celexa, and trazodone. - Citalopram 20 mg daily restarted. - Psychiatry consulted 03/24/2016, agree citalopram as appropriate choice. Reinforced the need for compliance with all medications. 7. Tobacco use, present on admission. Active. - Nicotine patch 21 mg daily. 8. Hypovolemic hyponatremia, present on admission. Resolved. - Patient states he has had poor by mouth intake. - CBC appears hemoconcentrated. - Continue monitor. 9. Acute kidney injury, present on admission. Improving. - Prerenal. - Treatment as above. 10. Diarrhea, not present on admission. Resolved. - Likely secondary to large amounts of electrolyte replacement. - Imodium Q6H PRN. 11. Transaminitis, present on admission. Active. - Persistent since admission. - Due to fatty liver disease. - Hepatitis panel negative. - Continue to monitor 12. Leukocytosis, present on admission. Improving. - Prior records from [facility] show persistent leukocytosis of unknown etiology. Patient has never completed a workup due to noncompliance. - On admission WBC 29.4. White blood cell count currently 16.1. - Procalcitonin initially 0.43. Currently 0.37. - Blood smear showed no schistocytes and path review pending. - Repeat labs and we will continue to monitor. - Will hold off empiric antibiotics. Acetaminophen for mild pain when necessary. Bowel regimen Senna and MiraLAX scheduled and PRN. Zofran when necessary for nausea and vomiting. SubQ heparin held for now. SCDs in place. Subcutaneous Lovenox currently held for biopsy tomorrow. High-risk medications: Disposition: Likely discharge tomorrow following renal biopsy. Dependent upon overnight electrolyte stability. Will be discharged home with recommendations to follow-up with psychiatric care and medication compliance. Exam Vital Signs (Last) Date Time Temp Pulse Resp B/P Pulse Ox O2 Delivery O2 Flow Rate FiO2 03/29/16 16:10 36.7 92 16 117/72 98 Room Air Exam General: Patient lying in bed in no acute distress visibly angry, actively grinding teeth when asked questions. well-developed, well-nourished, poor hygiene HEENT: Normocephalic, atraumatic. External ears without defect. Pupils equal, round, and reactive to light and accommodation. Anicteric sclerae, moist conjunctivae, and no lid lag. Oropharynx free of erythema and cobble stoning. Mucous membranes moist. Neck: Supple with full range of motion. No jugular venous distension. No bruits. No lymphadenopathy or thyromegaly. Cardiovascular: Regular rate and rhythm with no murmurs, rubs, or gallops appreciated Pulmonary: Clear to auscultation bilaterally with no crackles, wheezes, or rhonchi. Normal respiratory effort with no use of accessory muscles. Abdomen: Bowel tones present. Soft, diffuse tenderness, nondistended. No hepatosplenomegaly or masses appreciated. Extremities: No clubbing, cyanosis, edema, or lymphadenopathy appreciated. Skin: Normal temperature, turgor, and texture; no rash, ulcers, or subcutaneous nodules appreciated. Neurological: Cranial nerves grossly intact. Normal muscle strength, tone, and bulk. Reflexes, coordination, and sensory function within normal limits. No known gait impairment. Psychiatric: Alert and oriented to person, place, and time. Test 03/21/16 11:31 03/21/16 14:05 03/21/16 16:19 03/22/16 02:36 Hemoglobin A1c 5.2% (4.8-5.6) Lipase 98U/L (13-60) Hold Minor Top Tube Received (Received) Urine Random Sodium 30mEq/L Urine Random Calcium 1.7mg/dL (Not Estab.) Urine Protein/Creatinine Ratio 3.23 Total Creatine Kinase 828U/L (21-232) Uric Acid 3.3mg/dL (2.6-7.2) Blood Smear Pathologist Review Hematology Comments Lactic Acid Level 1.7mmol/L (0.4-2.0) Thyroid Stimulating Hormone (TSH) 1.460uIU/mL (0.450-4.500) Test 03/22/16 16:15 03/23/16 06:50 03/24/16 03:50 03/24/16 09:11 Procalcitonin 0.37ng/mL (0.00-0.08) Troponin T 0.015ug/L (0.0-0.011) Prealbumin 23mg/dL (20-40) Hepatitis A IgM Antibody Negative (Negative) Hepatitis B Surface Antigen Negative (Negative) Hepatitis B Core IgM Antibody Negative (Negative) Hepatitis C Antibody <0.1s/co ratio (0.0-0.9) Hepatitis C Comment Comment (.) Urine Random Potassium 26.0mEq/L Test 03/25/16 05:00 03/25/16 14:09 03/25/16 16:22 03/26/16 03:57 Erythrocyte Sedimentation Rate 10mm/hr (0-15) Gamma Glutamyl Transpeptidase 42IU/L (0-65) Myeloperoxidase <9.0U/mL (0.0-9.0) Globulin (PEP) 3.5g/dL (2.2-3.9) Albumin/Globulin Ratio 1.1 (0.7-1.7) Vetua-5-Xldethgqo 0.3g/dL (0.0-0.4) Bmfnu-2-Tsjdmgpvm 1.0g/dL (0.4-1.0) Beta Globulins 1.0g/dL (0.7-1.3) Gamma Globulins 1.1g/dL (0.4-1.8) Serum Monoclonal Protein Not observedg/dL Protein Electrophoresis Comment Comment (.) Protein Electrophoresis Interpret Comment (.) Anti-Nuclear Antibody Screen Negative (.) Cytoplasmic ANCA (c-ANCA) Antibody <1:20titer (Neg:<1:20) Proteinase 3 (PR3) Antibodies <3.5U/mL (0.0-3.5) Atypical p-ANCA <1:20titer (Neg:<1:20) Perinuclear ANCA (p-ANCA) Antibody <1:20titer (Neg:<1:20) MARIO-1 Antibody SM Antibody HOUSECLEANER FLOOR Antibody Scl-70 (Scleroderma) Antibody Anti-Double Strand DNA Antibody Anti-Ribosomal Antibody Complement C3 159mg/dL (82-167) Complement C4 25mg/dL (14-44) Urine Total Protein 39.3mg/dL (Not Estab.) Urine Albumin 23.1% (.) Urine Iygqz-4-Caancjun 9.4% (.) Urine Fyzew-8-Yppwekdch 27.4% (.) Urine Beta Globulin 31.4% (.) Urine Gamma Globulin 8.7% (.) Urine Protein Electrophoresis Note Comment (.) Urine Monoclonal Protein % Not observed% (Not Observed) Urine Random Creatinine 32mg/dL (24-392) Urine Random Total Protein 31mg/dL (0-15) Hold Urine Received (Received) Test 03/27/16 05:27 03/27/16 06:00 03/28/16 03:30 03/29/16 02:40 Metamyelocytes % 1% (0-0) Myelocytes % 2% (0-0) Triglycerides Level 212mg/dL (0-149) Cholesterol Level 151mg/dL (100-199) LDL Cholesterol, Calculated 74.600mg/dL (0-99) VLDL Cholesterol 42.400mg/dL HDL Cholesterol 34mg/dL (>39) Cholesterol/HDL Ratio 4.44 (0.0-4.4) Prothrombin Time 10.7sec (8.1-12.5) Prothromb Time International Ratio 1.00ratio Activated Partial Thromboplast Time 25.0sec (22.8-33.0) Neutrophils (%) (Auto) 34% (40-74) Lymphocytes (%) (Auto) 48% (14-46) Monocytes (%) (Auto) 6% (4-12) Eosinophils (%) (Auto) 1% (0-5) Basophils (%) (Auto) 1% (0-3) Band Neutrophils % 1% (1-5) Total Bilirubin 0.5mg/dL (0.0-1.2) Aspartate Amino Transf (AST/SGOT) 46U/L (0-50) Alanine Aminotransferase (ALT/SGPT) 72U/L (0-44) Alkaline Phosphatase 97U/L (25-150) Total Protein 7.4g/dL (6.4-8.4) Albumin 4.2g/dL (3.4-5.0) Ceruloplasmin 29.2mg/dL (16.0-31.0) White Blood Count 12.7th/mm3 (3.8-10.1) Red Blood Count 5.83mil/mm3 (4.40-5.80) Hemoglobin 17.7g/dL (13.8-17.2) Hematocrit 48.5% (41.0-50.0) Mean Corpuscular Volume 83.2fL (81-100) Mean Corpuscular Hemoglobin 30.4pg (27.0-35.0) Mean Corpuscular Hemoglobin Concent 36.5% (32.0-37.0) Red Cell Distribution Width 14.7% (12.3-15.4) Platelet Count 375bil/L (150-400) Sodium Level 131mEq/L (134-144) Potassium Level 3.0mEq/L (3.5-5.2) Chloride Level 91mEq/L (97-108) Carbon Dioxide Level 22mmol/L (18-29) Blood Urea Nitrogen 20mg/dL (6-20) Creatinine 0.97mg/dL (0.76-1.27) Estimat Glomerular Filtration Rate 98mL/min (>59) Glucose Level 103mg/dL (60-99) Calcium Level 9.0mg/dL (8.5-10.1) Ionized Calcium 1.17mmol/L (1.17-1.32) Phosphorus Level 3.3mg/dL (2.5-4.9) Magnesium Level 2.1mg/dL (1.6-2.6) Test 03/29/16 17:02 Urine Color Straw (YELLOW) Urine Appearance Hazy (CLEAR,HAZY) Urine pH 7.5 (5.0-8.0) Urine Specific [place] 1.020 (1.003-1.035) Urine Protein Tracemg/dL (NEG,TRACE) Urine Glucose (UA) Negativemg/dL (NEGATIVE) Urine Ketones Negativemg/dL (NEGATIVE) Urine Occult Blood Negative (NEGATIVE) Urine Nitrite Negative (NEGATIVE) Urine Bilirubin Negative (NEGATIVE) Urine Urobilinogen Normalmg/dL (NORMAL) Urine Leukocyte Esterase Negative (NEGATIVE) Urine RBC 0-2/hpf (0-2) Urine WBC 0-5/hpf (0-5) Urine Epithelial Cells None/hpf (NONE-MOD) Urine Crystals None seen (NONE SEEN) Urine Bacteria Few/hpf (NONE-FEW) Urine Hyaline Casts None/lpf (NONE) Urine Granular Casts None seen (NONE SEEN) Urine Waxy Casts None seen (NONE SEEN) Urine Red Blood Cell Casts None seen (NONE SEEN) Urine White Blood Cell Casts None seen (NONE SEEN) Urine Mucus None seen (None Seen) Urine Trichomonas None seen (NONE SEEN) Urine Yeast None (NONE SEEN) Urinalysis Comment None Urine Culture Reflexed Not indicated Microbiology Results MRSA screen negative. Influenza screen negative. Respiratory viral PCR negative. . Discharge Medications Discharge Medications Potassium Citrate ER (Potassium Citrate ER) 10 Meq Tablet 40 MEQ PO TIDWM Prescribed by: JOSE LA, Miscellaneous Medications Buspirone (Buspirone) 10 Mg Tablet (Reported) Citalopram (Citalopram) 20 Mg Tablet (Reported) Spironolactone (Spironolactone) 25 Mg Tablet (Reported) Trazodone (Trazodone) 100 Mg Tablet (Reported) Additional med instructions Medication changes. Increase K-citrate to 40 meq three times per day. Do not take Aspirin for 1 week. Followup Plan Follow-up plan Do not hesitate to call emergency services or your primary care physician if you experience any of the following. -High unrelenting fevers. -Uncontrolled vomiting. -Severe hypertension. -Syncope or loss of consciousness. -Chest pain or severe shortness of breath. Follow up with your primary care physician in 1-2 weeks time following your emergency department visit for medication checks and general well-being. CT-guided kidney biopsy today will discuss results during follow up appointment. Follow up with Nephrology in 1 week. Discharge Diet: Renal Diet (low protein, high potassium. ) Patient Instructions Follow up with Dr. Cook in 1 week Take Potassium citrate 3 times per day Do not hesitate to call emergency services or your primary care physician if you experience any of the following. -High unrelenting fevers. -Uncontrolled vomiting. -Severe hypertension. -Syncope or loss of consciousness. -Chest pain or severe shortness of breath. Follow up with your primary care physician in 1-2 weeks time following your emergency department visit for medication checks and general well-being. Follow-up Provider: Eliana Snyder MD Follow-up with PCP in: 1 week Time spent Greater than 30 minutes was spent in preparation of discharge with greater than 50% of that time dedicated to patient counseling and coordination of care. . Attending Statement The patient was seen and examined together with Dr. Shields on 03/29/2016 and I agree with the history, exam and plan as outlined in the note above. . copies to: Suzette Alvarenga PA-C, COREY P DO Apr 01, 2016 15:13 Tommy Barajas MD Apr 02, 2016 07:42
== END 2016-03-29 18:00 | disposition home or self-care (01) | DRG 699 ==
LOC: EDBD 10:10 → SED 13:12 → CCU 17:56 → PCC 03-24 06:45
PROVIDERS: ADMIT Internal Medicine; ATTEND Internal Medicine
DX: N25.89 Other disorders resulting from impaired renal tubular function (principal); D61.09 Other constitutional aplastic anemia; I24.8 Other forms of acute ischemic heart disease; R45.851 Suicidal ideations; F33.9 Major depressive disorder, recurrent, unspecified; N17.9 Acute kidney failure, unspecified; Z91.14 Patient's other noncompliance with medication regimen; Z59.0 Homelessness; F17.210 Nicotine dependence, cigarettes, uncomplicated; D72.829 Elevated white blood cell count, unspecified; R19.7 Diarrhea, unspecified; F12.90 Cannabis use, unspecified, uncomplicated; K76.0 Fatty (change of) liver, not elsewhere classified